=== PATIENT | female | born 1935 | race Caucasian/White ===

== ENCOUNTER 2020-09-26 15:51 | Emergency (ER) | payer MEDICARE, SELFPAY ==
--- NOTE | ~2020-09-26 | XR_ITS ---
XR hip LT min 3V w AP pelvis DATE: 09/26/2020 18:52 INDICATION: Left hip pain for 6 months, worse today. Weight-bearing pain. TECHNIQUE: AP pelvis. AP, lateral and crosstable lateral views of left hip COMPARISON: None FINDINGS: Diffuse osteopenia. Degenerative disc disease is noted at L4-5 and L5-S1. The pubic symphysis and sacroiliac joints are intact. No pelvic fracture or bone destruction is evide nt. There is joint space narrowing and prominent spurring at the left hip joint consistent with prominent osteoarthritis. No fracture or dislocation or bone destruction is evident. IMPRESSION: Severe left hip osteoarthritis Diffuse osteopenia Reviewed, dictated and finalized at location A. [employer] SAL[employer]
[2020-09-26 16:56] VITALS: BP 147/68; PULSE 84; RESP 16; TEMP 36.6; O2SAT 99
[2020-09-26 20:31] LABS: Basophils Percent Auto 0.4 % (0.2-1.2); Eosinophils Absolute Auto 0.1 K/mm3 (0-0.3); Eosinophils Percent Auto 1.2 % (0-4.4); Hemoglobin 12.5 g/dL (12.0-15.0); Immature Granulocyte Absolute 0.03 K/mm3 (0.00-0.031); Immature Granulocyte Percent A 0.4 % (0-0.5); Lymphocytes Absolute Auto 1.19 K/mm3 (0.9-3.2); Lymphocytes Percent Auto 14.2 % (18.3-44.2); Mean Corpuscular HGB Conc 32.9 g/dl (32-36); Mean Corpuscular Volume 85.2 fl (80-100); Mean Platelet Volume 10.8 fl (7.4-10.4); Monocytes Absolute Auto 1.2 K/mm3 (0.1-0.6); Monocytes Percent Auto 14.1 % (2.6-8.5); Neutrophils Absolute Auto 5.9 K/mm3 (1.3-6.7); Neutrophils Percent Auto 69.7 % (45.5-73.1); Platelet Count Result 193 k/mm3 (150-375); Red Blood Count 4.46 M/mm3 (4.2-5.4); Red Cell Distribution Width 12.8 % (11.5-14.5); White Blood Count 8.4 K/mm3 (4.5-10.0)
[2020-09-26] MEDS: ACETAMINOPHEN 500 MG TABLET 1000 MG PO (20:31)
[2020-09-26 20:40] LABS: Anion Gap 11 mmol/L (8-16); Blood Urea Nitrogen 24 mg/dL (7-17); Calcium 9.1 mg/dL (8.4-10.2); Carbon Dioxide 24 mmol/L (22-30); Chloride 99 mmol/L (98-107); Estimated CRCL calculation 26 ml/min; Estimated Glomerular Filt Rate 43; Glucose 122 mg/dL (65-105); Potassium 3.5 mmol/L (3.4-5.0); Sodium 134 mmol/L (137-145)
--- NOTE | 2020-09-26 20:53 | ED.GENADULT ---
HPI - General Adult General Chief complaint: Extremity Problem,Nontraumatic Stated complaint: left back, left leg pain Time Seen by Provider: 09/26/20 19:33 Source: patient and family Mode of arrival: ambulatory Limitations: no limitations History of Present Illness HPI narrative: Patient is an 85-year-old female who presents with low back pain that began today had trouble getting up out of her chair is localized to the lumbar region radiates into the lower extremity denies injury or trauma does have history of arthritis presents with her son patient has not been seen for this complaint patient notes she has historically taken ibuprofen with some improvement on arrival is in no distress patient notes that she has had some dark stools of late but denies any abdominal pain nausea vomiting fever chills Related Data Allergies Allergy/AdvReac Type Severity Reaction Status Date / Time adhesive tape Allergy Unknown Verified 09/17/11 15:20 benazepril Allergy Unknown Verified 08/25/12 15:14 irbesartan Allergy Unknown Verified 08/25/12 15:14 Review of Systems Review of Systems: All systems reviewed & are unremarkable except as noted in HPI and below PMFSH Family History Family History (Updated 06/13/16 @ 23:19 by DOCTOR UNKNOWN) Sibling Patient's brother is Other Family history of malignant neoplasm of breast in first degree relative Social History Social History Smoking status: Never smoker Alcohol intake: current Exam Narrative: Exam Narrative: GENERAL: Well-appearing, well-nourished, and in no acute distress. HEAD: Normocephalic, atraumatic. EYES: PERRLA and EOMI. ENT: Nares clear, no rhinorrhea or epistaxis. Mucous membranes moist. NECK: Supple. No adenopathy or masses. CHEST: Clear to auscultation. No respiratory distress. No wheezes rales or rhonchi HEART: Regular rate and rhythm. No murmur heard. Normal peripheral pulses. ABDOMEN: Soft, nontender, nondistended. Guaiac negative EXTREMITIES: Normal range of motion. No edema. Tenderness across the lower lumbar spine no rash or deformity noted SKIN: Warm, dry, no rash. NEURO: No focal deficits. Alert and oriented x3. Normal speech and gait PSYCH: Normal mood and affect. Course Course Emergency Course: Patient in the room in no distress aware of case findings treatment plan diagnosis Vital Signs Vital signs: Vital Signs Temperature 98 F 09/26/20 16:56 Pulse Rate 84 09/26/20 16:56 Respiratory Rate 16 09/26/20 16:56 Blood Pressure 147/68 H 09/26/20 16:56 Pulse Oximetry 99 09/26/20 16:56 Temperature 98 F 09/26/20 16:56 Pulse Rate 84 09/26/20 16:56 Respiratory Rate 16 09/26/20 16:56 Blood Pressure 147/68 H 09/26/20 16:56 Pulse Oximetry 99 09/26/20 16:56 Medical Decision Making MDM Narrative Medical decision making narrative: Patients pain is positional in nature and localized to back without signs of cord compression or cauda equina based on neurological exam, skeletal exam and history. No fever or other significant factors to suggest osteomyelitis or spinal epidural abscess. No symptoms or signs to suggest pain is referred from abdominal or / cardiopulmonary sources. No pulsatile masses noted on exam. Patient ambulates with steady gait and is stable for outpatient management given case findings. Vital Signs Vital Signs: Vital Signs Temperature 98 F 09/26/20 16:56 Pulse Rate 84 09/26/20 16:56 Respiratory Rate 16 09/26/20 16:56 Blood Pressure 147/68 H 09/26/20 16:56 Pulse Oximetry 99 09/26/20 16:56 Temperature 98 F 09/26/20 16:56 Pulse Rate 84 09/26/20 16:56 Respiratory Rate 16 09/26/20 16:56 Blood Pressure 147/68 H 09/26/20 16:56 Pulse Oximetry 99 09/26/20 16:56 Lab Data Result diagrams: 09/26/20 20:18 09/26/20 20:18 Labs: Lab Results 09/26/20 09/26/20 Rang
[2020-09-26] MEDS: LIDOCAINE 5% PATCH 1 PATCH TRANSDERM (21:07)
[2020-09-26 21:14] VITALS: BP 134/71; PULSE 88; RESP 16; TEMP 36.3; O2SAT 97
== END 2020-09-26 21:15 | disposition home or self-care (01) ==
PROVIDERS: Emergency Medicine Emergency Medical Services; Emergency Provider Emergency Medicine; PCP Internal Medicine
DX: M54.5 Low back pain (principal)
CPT/HCPCS: 36415; 73502; 80048; 85025; 99283; A9270

== ENCOUNTER 2021-07-10 15:05 | Inpatient (IN) | payer MEDICARE, SELFPAY ==
[2021-07-10] VITALS (35 sets, daily range): BP systolic 111–143; BP diastolic 58–84; PULSE 66–103; RESP 18–30; TEMP 36.6–36.9; O2SAT 86–100; BMI 20.4
--- NOTE | ~2021-07-10 | US_ITS ---
EXAMINATION: US thoracentesis DATE: 07/11/2021 15:03 INDICATION: pleural effusion TECHNIQUE: The procedure and its risks, benefits, and alternatives were discussed with the patient. P otential risks discussed included bleeding, infection, and pneumothorax. The patient understood the r isks and agreed to proceed. The skin was prepped and draped in sterile fashion. 1% lidocaine was used for local anesthesia. Under ultrasound guidance, a 5 Fr catheter with trochar was advanced into the left pleural effusion. Fluid was aspirated. The catheter was removed, and a dressing was applied. The re were no immediate complications. FINDINGS: Ultrasound images demonstrate a left pleural effusion and the catheter within the fluid. IMPRESSION: 1. Successful ultrasound-guided thoracentesis yielding 700 mL of clear, kalpana-colored fluid. Reviewed, dictated and finalized at location A. IMPRESSION: 1. Successful ultrasound-guided thoracentesis yielding 700 mL of clear, kalpana- colored fluid.
--- NOTE | ~2021-07-10 | CT_ITS ---
EXAMINATION: CT chest abdomen pelvis w con DATE: 07/10/2021 18:11 INDICATION: Chest pain, epigastric pain, nausea, vomiting TECHNIQUE: Computed tomography (CT) of the chest, abdomen, and pelvis was performed with 100 cc Omnip aque 350 intravenous contrast. Automated exposure control and iterative reconstruction technique were employed. Exam dose: 524.27 mGy-cm total exam DLP. COMPARISON: 07/10/2021 portable AP chest FINDINGS: CHEST CT: There are multiple hypoattenuating lesions of the left and right lobes of the thyroid gland. There is very prominent atherosclerotic irregular plaque formation and calcification of the thoracic and abdominal aorta. Coronary artery calcifications. There is cardiomegaly. No pericardial effusion. No hilar or mediastinal mass lesion or lymphadenopathy. There are are moderately large bilateral pleural effusions. There is interlobular septal soft tissue thickening throughout both lungs suggesting pulmonary inters titial edema and prominence of the fissures suggesting subpleural edema. There are patchy groundglass infiltrates in the upper lung zones and middle lobe and prominent preferentially dependent bilateral lower lobe infiltrate and/or atelectasis. Moderately large hiatal hernia. ABDOMEN/PELVIS CT: No hepatic, splenic, pancreatic, adrenal or renal space-occupying mass lesion is evident. Status post cholecystectomy. No bile duct or pancreatic duct dilatation. There is bilateral chronic pyelonephritis, more prominent on the left. No urinary tract calculus or hydroureteronephrosis is evident based upon review of the initial of the 2 current sets of images with minimal if any IV contrast material on board. There is extensive calcification of the abdominal aorta and iliac and femoral arteries. No abdominal aortic aneurysm. No intraperitoneal or retroperitoneal or pelvic mass lesion or adenopathy or ascites . Diverticulosis of left and right colon; no CT evidence of diverticulitis. Normal appendix. No bowel obstruction, bowel wall thickening, pneumatosis or intraperitoneal free air . The uterus, adnexal areas and urinary bladder are unremarkable. Severe degenerative disease of the lower cervical spine. There are degenerative changes of the thorac ic and lumbar spine including severe degenerative disc disease at L4-5 and L5-S1. Bilateral hip osteoarthritis, particularly severe on the left. IMPRESSION: Cardiomegaly, moderately large bilateral pleural effusions, pulmonary edema, bilateral p ulmonary infiltrates, suggesting congestive heart failure, pulmonary edema Patchy bilateral pulmonary infiltrates and atelectasis. Pneumonia is not excluded Small sliding hiatal hernia Status post cholecystectomy Bilateral chronic pyelonephritis, greater on the left Diverticulosis of the left and right colon; no evidence of diverticulitis Normal appendix Reviewed, dictated and finalized at Location [facility]. Reviewed, dictated and finalized at location A. IMPRESSION: Cardiomegaly, moderately large bilateral pleural effusions, pulmon petr edema, bilateral pulmonary infiltrates, suggesting congestive heart failure , pulmonary edema Patchy bilateral pulmonary infiltrates and atelectasis. Pneumonia is not exclud ed Small sliding hiatal hernia Status post cholecystectomy Bilateral chronic pyelonephritis, greater on the left Diverticulosis of the left and right colon; no evidence of diverticulitis Normal appendix
--- NOTE | ~2021-07-10 | XR_ITS ---
EXAMINATION: XR chest 1V portable DATE: 07/10/2021 15:44 INDICATION: Shortness of breath, hypoxia, difficulty breathing and chest pain. TECHNIQUE: frontal view of the chest was obtained. COMPARISON: Chest radiograph dated 02/05/2011 FINDINGS: Increased interstitial and airspace opacities in the bilateral mid and lower lung zones. More dense o pacities at the right costophrenic angle. No pneumothorax. Cardiomegaly. IMPRESSION: 1. Interstitial and airspace opacities in the bilateral mid to lower lung zones which could represent pulmonary edema or pneumonia. 2. More dense consolidation at the right costophrenic angle which could represent atelectasis, pneumo padmaja or small right pleural effusion. 3. Cardiomegaly. Reviewed, dictated and finalized at location B. IMPRESSION: 1. Interstitial and airspace opacities in the bilateral mid to lower lung zones which could represent pulmonary edema or pneumonia. 2. More dense consolidation at the right costophrenic angle which could represe nt atelectasis, pneumonia or small right pleural effusion. 3. Cardiomegaly.
--- NOTE | ~2021-07-10 | XR_ITS ---
EXAMINATION: XR chest 2V DATE: 07/13/2021 08:32 INDICATION: Congestive heart failure presenting with shortness of breath TECHNIQUE: frontal and lateral views of the chest were obtained. COMPARISON: Chest radiograph and CT dated 07/10/2021 FINDINGS: Skinfold projects over the lateral right mid and lower lung zones. Significant decrease in size of a now tiny right pleural effusion and resolution of prior left pleural effusion. Mild diffuse increased interstitial pattern in the dependent lungs consistent with mild pulmonary edema. Minimal streaky bi basilar atelectasis. No pneumothorax. Gas within a moderate-sized hiatal hernia. The cardiomediastina l silhouette is normal. Thoracic kyphosis. IMPRESSION: 1. Mild pulmonary edema in the dependent lungs along with minimal bibasilar atelectasis. 2. Moderate-sized hiatal hernia. Reviewed, dictated and finalized at location A. IMPRESSION: 1. Mild pulmonary edema in the dependent lungs along with minimal bibasilar ate lectasis. 2. Moderate-sized hiatal hernia.
--- NOTE | ~2021-07-10 | XR_ITS ---
EXAMINATION: [id number]_[id number]_CR DATE: 07/11/2021 14:54 INDICATION: Left pleural effusion status post thoracentesis. TECHNIQUE: Frontal and lateral views of the chest were obtained. COMPARISON: Chest single view 07/10/2021, chest CT 07/10/2010 on FINDINGS: There is a diffuse interstitial pattern in the lungs, consistent with mild pulmonary edema. There are airspace opacities at right lung base. There are moderate-sized right and small left pleur al effusions. No pneumothorax. Cardiomegaly is noted. IMPRESSION: 1. Moderate-sized right and small left pleural effusions with improvement on the left status post lef t thoracentesis. 2. Mild pulmonary edema. 3. Airspace opacities at right lung base, likely atelectasis. 4. Cardiomegaly. Reviewed, dictated and finalized at location A. IMPRESSION: 1. Moderate-sized right and small left pleural effusions with improvement on th e left status post left thoracentesis. 2. Mild pulmonary edema. 3. Airspace opacities at right lung base, likely atelectasis. 4. Cardiomegaly.
--- NOTE | 2021-07-10 15:32 | ECG_ITS ---
Measurements Intervals [place] Rate: 100 P: 76 PA: 196 QRS: 26 QRSD: 106 T: -35 QT: 267 QTc: 345 Interpretive Statements SINUS TACHYCARDIA ATRIAL COUPLET, ATRIAL AND VENTRICULAR PREMATURE COMPLEXES ST-T WAVE ABNORMALITY IN ANTEROLATERAL LEADS- CONSIDER ISCHEMIA BASELINE ARTIFACT- II, III, AVF, V1-V2 ABNORMAL ECG Electronically Signed On 07-10-2021 15:37:08 CDT by Alden Mason D.O.
--- NOTE | 2021-07-10 15:33 | ED.ABDPAIN ---
HPI - Abdominal Pain General Chief Complaint: Abdominal Pain Stated Complaint: CP/SOB Time Seen by Provider: 07/10/21 15:31 Source: patient Mode of arrival: ambulatory Limitations: no limitations History of Present Illness HPI narrative: Patient is an 85-year-old female with a history of hypertension, hyperlipidemia, depression, anxiety who presents for evaluation of numerous symptoms. Patient reports that her pain began in her upper abdomen shortly prior to arrival. It radiated into her chest and left shoulder. Patient denied any back pain or ripping or tearing sensation to the flank. Patient states that the pain was associated with nausea and one episode of nonbloody, nonbilious emesis. Patient with some associated epigastric pain that has lingered. She denies any current frontal chest pain. She does report shortness of breath and dry cough. She denies loss of sense of taste or smell, rhinorrhea, sore throat or congestion. She denies any fever or chills. Patient is vaccinated for Covid. No history of Covid infection. Of note, patient oxygen saturations were 70s on room air, thus the patient was placed on nonrebreather at 10 L with improvement to 94%. Related Data Home Medications Medication Instructions Recorded Confirmed atorvastatin PO 07/10/21 citalopram mg 07/10/21 diltiazem HCl PO 07/10/21 spironolactone PO 07/10/21 Allergies Allergy/AdvReac Type Severity Reaction Status Date / Time adhesive tape Allergy Unknown Unknown Verified 07/10/21 16:06 benazepril Allergy Unknown Unknown Verified 07/10/21 16:06 irbesartan Allergy Unknown Unknown Verified 07/10/21 16:06 Review of Systems Review of Systems: CONSTITUTIONAL: Denies fever, chills, or sweats. EYES: Denies visual changes, redness, or discharge. ENT: Denies rhinorrhea, congestion, sore throat, or otalgia. CARDIOVASCULAR: Denies chest pain, palpitations, or edema. RESPIRATORY: Reports cough and shortness of breath GASTROINTESTINAL: Reports abdominal pain, nausea, vomiting and diarrhea GENITOURINARY: Denies dysuria or hematuria. SKIN: Denies rash or itching. MUSCULOSKELETAL: Denies back pain, joint pain, or myalgia. NEUROLOGIC: Denies headache, numbness, or weakness. PSYCHIATRIC: Reports history of anxiety and depression [facility] Family History Family History Sibling Patient's brother is Other Family history of malignant neoplasm of breast in first degree relative Social History Social History Smoking status: Never smoker Alcohol intake: current Exam Narrative: GENERAL: Awake, alert, conversant HEAD: Normocephalic, atraumatic. EYES: PERRLA and EOMI. ENT: Nares clear, no rhinorrhea or epistaxis. Mucous membranes moist. NECK: Supple. CHEST: Tachypneic, able to speak in full sentences, coarse breath sounds bilaterally, no wheezing HEART: Tachycardic rate, sinus rhythm ABDOMEN:Non distended, mild periumbilical abdominal tenderness without rebound, rigidity or guarding EXTREMITIES: Normal range of motion. No edema. SKIN: Warm, dry, no rash. NEURO:No focal deficits. Alert and oriented x3 Course Vital Signs Vital signs: Vital Signs Temperature 36.9 C 07/10/21 15:18 Pulse Rate 103 H 07/10/21 15:18 Respiratory Rate 21 H 07/10/21 15:18 Blood Pressure 134/84 07/10/21 15:18 Pulse Oximetry 93 07/10/21 15:18 Temperature 36.9 C 07/10/21 15:18 Pulse Rate 82 07/10/21 19:31 Respiratory Rate 22 H 07/10/21 19:31 Blood Pressure 130/67 07/10/21 19:31 Pulse Oximetry 92 07/10/21 19:31 MDM - Abdominal Pain MDM Narrative Medical decision making narrative: Patient is an 85-year-old female who presented for evaluation of shortness of breath, abdominal pain, nausea and vomiting. At the time of assessment, patient is found to be profoundly hypoxic, placed on nonrebreather mask. Patient is ta
--- NOTE | 2021-07-10 15:34 | PC.NURSE ---
Pt to ED via EMS with complaints of epigastric pain, nausea, and vomiting starting today. EMS reports initial SPO2 in the 70s on their arrival. Pt was placed on 10L/NRB bringing SPO2 to 97%. Pt reports non-productive cough. Denies sob or fevers. Denies hx of O2 use.
--- NOTE | 2021-07-10 15:59 | PC.NURSE ---
O2 decreased to 6L/NC. Pt maintaining SPO2 > 90%.
[2021-07-10] MEDS: SODIUM CHLORIDE 0.9% IV 1,000 ML 999 ML IV CONT (16:05)
[2021-07-10 16:18] LABS: Alveolar/Arterial O2 Gradient 199.3 mmHg; Base Excess ABG 0.5 mEq/l (+/-2.0); Carboxyhemoglobin 0.7 % THb (0-2.0); Fractional Inspired Oxygen 40 %; HCO3 ABG 22.8 mEq/l (22.0-26.0); Methemoglobin ABG 0.4 %THb (0-1.5); Oxygen Content ABG 15.5 %vol (16.0-22.0); Oxygen Saturation ABG 89.8 % (95.0-100.0); Oxyhemoglobin 85.8 % THb (90.0-100.0); PCO2 ABG 30.1 mmHg (35.0-45.0); PO2 ABG 51.3 mmHg (80.0-100.0); PO2 FiO2 Ratio Arterial Blood 1.28 %; Reduced Hemoglobin 13.1 %THb (0-5.0); Total Hemoglobin 12.9 g/dL (12.0-18.0); pH ABG 7.498 (7.350-7.450)
[2021-07-10 16:19] LABS: Device NASAL CANNULA; Modified Allen's Test Pass; Site Drawn RIGHT RADIAL
[2021-07-10 17:27] LABS: Lactic Acid Reflex 1.7 mmol/L (0.7-2.1)
[2021-07-10 17:28] LABS: Alanine Aminotransferase 13 U/L (4-35); Alkaline Phosphatase 85 U/L (38-126); Anion Gap 8 mmol/L (8-16); Aspartate Amino Transferase 27 U/L (14-36); Bilirubin,Total 1.1 mg/dL (0.2-1.3); Blood Urea Nitrogen 13 mg/dL (7-17); Calcium 9.1 mg/dL (8.4-10.2); Carbon Dioxide 23 mmol/L (22-30); Chloride 101 mmol/L (98-107); Estimated CRCL calculation 34 ml/min; Estimated Glomerular Filt Rate 60; Glucose 111 mg/dL (65-110); Lipase 107 U/L (23-300); Potassium 3.3 mmol/L (3.4-5.0); Sodium 132 mmol/L (137-145)
[2021-07-10 17:32] LABS: INR 1.1; Prothrombin Time 13.8 Seconds (11.1-14.7)
[2021-07-10 17:39] LABS: NT Pro B Type Natriuretic Pept 4240 pg/mL (5-100)
[2021-07-10 17:44] LABS: Hematocrit 40.2 % (37.0-47.0); Hemoglobin 13.1 g/dL (12.0-15.0); Mean Corpuscular HGB Conc 32.6 g/dl (32-36); Mean Corpuscular Hemoglobin 28.7 pg (26-34); Mean Platelet Volume 10.8 fl (7.4-10.4); Platelet Count Result 162 k/mm3 (150-375); Red Blood Count 4.57 M/mm3 (4.2-5.4); Red Cell Distribution Width 12.5 % (11.5-14.5); White Blood Count 11.8 K/mm3 (4.5-10.0)
[2021-07-10 17:51] LABS: Partial Thromboplastin Time < 20.0 SECONDS (22.3-36.8); Troponin I 0.328 ng/mL (0.000-0.034)
[2021-07-10 18:38] LABS: EDCOVIDSCREEN Negative (Negative)
[2021-07-10 18:40] LABS: Band Neutrophils Percent 2 % (0-6); Monocytes Absolute Manual 1.18 K/mm3 (0.1-0.90); Monocytes Percent Manual 10 % (3-9); Neutrophils Absolute Manual 9.91 K/mm3 (1.7-7.2); Neutrophils Percent Manual 82 % (46-73); Platelet Estimate Adequate (Adequate); Total Cells Counted 100
[2021-07-10] MEDS: FUROSEMIDE INJ 40 MG/4 ML VIAL 20 MG IV PUSH (19:03)
[2021-07-10 19:25] LABS: Troponin I 0.686 ng/mL (0.000-0.034)
--- NOTE | 2021-07-10 20:00 | PM.IMHP ---
H&P: HPI History of Present Illness Date/Time: 07/10/21 20:00 Chief Complaint: Multiple complaints Narrative: 85-year-old female with past medical history of breast cancer, malignant melanoma, hypertension, hyperlipidemia and prior cholecystectomy who presented to the ER with multiple complaints. Her main complaint which was upper abdominal pain that started just prior to arrival. Pain radiated to her chest and left shoulder. Her pain was associated with 1 episode of vomiting and persistent nausea. She reports frequent GERD symptoms if she eats the wrong types of food. Her emesis was nonbloody and nonbilious. Her upper abdominal pain has been persistent. But had resolved by the time she err arrived to the IMU. She has had associated shortness of breath and dry cough for the last 2 weeks or so. She has not had any fevers, chills, rhinorrhea, nasal congestion, or loss of sense of taste or smell. She denies any recent ill contacts. She is fully vaccinated against COVID-19 with a [employer] vaccine at least several months ago. Patient was markedly hypoxic on arrival to the ER with sats in 70s. She to was placed on 10 L nasal cannula to maintain oxygen saturations of 92%. On arrival to the IMU the patient was satting 83% and her oxygen was increased to 15 L high-flow but remained with oxygen saturations of 85%. She was reporting persistent heartburn and nausea. She reported resolution of her abdominal pain. She was afebrile on presentation. She denies any orthopnea, paroxysmal nocturnal dyspnea or lower extremity swelling. She reports chronic swelling of the right lower extremity ever since she had her twin sons. CT of the chest abdomen pelvis with contrast demonstrated cardiomegaly, moderately large bilateral pleural effusions, pulmonary edema, bilateral pulmonary infiltrates and chronic bilateral pyelonephritis left greater than right. She received initial treatment with pain medications and IV fluids. After imaging result returned the patient received Lasix 20 mg in the ER and was initiated on antibiotic therapy with Rocephin and azithromycin for possible pneumonia given her mild leukocytosis. Her rapid COVID screen was negative. Review of Systems Review of Systems: 12 systems were reviewed with pertinent positives and negatives per HPI. Except as documented in the HPI, all other systems were reviewed and are negative. [facility] Past Medical History Medical History (Updated 07/10/21 @ 20:54 by Radha Basilio DO) Anxiety Breast cancer Depression Dermatomyositis Esophageal dilatation (~1999) Essential hypertension GERD (gastroesophageal reflux disease) Hyperlipidemia Malignant melanoma (~2009) Excised from right arm Migraines Surgical History Surgical History (Updated 07/10/21 @ 20:24 by Radha Basilio DO) History of classical section 6 para 7 History of colonoscopy with polypectomy History of hip surgery Right hip surgery at 9 years old at which time she required a blood transfusion History of partial mastectomy of right breast (~2010) Status post cataract extraction of both eyes with insertion of intraocular lens Status post cholecystectomy Open cholecystectomy Family History Family History Sibling Acute myocardial infarction, Onset Age: 70 Mother Old age, Onset Age: 95 Father Parkinsons disease, Onset Age: 80 Sibling Acute myocardial infarction, Onset Age: 49 Tobacco abuse disorder Daughter Breast cancer Other Family history of malignant neoplasm of breast in first degree relative Social History Social History (Updated 07/10/21 @ 22:19 by Radha Basilio DO) Social History: She is . She lives alone in a town home. 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 She has 7 children 6 sons and 1 daughter. Code status: DNR/DNI per patient request
[2021-07-10] MEDS: POTASSIUM CHLORIDE 20 MEQ TABLET 40 MEQ PO (20:14)
[2021-07-10] MEDS: FUROSEMIDE INJ 40 MG/4 ML VIAL IV PUSH (20:16)
[2021-07-10] MEDS: ONDANSETRON INJ 4 MG/2 ML VIAL IV PUSH (20:41)
[2021-07-10 21:14] LABS: Add Urine Microscopic? NO; Appearance Urine Clear (Clear); Bilirubin Urine Negative (Negative); Blood Urine Negative (Negative); Color Urine Yellow (Yellow); Glucose Urine UA Negative (Negative); Ketones Urine Negative (Negative); Leukocyte Esterase Ur Negative LEU/UL (Negative); Nitrate Urine Negative (Negative); Protein Urine Negative (Negative); Urobilinogen Urine 0.2 mg/dL (<2.0); pH Urine 6.5 (5.0-9.0)
--- NOTE | 2021-07-10 21:48 | ECG_ITS ---
Measurements Intervals [place] Rate: 77 P: [place]: 0 QRS: 43 QRSD: 98 T: -1 QT: 402 QTc: 457 Interpretive Statements SINUS RHYTHM BORDERLINE ST-T WAVE ABNORMALITY- ANTEROLAT/INF LEADS BASELINE ARTIFACT- I, II, III, AVR, AVL, AVF, V1-V6 BORDERLINE ECG Electronically Signed On 07-11-2021 8:35:46 CDT by Alden Mason D.O.
[2021-07-10] MEDS: WATER FOR IRRIGATION, STERILE 1,000 ML BOTTLE 1000 ML (21:59)
--- NOTE | 2021-07-10 22:05 | PC.NURSE ---
This patient, Sharri Ramirez, was admitted to IMU Room 232-01 on 07/10/21 at 2206. Patient/family oriented to hospital policies and general routines including ID bracelet, bed and alarms, visiting hours, pain management, procedures, bathroom and other care routines, personal items, smoking policy, room service/diet, and visiting hours. Information on how to activate the Rapid Response Team has been discussed. Patient/Family are encouraged to report perceived risks to care and to ask questions if they do not understand what they are told or what they should do.
[2021-07-10] MEDS: FAMOTIDINE 20 MG/2 ML VIAL IV PUSH (22:26)
[2021-07-10] MEDS: ASPIRIN 325 MG TABLET PO (23:25)
[2021-07-11] VITALS (21 sets, daily range): BP systolic 119–132; BP diastolic 56–92; PULSE 57–89; RESP 14–26; TEMP 36.3–36.9; O2SAT 92–100
[2021-07-11] MEDS: ENOXAPARIN 60 MG/0.6 ML SYRINGE 54 MG SUB-Q ×2 (00:43→21:37)
[2021-07-11 05:19] LABS: Hematocrit 35.7 % (37.0-47.0); Hemoglobin 11.8 g/dL (12.0-15.0); Mean Corpuscular HGB Conc 33.1 g/dl (32-36); Mean Corpuscular Hemoglobin 28.4 pg (26-34); Mean Corpuscular Volume 85.8 fl (80-100); Mean Platelet Volume 11.3 fl (7.4-10.4); Platelet Count Result 168 k/mm3 (150-375); Red Blood Count 4.16 M/mm3 (4.2-5.4); Red Cell Distribution Width 12.3 % (11.5-14.5); White Blood Count 5.8 K/mm3 (4.5-10.0)
[2021-07-11 05:33] LABS: Anion Gap 6 mmol/L (8-16); Blood Urea Nitrogen 11 mg/dL (7-17); Calcium 9.2 mg/dL (8.4-10.2); Carbon Dioxide 27 mmol/L (22-30); Chloride 102 mmol/L (98-107); Estimated CRCL calculation 35 ml/min; Estimated Glomerular Filt Rate 60; Glucose 104 mg/dL (65-110); Magnesium 1.5 mg/dL (1.6-2.3); Potassium 3.7 mmol/L (3.4-5.0); Sodium 135 mmol/L (137-145)
[2021-07-11 05:50] LABS: Amylase 61 U/L (30-110); Cholesterol 113 mg/dL (0-200); Lactate Dehydrogenase 364 U/L (313-618); Triglycerides 68 mg/dL (<150)
--- NOTE | 2021-07-11 06:08 | ECG_ITS ---
Measurements Intervals [place] Rate: 80 P: 90 MO: 185 QRS: 43 QRSD: 102 T: -15 QT: 387 QTc: 447 Interpretive Statements SINUS RHYTHM NONSPECIFIC ST & T-WAVE ABNORMALITY- ANT/INF LEADS BORDERLINE ECG Electronically Signed On 07-11-2021 9:15:13 CDT by Alden Mason D.O.
--- NOTE | 2021-07-11 08:23 | PM.CNCAR ---
Assessment and Plan Assessment and plan (1) Elevated troponin: Code(s): R77.8 - Other specified abnormalities of plasma proteins Status: Acute Assessment and Plan: Troponin trending up and not peaked. Could be due to pneumonia and CHF. ACS not ruled out. Agree with Lovenox, aspirin. Stop Diltiazem. Start Metoprolol Tartate 50 mg BID. Obtain echo. (2) Pneumonia: Qualifiers: Laterality: bilateral Lung location: lower lobe of lung Pneumonia type: due to unspecified organism Qualified Code(s): J18.9 - Pneumonia, unspecified organism Code(s): J18.9 - Pneumonia, unspecified organism Status: Acute Assessment and Plan: On antibiotics and managed per hospitalist. Covid status pending. (3) Acute respiratory failure with hypoxia: Code(s): J96.01 - Acute respiratory failure with hypoxia Status: Acute Assessment and Plan: Due to large pleural effusions, diagnostic and therapeutic thoracentesis has been ordered. (4) Hypertension: Code(s): I10 - Essential (primary) hypertension Status: Acute Assessment and Plan: Stable. (5) Dyslipidemia: Code(s): E78.5 - Hyperlipidemia, unspecified Status: Acute Assessment and Plan: On Atorvastatin. History of Present Illness History of Present Illness Consult date/time: 07/11/21 08:23 Reason for consult: Elevated troponin and CHF. 85 yr old woman presented to ER last night for abdominal pain. She has a history of dyslipidemia, hypertension. Most information obtained from chart as patient is on CPAP machine currently. States she had abdominal pain radiating to chest and left shoulder that resolved now. She had vomited once and had nausea. Her pulse ox was 70's in ER that improved with Lasix and oxygen to low 90% range. EKG shows sinus tachycardia at 100 bpm, PAC's and PVC, ST-T wave abnormality, consider anterolateral ischemia. Troponin 0.328 went to 1.7 on fourth draw. ABG 7.49/30/51 n 40% FiO2. CT chest: Moderately large bilateral pleural effusions with pulm edema. Patchy bilateral infiltrates could be pneumonia. Chronic bilateral pyeloonephritis. Mag 1.5. Potassium 3.3, Sodium 132, WBC 11.8. Reason For Visit: Respiratory failure, Pneumonia, CHF Review of Systems Review of Systems: All systems reviewed & are unremarkable except as noted in HPI and below Constitutional: Constitutional: Reports as per HPI, Denies chills and Denies fever(s) Cardiovascular: Cardiovascular: Reports as per HPI, Reports chest pain, Denies leg edema and Denies lightheadedness Respiratory: Respiratory: Reports as per HPI and Reports dyspnea Gastrointestinal: Gastrointestinal: Reports as per HPI and Reports abdominal pain Genitourinary: Genitourinary: Reports as per HPI Musculoskeletal: Musculoskeletal: Reports as per HPI Neurologic: Reports as per HPI, Denies dizziness and Denies syncope [facility] Past Medical History Medical History (Updated 07/11/21 @ 08:30 by Alden Mason DO) Anxiety Breast cancer Depression Dermatomyositis Esophageal dilatation (~1999) Essential hypertension GERD (gastroesophageal reflux disease) Hyperlipidemia Malignant melanoma (~2009) Excised from right arm Migraines Surgical History Surgical History (Updated 07/10/21 @ 20:24 by Radha Basilio DO) History of classical section 6 para 7 History of colonoscopy with polypectomy History of hip surgery Right hip surgery at 9 years old at which time she required a blood transfusion History of partial mastectomy of right breast (~2010) Status post cataract extraction of both eyes with insertion of intraocular lens Status post cholecystectomy Open cholecystectomy Family History Family History Sibling Acute myocardial infarction, Onset Age: 70 Mother Old age, Onset Age: 95 Father Parkinsons disease, Onset Age: 80
[2021-07-11] MEDS: FUROSEMIDE INJ 40 MG/4 ML VIAL IV PUSH ×2 (09:55→16:54)
[2021-07-11] MEDS: FAMOTIDINE 20 MG/2 ML VIAL IV PUSH ×2 (09:55→21:37)
[2021-07-11] MEDS: ATORVASTATIN 20 MG TABLET PO (09:56)
[2021-07-11] MEDS: METOPROLOL TARTRATE 50 MG TAB PO ×2 (09:56→21:37)
[2021-07-11] MEDS: MAGNESIUM SULF 2 GM/WATER 50ML 2 GM/50 ML BAG IVPB (09:56)
[2021-07-11] MEDS: CITALOPRAM HYDROBROMIDE 20 MG TABLET PO (09:56)
[2021-07-11] MEDS: ASPIRIN 81 MG CHEWABLE TABLET PO (09:56)
[2021-07-11] MEDS: SPIRONOLACTONE 25 MG TABLET PO (09:57)
--- NOTE | 2021-07-11 13:48 | PM.IMPN ---
Progress Note: A&P Assessment and Plan (1) Acute respiratory failure with hypoxia: Code(s): J96.01 - Acute respiratory failure with hypoxia Status: Acute (2) Elevated troponin: Code(s): R77.8 - Other specified abnormalities of plasma proteins Status: Acute (3) Pneumonia: Qualifiers: Laterality: bilateral Lung location: lower lobe of lung Pneumonia type: due to unspecified organism Qualified Code(s): J18.9 - Pneumonia, unspecified organism Code(s): J18.9 - Pneumonia, unspecified organism Status: Acute (4) Hypokalemia: Code(s): E87.6 - Hypokalemia Status: Acute (5) Acute respiratory alkalosis: Code(s): E87.3 - Alkalosis Status: Acute Additional Plan Acute hypoxic respiratory failure on high-flow oxygen via nasal cannula need to put on CPAP. Likely related to combination of CHF and pneumonia. ABG with respiratory alkalosis Congestive heart failure echo pending cardiology on board. Diuresis with 40 mg IV Lasix twice daily. BNP at [address]-elevation [place] troponin peaking at 1.7 on Lovenox. No active chest pain no acute changes in the EKG. Could be from underlying CHF/pneumonia further workup per Cardiology Bilateral pneumonia continue on ceftriaxone and azithromycin. Rapid swab for COVID negative sent for COVID PCR await that continue on airborne precautions for possible COVID. She has been vaccinated with Pelon & Pelon vaccine several months ago. Hypomagnesemia replace Bilateral pleural effusion planned for thoracentesis sent for pleural fluid analysis likely due to CHF DVT prophylaxis full-dose Lovenox Abnormal CT scan showing bilateral chronic pyelonephritis greater on the left side urinalysis here is negative Do not resuscitate Subjective Date/time seen: 07/11/21 13:48 Interval history: Remains on CPAP. She reports shortness of breath but is better since placed on CPAP. She denies any chest pain. No leg swelling reported. There is history of cough Review of Systems Review of Systems: All systems reviewed & are unremarkable except as noted in HPI and below Exam Narrative: General: Frail, elderly, no acute distress on CPAP HEENT: Head is normocephalic atraumatic Respiratory: Decreased breath sounds at the bases bilaterally no accessory muscle use Cardiovascular: Regular rate, regular rhythm, 2+ bilateral radial pedal pulses, no JVD Gastrointestinal: Soft, nontender, nondistended, positive bowel sounds, no mayco hepatosplenomegaly Skin: Generalized pallor, non jaundice Musculoskeletal: No clubbing, no cyanosis, no edema Neurological: Alert and oriented x3, speech is clear, no facial asymmetry, no localizing neurologic deficits noted on limited exam Psychiatric: Pleasant and cooperative Objective Data Vital Signs Vital Signs: Vital Signs - 24 hr 07/10/21 15:18 07/10/21 15:30 07/10/21 16:05 Temperature 98.5 F Pulse Rate 103 H 102 H 95 Respiratory Rate 21 H 26 H 18 Blood Pressure 134/84 128/69 124/61 Pulse Oximetry 93 94 91 07/10/21 16:10 07/10/21 16:15 07/10/21 16:16 Temperature Pulse Rate 95 93 91 Respiratory Rate 23 H 23 H 25 H Blood Pressure 131/67 Pulse Oximetry 88 L 07/10/21 16:30 07/10/21 16:31 07/10/21 16:45 Temperature Pulse Rate 85 84 85 Respiratory Rate 26 H 24 H Blood Pressure 129/67 Pulse Oximetry 90 89 L 07/10/21 16:46 07/10/21 17:00 07/10/21 17:01 Temperature Pulse Rate 84 92 86 Respiratory Rate 25 H 28 H Blood Pressure 141/59 H 132/73 Pulse Oximetry 92 90 07/10/21 17:02 07/10/21 17:15 07/10/21 17:16 Temperature Pulse Rate 82 83 87 Respiratory Rate 20 20 24 H Blood Pressure 130/58 L Pulse Oximetry 91 94 95 07/10/21 17:30 07/10/21 17:31 07/10/21 17:32 Temperature Pulse Rate 83 80 78 Respiratory Rate 20 26 H 20 Blood Pressure 130/66 Pulse Oximetry 90 89 L 90 07/10/21 18:04 07/10/21 18:23 07/10/21 18:30 Temperature Pulse Rate
[2021-07-11 18:58] LABS: Pleural fluid source Pleural fluid
[2021-07-11 18:59] LABS: Appearance Pleural Fluid Hazy (Clear); Color Pleural Fluid Yellow (Colorless); Nucleated Cell Pleural Fluid 548 /uL (0-1000)
[2021-07-11 19:00] LABS: Lymphocytes Pleural Fluid 51 %; Macrophages Pleural Fluid 4 %; Mesothelial Cells Pleural Flui 2 %; Monocytes Pleural Fluid 40 %; Neutrophils Pleural Fluid 3 % (0-25); RBC Pleural Fluid 3832 /uL (0-0)
[2021-07-11 20:01] LABS: SARS-CoV-2 RNA PCR Negative
[2021-07-12] VITALS (25 sets, daily range): BP systolic 103–141; BP diastolic 48–89; PULSE 59–77; RESP 12–18; TEMP 36.2–37; O2SAT 93–100
[2021-07-12 05:18] LABS: Basophils Percent Auto 0.6 % (0.2-1.2); Eosinophils Absolute Auto 0.1 K/mm3 (0-0.3); Eosinophils Percent Auto 2.3 % (0-4.4); Hematocrit 37.5 % (37.0-47.0); Hemoglobin 12.1 g/dL (12.0-15.0); Immature Granulocyte Absolute 0.02 K/mm3 (0.00-0.031); Immature Granulocyte Percent A 0.4 % (0-0.5); Lymphocytes Absolute Auto 0.88 K/mm3 (0.9-3.2); Lymphocytes Percent Auto 16.7 % (18.3-44.2); Mean Corpuscular HGB Conc 32.3 g/dl (32-36); Mean Corpuscular Hemoglobin 28.3 pg (26-34); Mean Corpuscular Volume 87.8 fl (80-100); Mean Platelet Volume 11.2 fl (7.4-10.4); Monocytes Absolute Auto 0.8 K/mm3 (0.1-0.6); Monocytes Percent Auto 15.7 % (2.6-8.5); Neutrophils Absolute Auto 3.4 K/mm3 (1.3-6.7); Neutrophils Percent Auto 64.3 % (45.5-73.1); Platelet Count Result 163 k/mm3 (150-375); Red Blood Count 4.27 M/mm3 (4.2-5.4); Red Cell Distribution Width 12.5 % (11.5-14.5); White Blood Count 5.3 K/mm3 (4.5-10.0)
[2021-07-12 05:29] LABS: Calcium 8.8 mg/dL (8.4-10.2); Chloride 99 mmol/L (98-107); Estimated CRCL calculation 31 ml/min; Estimated Glomerular Filt Rate 53; Potassium 3.4 mmol/L (3.4-5.0)
[2021-07-12 05:44] LABS: Troponin I 0.612 ng/mL (0.000-0.034)
[2021-07-12 06:06] LABS: Anion Gap 8 mmol/L (8-16); Blood Urea Nitrogen 16 mg/dL (7-17); Carbon Dioxide 26 mmol/L (22-30); Glucose 92 mg/dL (65-110); Magnesium 1.8 mg/dL (1.6-2.3); Sodium 133 mmol/L (137-145)
--- NOTE | 2021-07-12 07:41 | PM.PNCARD ---
Progress Note: A&P Assessment and Plan (1) Elevated troponin: Code(s): R77.8 - Other specified abnormalities of plasma proteins Status: Acute Assessment and Plan: Troponin trending up and peaked at 1.7. Could be due to pneumonia and CHF. Doubt ACS. On Lovenox, aspirin. Stop Diltiazem. On Metoprolol Tartate 50 mg BID. Change Lovenox to DVT prophylaxis dose. Obtain echo. (2) Pneumonia: Qualifiers: Laterality: bilateral Lung location: lower lobe of lung Pneumonia type: due to unspecified organism Qualified Code(s): J18.9 - Pneumonia, unspecified organism Code(s): J18.9 - Pneumonia, unspecified organism Status: Acute Assessment and Plan: On antibiotics and managed per hospitalist. Covid status pending. (3) Acute respiratory failure with hypoxia: Code(s): J96.01 - Acute respiratory failure with hypoxia Status: Acute Assessment and Plan: Due to large pleural effusions, diagnostic and therapeutic thoracentesis has been ordered. (4) Hypertension: Code(s): I10 - Essential (primary) hypertension Status: Acute Assessment and Plan: Stable. (5) Dyslipidemia: Code(s): E78.5 - Hyperlipidemia, unspecified Status: Acute Assessment and Plan: On Atorvastatin. Subjective Date/time seen: 07/12/21 07:41 Denies chest pain. States breathing is better. Exam Const: General: cooperative, healthy appearing and comfortable Resp: Auscultation: no crackles, no rales, no rhonchi, no wheezes and diminished lung sounds Cardio: Jugular venous distension: no JVD Rate: regular rate Rhythm: regular rhythm Heart sounds: no murmurs Peripheral pulses: dorsalis pedis present GI: GI Palp: No abdominal tenderness and Yes Soft to palpation Neuro: General: oriented to person, oriented to place and oriented to time Extrem: Right lower extremity: no edema Left lower extremity: no edema Objective Data Vital Signs Vital Signs: Vital Signs - 24 hr 07/11/21 08:00 07/11/21 08:09 07/11/21 09:56 Temperature 97.8 F Pulse Rate 88 82 83 Respiratory Rate 20 Blood Pressure 119/74 Pulse Oximetry 92 100 07/11/21 10:00 07/11/21 11:18 07/11/21 11:58 Temperature 98.4 F Pulse Rate 79 70 Respiratory Rate 14 Blood Pressure 125/64 Pulse Oximetry 93 93 100 07/11/21 12:00 07/11/21 13:29 07/11/21 15:49 Temperature Pulse Rate 73 75 Respiratory Rate Blood Pressure Pulse Oximetry 94 07/11/21 16:00 07/11/21 17:42 07/11/21 20:00 Temperature 98.1 F 97.3 F L Pulse Rate 74 71 76 Respiratory Rate 16 16 Blood Pressure 132/92 H 122/56 L Pulse Oximetry 100 98 07/11/21 21:37 07/11/21 22:00 07/11/21 23:30 Temperature Pulse Rate 89 75 Respiratory Rate Blood Pressure Pulse Oximetry 94 07/11/21 23:47 07/12/21 00:00 07/12/21 02:00 Temperature 97.2 F L Pulse Rate 69 75 71 Respiratory Rate 26 H 12 Blood Pressure 132/66 Pulse Oximetry 99 100 07/12/21 04:00 07/12/21 06:00 Temperature 97.5 F L Pulse Rate 75 67 Respiratory Rate 18 Blood Pressure 141/67 H Pulse Oximetry 96 Intake/Output Intake/Output: Intake & Output 07/09/21 07/10/21 07/11/21 07/12/21 23:59 23:59 23:59 23:59 Intake Total 1050 1140 100 Output Total 2900 Balance 1050 -1760 100 Meds/Results Medications: Active Medications Generic Name Dose Route Start Last Admin Trade Name Freq PRN Reason Stop Dose Admin Acetaminophen 650 mg 07/10/21 18:55 Acetaminophen 325 Mg Tablet PO Q4H PRN Mild Pain (1-3) or Fever Aspirin 81 mg 07/11/21 08:00 07/11/21 09:56 Aspirin 81 Mg Chewable Tablet PO 81 mg DAILY@0800 FELIX Administration Atorvastatin Calcium 20 mg 07/11/21 09:00 07/11/21 09:56 Atorvastatin 20 Mg Tablet PO 20 mg DAILY FELIX Administration Calcium Carbonate 200 mg 07/10/21 23:28 Calcium Carbonate (Tums) 500 Mg (200 Mg Elemental) PO PRN PRN H
[2021-07-12] MEDS: FUROSEMIDE INJ 40 MG/4 ML VIAL IV PUSH ×2 (08:42→17:17)
[2021-07-12] MEDS: ASPIRIN 81 MG CHEWABLE TABLET PO (08:42)
[2021-07-12] MEDS: FAMOTIDINE 20 MG/2 ML VIAL IV PUSH ×2 (08:42→20:05)
[2021-07-12] MEDS: ATORVASTATIN 20 MG TABLET PO (08:42)
[2021-07-12] MEDS: METOPROLOL TARTRATE 50 MG TAB PO ×2 (08:42→20:05)
[2021-07-12] MEDS: CITALOPRAM HYDROBROMIDE 20 MG TABLET PO (08:42)
[2021-07-12] MEDS: SPIRONOLACTONE 25 MG TABLET PO (08:42)
[2021-07-12] MEDS: ENOXAPARIN 40 MG/0.4 ML SYRINGE SUB-Q (09:09)
--- NOTE | 2021-07-12 13:48 | PM.IMPN ---
Progress Note: A&P Assessment and Plan (1) Acute respiratory failure with hypoxia: Code(s): J96.01 - Acute respiratory failure with hypoxia Status: Acute (2) Elevated troponin: Code(s): R77.8 - Other specified abnormalities of plasma proteins Status: Acute (3) Pneumonia: Qualifiers: Laterality: bilateral Lung location: lower lobe of lung Pneumonia type: due to unspecified organism Qualified Code(s): J18.9 - Pneumonia, unspecified organism Code(s): J18.9 - Pneumonia, unspecified organism Status: Acute (4) Hypokalemia: Code(s): E87.6 - Hypokalemia Status: Acute (5) Acute respiratory alkalosis: Code(s): E87.3 - Alkalosis Status: Acute Additional Plan # Acute hypoxic respiratory failure on high-flow oxygen via nasal cannula need to put on CPAP. Likely related to combination of CHF and pneumonia. ABG with respiratory alkalosis # Congestive heart failure echo with moderate aortic valve sclerosis with mild stenosis, [id number] MR /TR mild pulmonary hypertension, EF 60-65%. cardiology on board. Diuresis with 40 mg IV Lasix twice daily. BNP at 4240 # Non ST-elevation [place] troponin peaking at 1.7 on Lovenox. No active chest pain no acute changes in the EKG. Could be from underlying CHF/pneumonia further workup per Cardiology # Bilateral pneumonia continue on ceftriaxone and azithromycin. Rapid swab for COVID negative sent for COVID PCR await that continue on airborne precautions for possible COVID. She has been vaccinated with Pelon & Pelon vaccine several months ago. # Hypomagnesemia replace # Bilateral pleural effusion Status post left thoracentesis with removal of 700 mL of clear [place] colored fluid. Pleural fluid analysis pending ?hemorrhagic / traumatic tap. Pleural fluid Gram stain with moderate WBC continue antibiotic. Will continue to wait for further pleural fluid analysis # DVT prophylaxis full-dose Lovenox # Abnormal CT scan showing bilateral chronic pyelonephritis greater on the left side urinalysis here is negative # Do not resuscitate Subjective Date/time seen: 07/12/21 13:48 Interval history: Feeling much better today. She has been off CPAP. She has been on 4 L nasal cannula and has been remained stable. Some cough denies shortness of breath no chest pain Review of Systems Review of Systems: All systems reviewed & are unremarkable except as noted in HPI and below Exam Narrative: General: Frail, elderly, no acute distress on 4 L nasal cannula HEENT: Head is normocephalic atraumatic Respiratory: clear to auscultation bilaterallyno accessory muscle use Cardiovascular: Regular rate, regular rhythm, 2+ bilateral radial pedal pulses, no JVD Gastrointestinal: Soft, nontender, nondistended, positive bowel sounds, no mayco hepatosplenomegaly Skin: Generalized pallor, non jaundice Musculoskeletal: No clubbing, no cyanosis, no edema Neurological: Alert and oriented x3, speech is clear, no facial asymmetry, no localizing neurologic deficits noted on limited exam Psychiatric: Pleasant and cooperative Objective Data Vital Signs Vital Signs: Vital Signs - 24 hr 07/11/21 15:49 07/11/21 16:00 07/11/21 17:42 Temperature 98.1 F Pulse Rate 74 71 Respiratory Rate 16 Blood Pressure 132/92 H Pulse Oximetry 94 100 07/11/21 20:00 07/11/21 21:37 07/11/21 22:00 Temperature 97.3 F L Pulse Rate 76 89 75 Respiratory Rate 16 Blood Pressure 122/56 L Pulse Oximetry 98 07/11/21 23:30 07/11/21 23:47 07/12/21 00:00 Temperature 97.2 F L Pulse Rate 69 75 Respiratory Rate 26 H 12 Blood Pressure 132/66 Pulse Oximetry 94 99 100 07/12/21 02:00 07/12/21 04:00 07/12/21 06:00 Temperature 97.5 F L Pulse Rate 71 75 67 Respiratory Rate 18 Blood Pressure 141/67 H Pulse Oximetry 96 07/12/21 07:50 07/12/21 08:00 07/12/21 08:40 Temperature 98.4 F Pulse Rate 66 71 Respiratory Rate 14 Bl
--- NOTE | 2021-07-12 19:50 | ECHO_ITS ---
Patient Info Name: Sharri Ramirez Age: 85 years : 1935 Gender: Female Ht: 64 in Wt: 117 lbs BSA: 1.55 m2 HR: 104 bpm BP: 131 / 87 mmHg Exam Date: 07/12/2021 9:39 AM Exam Location: [facility] Patient Status: Inpatient Admit Date: 07/10/2021 Staff Ordering Physician: Radha Basilio DO [facility] Lab Technician: Jason Portillo RDCS, RT Attending Provider: Benson Izquierdo MD Referring Physician: Praful FENG; Exam Type: CA echo doppler color flow Study Info Indications I50.9 - Heart failure, unspecified Complete two-dimensional, color flow and Doppler transthoracic echocardiogram is performed. Strain analysis performed. Summary 1. Complete two-dimensional, color flow and Doppler transthoracic echocardiogram is performed. 2. Left ventricular chamber dimension is normal. 3. Ventricular septum is moderately sigmoid shaped. No LVOT obstruction. 4. Left ventricular systolic function is normal, estimated at 60-65%. 5. There is mildly increased left ventricular wall thickness. 6. The left ventricular diastolic function is abnormal. 7. E/e '17 is elevated. 8. Global longitudinal strain is abnormal at -12.5%. 9. Left atrial chamber dimension is severely enlarged. 10. There is moderate aortic valve sclerosis. 11. There is mild aortic valve stenosis with a peak velocity of 198 cm/s, mean gradient of 8 mmHg, and aortic valve area of 1.7 cm2. 12. There is trace aortic valve regurgitation. 13. The mitral valve has moderately calcified annulus. 14. There is mild to moderate mitral valve regurgitation. 15. There is mild to moderate tricuspid valve regurgitation. 16. Mild pulmonary hypertension, estimated pulmonary arterial systolic pressure is 43 mmHg. Left Ventricle E/e '17 is elevated. Global longitudinal strain is abnormal at -12.5%. Ventricular septum is moderately sigmoid shaped. No LVOT obstruction. Left ventricular chamber dimension is normal. Left ventricular systolic function is normal, estimated at 60-65%. There is mildly increased left ventricular wall thickness. The left ventricular diastolic function is abnormal. Right Ventricle Right ventricular systolic function is normal and with normal TAPSE 1.8 cm.. Right ventricular chamber dimension is normal. Left Atria Left atrial chamber dimension is severely enlarged. Right Atria Right atrial chamber dimension is normal. Aortic Valve The aortic valve is trileaflet. There is moderate aortic valve sclerosis. There is mild aortic valve stenosis with a peak velocity of 198 cm/s, mean gradient of 8 mmHg, and aortic valve area of 1.7 cm2. There is trace aortic valve regurgitation. Pulmonic Valve There is no pulmonic regurgitation. Mitral Valve The mitral valve has moderately calcified annulus. There is no mitral valve stenosis. There is mild to moderate mitral valve regurgitation. Tricuspid Valve There is mild to moderate tricuspid valve regurgitation. Mild pulmonary hypertension, estimated pulmonary arterial systolic pressure is 43 mmHg. Pericardium/Pleural There is no pericardial effusion. Inferior Vena Cava Normal inferior vena cava with >50% collapse upon inspiration consistent with normal right atrial pressure, 5 mmHg. Aorta The aortic root size at the sinus of Valsalva is normal. Left Ventricular Outflow Tract Name Value Normal
[2021-07-13] VITALS (18 sets, daily range): BP systolic 109–144; BP diastolic 52–65; PULSE 55–70; RESP 16–20; TEMP 35.7–37; O2SAT 94–99
[2021-07-13 05:02] LABS: Basophils Percent Auto 0.6 % (0.2-1.2); Eosinophils Absolute Auto 0.2 K/mm3 (0-0.3); Eosinophils Percent Auto 3.8 % (0-4.4); Hematocrit 38.2 % (37.0-47.0); Hemoglobin 12.6 g/dL (12.0-15.0); Immature Granulocyte Absolute 0.01 K/mm3 (0.00-0.031); Immature Granulocyte Percent A 0.2 % (0-0.5); Lymphocytes Absolute Auto 0.73 K/mm3 (0.9-3.2); Lymphocytes Percent Auto 14.5 % (18.3-44.2); Mean Corpuscular Hemoglobin 28.6 pg (26-34); Mean Corpuscular Volume 86.8 fl (80-100); Mean Platelet Volume 11.3 fl (7.4-10.4); Monocytes Absolute Auto 0.9 K/mm3 (0.1-0.6); Monocytes Percent Auto 17.9 % (2.6-8.5); Neutrophils Absolute Auto 3.2 K/mm3 (1.3-6.7); Platelet Count Result 194 k/mm3 (150-375); Red Cell Distribution Width 12.5 % (11.5-14.5)
[2021-07-13 05:23] LABS: Anion Gap 6 mmol/L (8-16); Blood Urea Nitrogen 25 mg/dL (7-17); Calcium 9.1 mg/dL (8.4-10.2); Carbon Dioxide 30 mmol/L (22-30); Chloride 98 mmol/L (98-107); Estimated CRCL calculation 32 ml/min; Estimated Glomerular Filt Rate 53; Glucose 91 mg/dL (65-110); Magnesium 1.8 mg/dL (1.6-2.3); Potassium 3.4 mmol/L (3.4-5.0); Sodium 134 mmol/L (137-145)
--- NOTE | 2021-07-13 07:30 | PM.PNCARD ---
Progress Note: A&P Assessment and Plan (1) Elevated troponin: Code(s): R77.8 - Other specified abnormalities of plasma proteins Status: Acute Assessment and Plan: Troponin trending up and peaked at 1.7. Could be due to pneumonia and CHF. Doubt ACS. On Lovenox, aspirin. Stop Diltiazem. On Metoprolol Tartate 50 mg BID. Change Lovenox to DVT prophylaxis dose. Echo shows EF 65-70%, diastolic dysfunction (E/e' 17), mild , mild-mod MR/TR, mild pulm hypertension. (2) Pneumonia: Qualifiers: Laterality: bilateral Lung location: lower lobe of lung Pneumonia type: due to unspecified organism Qualified Code(s): J18.9 - Pneumonia, unspecified organism Code(s): J18.9 - Pneumonia, unspecified organism Status: Acute Assessment and Plan: On antibiotics and managed per hospitalist. Covid status pending. (3) Acute respiratory failure with hypoxia: Code(s): J96.01 - Acute respiratory failure with hypoxia Status: Acute Assessment and Plan: Due to large pleural effusions, diagnostic and therapeutic thoracentesis was done on left lung. (4) Hypertension: Code(s): I10 - Essential (primary) hypertension Status: Acute Assessment and Plan: Stable. (5) Dyslipidemia: Code(s): E78.5 - Hyperlipidemia, unspecified Status: Acute Assessment and Plan: On Atorvastatin. (6) Acute on chronic diastolic heart failure: Code(s): I50.33 - Acute on chronic diastolic (congestive) heart failure Status: Acute Assessment and Plan: Diuresed with Lasix 40 mg IV BID and Spironolactone. Appears euvolemic clinically. Repeat CXR today to assess pleural effusion. If minimal, then would change Lasix IV to PO. Subjective Date/time seen: 07/13/21 07:30 Denies chest pain or sob. Exam Const: General: cooperative, healthy appearing and comfortable Resp: Auscultation: no crackles, no rales, no rhonchi, no wheezes and diminished lung sounds Cardio: Jugular venous distension: no JVD Rate: regular rate Rhythm: regular rhythm Heart sounds: no murmurs Peripheral pulses: dorsalis pedis present GI: GI Palp: No abdominal tenderness and Yes Soft to palpation Neuro: General: oriented to person, oriented to place and oriented to time Extrem: Right lower extremity: no edema Left lower extremity: no edema Objective Data Vital Signs Vital Signs: Vital Signs - 24 hr 07/12/21 07:50 07/12/21 08:00 07/12/21 08:40 Temperature 98.4 F Pulse Rate 66 71 Respiratory Rate 14 Blood Pressure 134/58 L Pulse Oximetry 93 93 07/12/21 08:42 07/12/21 10:00 07/12/21 11:30 Temperature 98.6 F Pulse Rate 77 64 65 Respiratory Rate 16 Blood Pressure 103/89 Pulse Oximetry 94 07/12/21 12:00 07/12/21 12:54 07/12/21 12:55 Temperature Pulse Rate 66 Respiratory Rate Blood Pressure Pulse Oximetry 93 96 07/12/21 14:00 07/12/21 15:59 07/12/21 16:00 Temperature 98 F Pulse Rate 66 59 L 63 Respiratory Rate 14 Blood Pressure 133/58 L Pulse Oximetry 95 07/12/21 16:25 07/12/21 16:37 07/12/21 18:00 Temperature Pulse Rate 64 Respiratory Rate Blood Pressure Pulse Oximetry 97 95 07/12/21 20:00 07/12/21 20:05 07/12/21 22:00 Temperature 97.6 F Pulse Rate 69 67 66 Respiratory Rate 18 Blood Pressure 116/54 L Pulse Oximetry 97 07/12/21 22:45 07/12/21 22:46 07/12/21 23:53 Temperature 97.8 F Pulse Rate 64 60 Respiratory Rate 16 Blood Pressure 108/48 L Pulse Oximetry 98 97 97 07/13/21 00:00 07/13/21 02:00 07/13/21 04:00 Temperature 98.2 F Pulse Rate 59 L 56 L 63 Respiratory Rate 16 Blood Pressure 137/63 Pulse Oximetry 99 97 07/13/21 06:00 Temperature Pulse Rate 59 L Respiratory Rate Blood Pressure Pulse Oximetry Intake/Output Intake/Output: Intake & Output 07/10/21 07/11/21 07/12/21 07/13/21 23:59 23:59 23:59 23:59 Intake Total 1050 1140
[2021-07-13] MEDS: METOPROLOL TARTRATE 50 MG TAB PO ×2 (10:26→20:15)
[2021-07-13] MEDS: SPIRONOLACTONE 25 MG TABLET PO (10:26)
[2021-07-13] MEDS: ASPIRIN 81 MG CHEWABLE TABLET PO (10:27)
[2021-07-13] MEDS: CITALOPRAM HYDROBROMIDE 20 MG TABLET PO (10:27)
[2021-07-13] MEDS: ENOXAPARIN 40 MG/0.4 ML SYRINGE SUB-Q (10:27)
[2021-07-13] MEDS: FAMOTIDINE 20 MG/2 ML VIAL IV PUSH ×2 (10:27→20:15)
[2021-07-13] MEDS: ATORVASTATIN 20 MG TABLET PO (10:27)
[2021-07-13] MEDS: POTASSIUM CHLORIDE 20 MEQ TABLET 40 MEQ PO (10:32)
--- NOTE | 2021-07-13 12:09 | PM.IMPN ---
Progress Note: A&P Assessment and Plan (1) Acute respiratory failure with hypoxia: Code(s): J96.01 - Acute respiratory failure with hypoxia Status: Acute (2) Elevated troponin: Code(s): R77.8 - Other specified abnormalities of plasma proteins Status: Acute (3) Pneumonia: Qualifiers: Laterality: bilateral Lung location: lower lobe of lung Pneumonia type: due to unspecified organism Qualified Code(s): J18.9 - Pneumonia, unspecified organism Code(s): J18.9 - Pneumonia, unspecified organism Status: Acute (4) Acute respiratory alkalosis: Code(s): E87.3 - Alkalosis Status: Acute Additional Plan # Acute hypoxic respiratory failure on high-flow oxygen via nasal cannula need to put on CPAP. Likely related to combination of CHF and pneumonia. ABG with respiratory alkalosis # Congestive heart failure echo with moderate aortic valve sclerosis with mild stenosis, [id number] MR /TR mild pulmonary hypertension, EF 60-65%. cardiology on board. Diuresis with 40 mg IV Lasix twice daily. # Non ST-elevation MO troponin peaking at 1.7 on Lovenox. No active chest pain no acute changes in the EKG. Could be from underlying CHF/pneumonia further workup per Cardiology # Bilateral pneumonia continue on ceftriaxone and azithromycin. negative COVID. She has been vaccinated with Pelon & Pelon vaccine several months ago. # Hypomagnesemia and hypokalemia replaced # Bilateral pleural effusion Status post left thoracentesis with removal of 700 mL of clear kalpana colored fluid. Pleural fluid analysis pending ?hemorrhagic / traumatic tap. Pleural fluid Gram stain negative with moderate WBC continue antibiotic. Culture negative. # DVT prophylaxis full-dose Lovenox # Abnormal CT scan showing bilateral chronic pyelonephritis greater on the left side urinalysis here is negative # Do not resuscitate status Subjective Date/time seen: 07/13/21 12:09 Feels her breathing is improved. She is currently on 1 L by nasal cannula. Hemodynamically stable. Afebrile. No nausea or vomiting. No chest pain. Reports her cough is improved as well. Review of Systems Review of Systems: All systems reviewed & are unremarkable except as noted in HPI and below Exam Narrative: Gen: Alert, NAD Abd: Soft, NT, ND Heart: RRR Lungs: CTAB Ext: Trace lower extremity edema Objective Data Vital Signs Vital Signs: Vital Signs - 24 hr 07/12/21 12:54 07/12/21 12:55 07/12/21 14:00 Temperature Pulse Rate 66 Respiratory Rate Blood Pressure Pulse Oximetry 93 96 07/12/21 15:59 07/12/21 16:00 07/12/21 16:25 Temperature 98 F Pulse Rate 59 L 63 Respiratory Rate 14 Blood Pressure 133/58 L Pulse Oximetry 95 97 07/12/21 16:37 07/12/21 18:00 07/12/21 20:00 Temperature 97.6 F Pulse Rate 64 69 Respiratory Rate 18 Blood Pressure 116/54 L Pulse Oximetry 95 97 07/12/21 20:05 07/12/21 22:00 07/12/21 22:45 Temperature Pulse Rate 67 66 64 Respiratory Rate Blood Pressure Pulse Oximetry 98 07/12/21 22:46 07/12/21 23:53 07/13/21 00:00 Temperature 97.8 F Pulse Rate 60 59 L Respiratory Rate 16 Blood Pressure 108/48 L Pulse Oximetry 97 97 99 07/13/21 02:00 07/13/21 04:00 07/13/21 06:00 Temperature 98.2 F Pulse Rate 56 L 63 59 L Respiratory Rate 16 Blood Pressure 137/63 Pulse Oximetry 97 07/13/21 08:00 07/13/21 09:00 07/13/21 10:26 Temperature 98.6 F Pulse Rate 59 L 59 L 65 Respiratory Rate 20 Blood Pressure 144/58 H Pulse Oximetry 99 Intake/Output Intake/Output: Intake & Output 07/10/21 07/11/21 07/12/21 07/13/21 23:59 23:59 23:59 23:59 Intake Total 1050 1140 1540 490 Output Total 2900 900 Balance 1050 -1760 1540 -410 Meds/Results Medications: Active Medications Generic Name Dose Route Start Last Admin Trade Name Freq PRN Reason Stop Dose Admin Acetaminophen 650 mg 07/10/21 18:55
[2021-07-13] MEDS: ACETAMINOPHEN 325 MG TABLET 650 MG PO (21:04)
--- NOTE | 2021-07-13 21:07 | PC.NURSE ---
This patient, Sharri Ramirez, was transferred to room 342 on 07/13/21 at 2050. Personal belongings sent with patient. Report given to ZAKIYA Adam. Appropriate documentation sent with patient.
[2021-07-14 06:02] VITALS: BP 142/67; PULSE 65; RESP 16; TEMP 36; O2SAT 97
[2021-07-14 08:04] VITALS: PULSE 63
[2021-07-14] MEDS: CITALOPRAM HYDROBROMIDE 20 MG TABLET PO (08:04)
[2021-07-14] MEDS: METOPROLOL TARTRATE 50 MG TAB PO (08:04)
[2021-07-14] MEDS: ENOXAPARIN 40 MG/0.4 ML SYRINGE SUB-Q (08:04)
[2021-07-14] MEDS: ASPIRIN 81 MG CHEWABLE TABLET PO (08:04)
[2021-07-14] MEDS: SPIRONOLACTONE 25 MG TABLET PO (08:04)
[2021-07-14] MEDS: FAMOTIDINE 20 MG/2 ML VIAL IV PUSH (08:04)
[2021-07-14] MEDS: FUROSEMIDE 40 MG TABLET PO (08:04)
[2021-07-14] MEDS: ATORVASTATIN 20 MG TABLET PO (08:04)
--- NOTE | 2021-07-14 13:40 | PM.DS ---
DS: Admitting Diagnosis Admitting Diagnosis Abdominal pain Shortness of breath DS: Discharge Diagnosis Discharge Diagnosis (1) Acute respiratory failure with hypoxia: Code(s): J96.01 - Acute respiratory failure with hypoxia Status: Acute (2) Elevated troponin: Code(s): R77.8 - Other specified abnormalities of plasma proteins Status: Acute (3) Pneumonia: Qualifiers: Laterality: bilateral Lung location: lower lobe of lung Pneumonia type: due to unspecified organism Qualified Code(s): J18.9 - Pneumonia, unspecified organism Code(s): J18.9 - Pneumonia, unspecified organism Status: Acute (4) Acute respiratory alkalosis: Code(s): E87.3 - Alkalosis Status: Acute DS: Summary Hospital Course Hospital Course: This is a 85-year-old woman with a past medical history of hypertension, hyperlipidemia, breast cancer, malignant melanoma, and GERD who presented to the emergency department on 07/10 with epigastric pain and shortness of breath. Her shortness of breath was ongoing for the prior 2 weeks but her epigastric pain has just started. She was noted in the emergency department to have oxygen saturation in the 70s. She was placed on 10 L of oxygen by nasal cannula which maintained her saturation in the 90s. She was admitted to the intermediate medical care unit. CT scan of her chest, abdomen, and pelvis showed cardiomegaly, moderately large bilateral pleural effusions, pulmonary edema, bilateral pulmonary infiltrates, and questionable chronic bilateral pyelonephritis left greater than right. She received pain medications and IV hydration. She received diuretics. She also received azithromycin and ceftriaxone for pneumonia. On 07/11 a thoracentesis was done, 700 mL of clear kalpana colored fluid was removed. There was a question of traumatic tap as pleural RBCs were elevated insole or wbc's. G stain did not show any organisms. Culture was negative. Echocardiogram was done and showed EF 60-65%, with mildly increased left ventricular wall thickness, noted diastolic dysfunction, left atrium was severely enlarged. Mild aortic valve stenosis. [id number] mitral regurgitation. Mild pulmonary hypertension RVSP 43. She did have elevated troponin that peaked at 1.7 then trended down. Cardiology evaluated her. This was thought to be due to pneumonia and CHF. She was initiated on anticoagulation with Lovenox. Aspirin was maintained. Metoprolol tartrate was initiated instead of diltiazem which is a home medication. She was given furosemide IV under the direction Cardiology. She responded well. Repeat chest x-ray showed resolution of her pleural effusion and minimal pulmonary edema. She was continued on oral furosemide. She tolerated this regimen well. Her shortness of breath rapidly improved. She was able to wean off oxygen and monitored closely, while working with physical therapy deemed appropriate for discharge to home with self-care. Time Spent with Patient Time attestation: Total time spent providing and/or coordinating discharge services:35 Exam Narrative: Gen: Alert, NAD Abd: Soft, NT, ND Heart: RRR Lungs: CTAB Ext: Nol lower extremity edema DS: Data Data Completed and Pending Labs on day of discharge: Labs from last 24 hours 07/13/21 07/13/21 04:50 04:50 WBC 5.0 RBC 4.40 Hgb 12.6 Hct 38.2 MCV 86.8 MCH 28.6 MCHC 33.0 RDW 12.5 Plt Count 194 MPV 11.3 H Immature Gran % (Auto) 0.2 Neut % (Auto) 63.0 Lymph % (Auto) 14.5 L [place] % (Auto) 17.9 H Eos % (Auto) 3.8 Baso % (Auto) 0.6 Lymph # (Auto) 0.73 L [place] # (Auto) 0.9 H Eos # (Auto) 0.2 Baso # (Auto) 0.0 Abs Immat Gran (auto) 0.01 Absolute Neuts (auto) 3.2 Absolute Nucleated RBC 0.0 Nucleated RBC % 0.0 Sodium 134 L Potassium 3.4 Chloride 98 Carbon Dioxide 30 Anion Gap 6 L BUN 25 H Creatinine 1.00 Estim Creat Clear Calc 32 Estimat
[2021-07-15 14:06] LABS: Glucose Pleural Fluid 103 mg/dL; LDH Pleural Fluid 96 U/L; Total Protein Pleural Fluid <3.0 g/dL
[2021-07-16 00:29] LABS: Amylase, Pleural Fluid 17 U/L
[2021-07-17 00:44] LABS: Albumin Pleural Fluid 1.4 g/dL
== END 2021-07-14 10:52 | disposition home or self-care (01) | DRG 193 ==
LOC: ANHED 19:54 → ANHIMU 19:57 → ANH3MED 07-13 21:00
PROVIDERS: Emergency Medicine; Internal Medicine; Admitting Provider Internal Medicine; Emergency Provider Emergency Medicine; PCP Internal Medicine; Visit Provider Internal Medicine Nephrology
DX: J18.9 Pneumonia, unspecified organism (principal); J96.01 Acute respiratory failure with hypoxia; I50.33 Acute on chronic diastolic (congestive) heart failure; E87.3 Alkalosis; J91.8 Pleural effusion in other conditions classified elsewhere; I11.0 Hypertensive heart disease with heart failure; I27.20 Pulmonary hypertension, unspecified; I08.0 Rheumatic disorders of both mitral and aortic valves; Z20.822 Contact with and (suspected) exposure to COVID-19; Z66 Do not resuscitate; E78.5 Hyperlipidemia, unspecified; R77.8 Other specified abnormalities of plasma proteins; E87.6 Hypokalemia; E83.42 Hypomagnesemia; K21.9 Gastro-esophageal reflux disease without esophagitis; Z79.899 Other long term (current) drug therapy; Z85.3 Personal history of malignant neoplasm of breast; Z85.820 Personal history of malignant melanoma of skin; Z98.42 Cataract extraction status, left eye; Z98.41 Cataract extraction status, right eye; Z96.1 Presence of intraocular lens
CPT/HCPCS: 32555; 36415; 36600; 71045; 71046; 71260; 74177; 80048; 80053; 81003; 82042; 82150; 82375; 82465; 82805; 82945; 83050; 83605; 83615; 83690; 83735; 83880; 83986; 84145; 84157; 84311; 84443; 84478; 84484; 85025; 85027; 85060; 85610; 85730; 87040; 87070; 87075; 87205; 87426; 89051; 93005; 93306; 94002; 94003; 94660; 96360; 97161; 97165; 99291; A9270; C9803; J0456; J0696; J1650; J1940; J2405; J3475; J7030; Q9967; U0003; U0005

== ENCOUNTER 2021-10-25 08:28 | Outpatient (CLI) | payer MEDICARE, SELFPAY ==
--- NOTE | ~2021-10-25 | US_ITS ---
EXAMINATION: US carotid duplex BI DATE: 10/25/2021 09:22 INDICATION: Transient ischemic attack. TECHNIQUE: Grayscale, color Doppler, and pulsed Doppler images of the cervical carotid arteries were obtained. The degree of vessel stenosis is placed in one of the following categories: normal, <50%, 5 0-69%, >=70% but less than near-occlusion, near-occlusion, or total occlusion. Note that percent sten osis relative to normal distal artery lumen diameter is indirectly measured from velocity measurement s as described by Baron, et al. Radiology 2003; 229:340-346. COMPARISON: Ultrasound 05/31/2009 FINDINGS: RIGHT: The right common carotid artery (CCA) peak systolic velocity (PSV) is 59 cm/s. The right internal car otid artery (ICA) PSV is 100 cm/s. The right ICA end-diastolic velocity (EDV) is 25 cm/s. The right I CA/CCA PSV ratio is 1.1. Grayscale and color Doppler images yield an estimate of <50% diameter reduct ion from plaque in the ICA. There is antegrade flow in the right vertebral artery. LEFT: The left CCA PSV is 66 cm/s. The left ICA PSV is 138 cm/s. The left ICA EDV is 26 cm/s. The left ICA/ CCA PSV ratio is 2.0. Grayscale and color Doppler images yield an estimate of >=50% diameter reductio n from plaque in the ICA. There is antegrade flow in the left vertebral artery. IMPRESSION: 1. <50% stenosis in the right internal carotid artery. 2. 50-69% stenosis in the left internal carotid artery. Reviewed, dictated and finalized at location A. Y MACHINE OPERATOR
--- NOTE | ~2021-10-25 | CT_ITS ---
EXAMINATION: CT brain wo con EXAM DATE: 10/25/2021 08:46 INDICATION: TIA transient ischemic attack. Episode last week. TECHNIQUE: Spiral CT of the head was performed without contrast. Axial, coronal and sagittal images were reviewed. The dose-length product (DLP) for this examination was 605.33 mGy-cm. The exposure w as tailored according to patient size, and iterative reconstruction (ASIR) was used as additional dos e reduction technique. Comparison is made to prior examination from 03/14/2015. FINDINGS: There is no acute intraparenchymal hemorrhage. No evidence of intraparenchymal brain mass lesion. No evidence of acute infarction. Please note that initial head CT has limited sensitivity f or small or acute infarctions. There is moderate periventricular and subcortical hypodensity, nonspec ific but probably related to small vessel ischemic disease. There is moderate prominence of the sul ci and ventricles related to cerebral atrophy. There is intracranial carotid arteriosclerosis. The re are no extra-axial collections. There is no mass effect or midline shift. The orbits are unremar kable. Soft tissue is unremarkable. The visualized sinuses and mastoid air cells are well aerated. IMPRESSION: 1. No acute intracranial findings. 2. Chronic age related findings. Reviewed, dictated and finalized at location A. ING FLOOR WORKER
== END 2021-10-25 08:29 | disposition home or self-care (01) ==
LOC: ANHIMG 08:29
PROVIDERS: PCP Internal Medicine; Visit Provider Internal Medicine
DX: I65.23 Occlusion and stenosis of bilateral carotid arteries (principal)
CPT/HCPCS: 70450; 93880

== ENCOUNTER 2024-05-16 18:03 | Observation (INO) | payer MEDICARE, SELFPAY ==
--- NOTE | ~2024-05-16 | CT_ITS ---
EXAMINATION: CTA brain carotid DATE: 05/16/2024 22:08 INDICATION: tia TECHNIQUE: Computed tomographic angiography (CTA) of the head was performed without and with 95 mL Om nipaque-350 intravenous contrast. CTA of the neck was performed with intravenous contrast. Automated exposure control and iterative reconstruction technique were employed. The dose-length product was 15 84.37 mGy-cm. Maximum intensity projection and volume rendered 3D-reconstructions were created by the technologist on a separate workstation. COMPARISON: CT brain 10/25/2021. FINDINGS: CT BRAIN: No acute large vessel infarct, intracranial hemorrhage, mass, or hydrocephalus. Moderate atrophy and chronic white matter change. Atherosclerotic intracranial calcification. Bilateral lens replacements. Left basal ganglia calcification. CTA HEAD: No large vessel occlusion, aneurysm, high flow vascular malformation, nidus or extravasation. Symmetr ic parenchymal enhancement. Patent cerebral veins. Persistent origin of the right SHOE SEWING MACHINE OPERATOR AND TENDER, a normal variant. CTA NECK: Aortic arch and proximal great vessels: Normal arch anatomy. Moderate calcified and heavy noncalcifie d atherosclerotic aortic plaque. Irregular ulcerative appearing pathology of the noncalcified plaque in aortic arch, that do not extend significantly into or beyond the aortic wall. Mild calcified steno sis at the origin of the right common carotid artery. Moderate noncalcified stenosis at the origin of the left common carotid artery. Right common carotid, carotid bifurcation, and internal carotid artery: Calcified plaque at the bifur cation.There is 11% stenosis of the proximal right internal carotid artery relative to normal distal artery lumen diameter (NASCET criteria). Left common carotid, carotid bifurcation, and internal carotid artery: Calcified plaque at the bifurc ation.There is 61% stenosis of the proximal left internal carotid artery relative to normal distal ar maye lumen diameter (NASCET criteria). Vertebral arteries: No significant plaque or stenosis. Calcified plaques at the origins of the bilate ral vertebral arteries without severe stenosis. The right vertebral artery is dominant. Other findings: Dilated central pulmonary arteries as can be seen with pulmonary arterial hypertensio n. Mild ascending aortic ectasia measuring up to 4.0 cm. Heterogeneous thyroid with multiple calcific ations and nodules measuring up to 1.6 cm in the right thyroid lobe. IMPRESSION: No acute intracranial process. No large vessel intracranial occlusion, high-grade intracranial stenosis, or aneurysm. No carotid or vertebral artery occlusion, dissection, or significant stenosis. 61% stenosis of the proximal left internal carotid artery. Mild ascending aortic ectasia. Heavy calcified and ulcerative appearing noncalcified atherosclerotic plaque in the thoracic aorta. 1.6 cm right thyroid nodule, consider nonemergent outpatient thyroid ultrasound for further character ization, depending on relevant comorbidities and patient wishes. Reviewed, dictated and finalized at location K. IMPRESSION: No acute intracranial process. No large vessel intracranial occlusion, high-grade intracranial stenosis, or an eurysm. No carotid or vertebral artery occlusion, dissection, or significant stenosis. 61% stenosis of the proximal left internal carotid artery. Mild ascending aortic ectasia. Heavy calcified and ulcerative appearing noncalc ified atherosclerotic plaque in the thoracic aorta. 1.6 cm right thyroid nodule, consider nonemergent outpatient thyroid ultrasound for further characterization, depending on relevant comorbidities and patient wishes.
--- NOTE | ~2024-05-16 | MR_ITS ---
MR brain/brain stem wo/w con Ordering provider: Lisa Christianson MD History: 88 years Female with . TIA . Comparison: CT head performed yesterday. Technique: MRI brain was performed with and without contrast. 80 mL of MultiHance is given IV. FINDINGS: BONES: Normal. CRANIOCERVICAL JUNCTION: normal. PITUITARY: Partial empty sella MAJOR INTRACRANIAL VESSELS: Normal flow void. OPTIC NERVES AND CRANIAL NERVES VII AND VIII COMPLEXES: Grossly normal. BRAIN PARENCHYMA AND CSF SPACES: Moderate nonspecific T2 white matter hyperintensities are seen in a bilateral periventricular and deep white matter distribution which are likely related to chronic isc hemic small vessel disease. Moderate diffuse cortical atrophy. The brainstem and cerebellum are [place]. No acute or chronic intracranial hemorrhage. No extra axial fluid collections. Diffusion weighted and ADC mapping images reveal no recent ischemia. No midline shift or mass effect. No abnormal contra st enhancement. PARANASAL SINUSES: Normal. MASTOIDS: Normal SUPERFICIAL/SURROUNDING SOFT TISSUES: Normal. IMPRESSION: 1. Mild to moderate brain atrophy with deep white matter ischemic changes. 2. No abnormal enhancement. Reviewed, dictated and finalized at location A.
[2024-05-16 18:27] VITALS: BP 160/80; PULSE 69; RESP 18; TEMP 36.4; O2SAT 100
--- NOTE | 2024-05-16 18:36 | ECG_ITS ---
Test Date: 2024-05-16 18:49:59 Measurements Intervals Exchange Rate: 77 P: 0 IN: 0 QRS: 19 QRSD: 98 T: -15 QT: 371 QTc: 421 Interpretive Statements ATRIAL FIBRILLATION VENTRICULAR PREMATURE COMPLEX NONSPECIFIC T-WAVE ABNORMALITY- INFERIOR LEADS BASELINE ARTIFACT- I, II, III, AVR, AVL, AVF, V1-V6 ABNORMAL ECG No previous ECG available for comparison Electronically Signed On 05-16-2024 20:30:30 CDT by Alden Mason D.O.
[2024-05-16 18:58] LABS: Basophils Percent Auto 0.5 % (0.2-1.2); Eosinophils Absolute Auto 0.1 K/mm3 (0-0.3); Eosinophils Percent Auto 3.1 % (0-4.4); Hematocrit 43.5 % (37.0-47.0); Hemoglobin 14.5 g/dL (12.0-15.0); Immature Granulocyte Absolute 0.01 K/mm3 (0.00-0.031); Immature Granulocyte Percent A 0.2 % (0-0.5); Immature Platelet Fraction Pct 5.8 % (0.9-11.2); Lymphocytes Absolute Auto 0.78 K/mm3 (0.9-3.2); Lymphocytes Percent Auto 18.7 % (18.3-44.2); Mean Corpuscular HGB Conc 33.3 g/dl (32-36); Mean Corpuscular Volume 93.1 fl (80-100); Monocytes Absolute Auto 0.6 K/mm3 (0.1-0.6); Monocytes Percent Auto 13.4 % (2.6-8.5); Neutrophils Absolute Auto 2.7 K/mm3 (1.3-6.7); Neutrophils Percent Auto 64.1 % (45.5-73.1); Platelet Count Result 130 k/mm3 (150-375); Red Blood Count 4.67 M/mm3 (4.2-5.4); Red Cell Distribution Width 13.4 % (11.5-14.5); White Blood Count 4.2 K/mm3 (4.5-10.0)
[2024-05-16 19:06] LABS: Alanine Aminotransferase 21 U/L (6-35); Albumin Level 4.4 g/dL (3.5-5.1); Alkaline Phosphatase 59 U/L (38-126); Anion Gap 9 mmol/L (4-12); Appearance Urine Clear (Clear); Aspartate Amino Transferase 33 U/L (14-36); Bacteria Urine None Seen /hpf; Bilirubin Urine Negative (Negative); Bilirubin,Total 0.9 mg/dL (0.2-1.3); Blood Urea Nitrogen 18 mg/dL (7-17); Blood Urine Negative (Negative); Calcium 9.6 mg/dL (8.4-10.2); Carbon Dioxide 29 mmol/L (22-30); Chloride 101 mmol/L (98-107); Color Urine Yellow (Yellow); Estimated CRCL calculation 24 ml/min; Estimated Glomerular Filt Rate 52; Glucose 114 mg/dL (65-110); Glucose Urine UA Negative (Negative); Ketones Urine Negative (Negative); Leukocyte Esterase Ur Trace LEU/UL (Negative); Nitrate Urine Negative (Negative); Non Pathogenic Casts 0-2; Potassium 3.8 mmol/L (3.4-5.0); Protein Urine Negative (Negative); RBC Urine 0-2 /hpf (0-2); Sodium 139 mmol/L (137-145); Specific Grav Ur 1.009 (1.001-1.035); Squamous Epithelial Cell Urine None Seen /hpf (Few); Urobilinogen Urine 0.2 mg/dL (<2.0); WBC Urine 0-5 /hpf (0-3)
[2024-05-16 19:07] LABS: INR 1.3; Partial Thromboplastin Time 29.2 Seconds (22.3-36.8); Prothrombin Time 16.4 Seconds (11.1-14.7)
[2024-05-16 19:19] LABS: Add Urine Microscopic? YES
--- NOTE | 2024-05-16 20:56 | ED.AMS ---
HPI - Altered Mental Status General Chief Complaint: Altered Mental Status Stated Complaint: weakness, AMS Time Seen by Provider: 05/16/24 20:22 History of Present Illness HPI narrative: Patient is an 88-year-old female with history of prior TIA, AFib, anticoagulated on Eliquis here after an episode of confusion. Patient states that around 4:00 this afternoon she was lying on the couch and had a strange feeling. She notes that she tried to move and was not able to and she felt somewhat spaced out. She denies any chest pain or shortness of breath during this episode. She denies any difficulty talking during this episode. Family came home and saw her and noted that it seemed like she was delirious at that time and was speaking nonsensically. She has since returned to her baseline. They think that symptoms lasted for about 30 minutes and resolved on their own. She notes that her last TIA was approximately 12 years ago. She is currently complaining of a mild frontal sinus headache which began today. She has a chronic runny nose which is unchanged from baseline. Denies any fever chills. She does have a sick contact a friend she has been spending time with his recently been sick. She has been adherent to her medications including her Eliquis and statin. Related Data Home Medications Medication Instructions Recorded Confirmed atorvastatin 20 mg tablet 20 mg PO DAILY 07/10/21 07/10/21 calcium carbonate 500 mg PO PRN PRN Heartburn 07/10/21 07/10/21 citalopram 20 mg tablet 20 mg PO DAILY 07/10/21 07/10/21 spironolactone 25 mg tablet 25 mg PO DAILY 07/10/21 07/10/21 Allergies Allergy/AdvReac Type Severity Reaction Status Date / Time adhesive tape Allergy Unknown Unknown Verified 05/16/24 20:47 benazepril Allergy Unknown Unknown Verified 05/16/24 20:47 irbesartan Allergy Unknown Unknown Verified 05/16/24 20:47 Review of Systems Review of Systems: All systems reviewed & are unremarkable except as noted in HPI and below PMFSH Past Medical History Medical History (Updated 05/17/24 @ 03:59 by Lisa Christianson MD) Anxiety Breast cancer Depression Dermatomyositis Esophageal dilatation (~1999) Essential hypertension GERD (gastroesophageal reflux disease) Hyperlipidemia Malignant melanoma (~2009) Excised from right arm Migraines Surgical History Surgical History (Updated 07/10/21 @ 20:24 by Radha Basilio DO) History of classical section 6 para 7 History of colonoscopy with polypectomy History of hip surgery Right hip surgery at 9 years old at which time she required a blood transfusion History of partial mastectomy of right breast (~2010) Status post cataract extraction of both eyes with insertion of intraocular lens Status post cholecystectomy Open cholecystectomy Family History Family History Sibling Acute myocardial infarction, Onset Age: 70 Mother Old age, Onset Age: 95 Father Parkinsons disease, Onset Age: 80 Sibling Acute myocardial infarction, Onset Age: 49 Tobacco abuse disorder Daughter Breast cancer Other Family history of malignant neoplasm of breast in first degree relative Social History Social History (Updated 07/10/21 @ 22:19 by Radha Basilio DO) Social History: She is . She lives alone in a town home. She used to work as a medical doctor md/medical director and housekeeping. She has 7 children 6 sons and 1 daughter. Code status: DNR/DNI per patient request Smoking status: Never smoker Alcohol intake: never Substance use: never Substance use type: does not use Do You Feel Safe in your Home?: Yes Lack of Transportation: No Lack of Food: Never True Current Housing: I Have Housing Concerned About Future Housing: No Difficulty Paying Gas/Electric Bills: YES Difficulty Paying for Meds: No Currently Unemployed: No Education: Hig
[2024-05-16 21:55] LABS: Troponin I < 0.012 ng/mL (0.000-0.034)
[2024-05-16 22:23] LABS: Influenza A QL RT-PCR Negative (Negative); Influenza B QL RT-PCR Negative (Negative); RSV RNA, RT-PCR Negative (Negative); SARS-CoV-2 RNA PCR Negative (Negative)
[2024-05-17] VITALS (18 sets, daily range): BP systolic 131–177; BP diastolic 65–96; PULSE 63–98; RESP 16–100; TEMP 36.2–37; O2SAT 96–100; BMI 16.1
--- NOTE | 2024-05-17 | ECHO_ITS ---
Patient Info Name: Sharri Ramirez Age: 88 years : 1935 Gender: Female Ht: 63 in Wt: 91 lbs BSA: 1.34 m2 HR: 63 bpm BP: 145 / 96 mmHg Heart Rhythm: Atrial Fibrillation Technical Quality: Fair Exam Date: 05/17/2024 1:12 PM Exam Location: Echo Lab Patient Status: Outpatient Admit Date: 05/17/2024 Staff Ordering Physician: Agnes Handley PA-C Psychologist Military Personnel: Vince Franco RDCS Attending Provider: Agnes Handley PA-C Referring Physician: Ender REGAN; Exam Type: CA echo doppler w bubble study Study Info Indications - TIA Complete two-dimensional, color flow and Doppler transthoracic echocardiogram is performed with agitated saline. Contrast/Agitated Saline Contrast/Ag. Saline: Agitated Saline Amount: 14.00 ml IV Access Condition: patent with no signs of infiltration Summary 1. Left ventricular chamber dimension is normal. 2. Left ventricular systolic function is normal, estimated at 60-65%. 3. The left ventricular diastolic function is abnormal. 4. E/e' 11 is mildly elevated. 5. Atrial fibrillation. 6. Left atrial chamber dimension is moderately enlarged. 7. Right atrial chamber dimension is mildly enlarged. 8. There is moderate aortic valve sclerosis. 9. There is mild aortic valve stenosis with a peak velocity of 175 cm/s, mean gradient of 6 mmHg, and aortic valve area of 1.9 cm2. 10. There is mild to moderate aortic valve regurgitation. 11. The mitral valve has mildly thickened leaflets and severely calcified annulus. 12. There is mild to moderate mitral valve regurgitation. 13. There is moderate tricuspid valve regurgitation. 14. Mild pulmonary hypertension, estimated pulmonary arterial systolic pressure is 45 mmHg. Left Ventricle E/e' 11 is mildly elevated. Atrial fibrillation. Left ventricular chamber dimension is normal. Left ventricular systolic function is normal, estimated at 60-65%. The left ventricular diastolic function is abnormal. Right Ventricle Right ventricular systolic function is normal and with normal TAPSE 2.1 cm. Right ventricular chamber dimension is normal. Left Atria Left atrial chamber dimension is moderately enlarged. Right Atria Right atrial chamber dimension is mildly enlarged. Atrial Septum Agitated saline injection with and without valsalva maneuver opacified right side cardiac chambers without shunt to left side cardiac chambers. Intact interatrial septum visualized by 2D and agitated saline imaging. Aortic Valve The aortic valve is trileaflet. There is moderate aortic valve sclerosis. There is mild aortic valve stenosis with a peak velocity of 175 cm/s, mean gradient of 6 mmHg, and aortic valve area of 1.9 cm2. There is mild to moderate aortic valve regurgitation. Pulmonic Valve There is no pulmonic regurgitation. Mitral Valve The mitral valve has mildly thickened leaflets and severely calcified annulus. There is no mitral valve stenosis. There is mild to moderate mitral valve regurgitation. Tricuspid Valve There is moderate tricuspid valve regurgitation. Mild pulmonary hypertension, estimated pulmonary arterial systolic pressure is 45 mmHg. Pericardium/Pleural There is no pericardial effusion. Inferior Vena Cava Normal inferior vena cava with >50% collapse upon inspiration consistent with normal right atrial pressure, 5 mmHg. Aorta The aortic root size at the sinus of Valsalva is normal. Left Ventricular Outflow Tract Name
--- NOTE | 2024-05-17 00:01 | PC.NURSE ---
pt placed in gown, fresh warm blanket provided. pt reoriented to call light. no distress noted. Family educated on 8-8 visiting hours.
--- NOTE | 2024-05-17 00:51 | PC.NURSE ---
Pt moved from 21 to ed 10 at this time via wheelchair. No distress noted. pt placed in bed, on nurse monitoring and report given to ZAKIYA Salcido.
--- NOTE | 2024-05-17 03:54 | ADMGEN ---
This patient, Sharri Ramirez, was admitted to Medical Room 344-01. Patient/family oriented to hospital policies and general routines including ID bracelet, bed and alarms, visiting hours, pain management, procedures, bathroom and other care routines, personal items, smoking policy, room service/diet, and visiting hours. Information on how to activate the Rapid Response Team has been discussed. Patient/Family are encouraged to report perceived risks to care and to ask questions if they do not understand what they are told or what they should do.
--- NOTE | 2024-05-17 07:27 | PM.IMHP ---
H&P: HPI History of Present Illness Date/Time: 05/17/24 07:27 Chief Complaint: Altered mental status Narrative: 85-year-old female with past medical history of previous TIA, afib on anticoagulation, breast cancer, malignant melanoma, hypertension, hyperlipidemia presents to the hospital for altered mental status. Patient states that yesterday she felt weird throughout the day with intermittent dizziness. Then around 4:00 pm yesterday she went to get off the couch and noticed that she was unable to move. She then felt this severe frontal headache with vision changes that she describes as a shade going across her vision. She states this has been happening for 3-4 months and typically resolves with her aspirin, however due to her being unable to move she was not able to take this. She denies difficulties talking, one sided weakness, and facial droop. She notes that her family told her she was found rambling deliriously on her couch when they arrived. She states this happened for about 10 minutes before resolving. She denies chest pain, shortness of breath, palpitations, nausea/vomiting and changes in bowel/bladder. ED work up: CBC and chemistry unremarkable. LFT WNL. Troponin WNL. PT 16.4, INR 1.3, PTT 29.2. Urinalysis nonconcerning for UTI. Covid/flu/rsv negative. Head/neck CTA: No acute intracranial process. No large vessel intracranial occlusion, high-grade intracranial stenosis, or aneurysm. No carotid or vertebral artery occlusion, dissection, or significant stenosis. 61% stenosis of the proximal left internal carotid artery. Mild ascending aortic ectasia. Heavy calcified and ulcerative appearing noncalcified atherosclerotic plaque in the thoracic aorta. 1.6 cm right thyroid nodule, consider nonemergent outpatient thyroid ultrasound for further characterization, depending on relevant comorbidities and patient wishes. Review of Systems Review of Systems: All systems reviewed & are unremarkable except as noted in HPI and below PMFSH Past Medical History Medical History (Updated 05/17/24 @ 15:10 by Agnes Handley PA-C) Anxiety Breast cancer Depression Dermatomyositis Esophageal dilatation (~1999) Essential hypertension GERD (gastroesophageal reflux disease) Hyperlipidemia Malignant melanoma (~2009) Excised from right arm Migraines Surgical History Surgical History (Updated 07/10/21 @ 20:24 by Radha Basilio DO) History of classical section 6 para 7 History of colonoscopy with polypectomy History of hip surgery Right hip surgery at 9 years old at which time she required a blood transfusion History of partial mastectomy of right breast (~2010) Status post cataract extraction of both eyes with insertion of intraocular lens Status post cholecystectomy Open cholecystectomy Family History Family History Sibling Acute myocardial infarction, Onset Age: 70 Mother Old age, Onset Age: 95 Father Parkinsons disease, Onset Age: 80 Sibling Acute myocardial infarction, Onset Age: 49 Tobacco abuse disorder Daughter Breast cancer Other Family history of malignant neoplasm of breast in first degree relative Social History Social History (Updated 07/10/21 @ 22:19 by Radha Basilio DO) Social History: She is . She lives alone in a town home. She used to work as a medical staff credentialing coordinator and housekeeping. She has 7 children 6 sons and 1 daughter. Code status: DNR/DNI per patient request Smoking status: Never smoker Second hand tobacco smoke exposure: Yes Alcohol intake: never Substance use: never Substance use type: does not use Do You Feel Safe in your Home?: Yes Lack of Transportation: No Lack of Food: Never True Current Housing: I Have Housing Concerned About Future Housing: No Difficulty Paying Gas/Electric Bills: YES Difficulty Paying for Meds: No
[2024-05-17 08:17] LABS: Basophils Percent Auto 0.5 % (0.2-1.2); Eosinophils Absolute Auto 0.1 K/mm3 (0-0.3); Hematocrit 40.4 % (37.0-47.0); Hemoglobin 13.8 g/dL (12.0-15.0); Immature Granulocyte Absolute 0.01 K/mm3 (0.00-0.031); Immature Granulocyte Percent A 0.3 % (0-0.5); Immature Platelet Fraction Pct 5.9 % (0.9-11.2); Lymphocytes Absolute Auto 0.86 K/mm3 (0.9-3.2); Mean Corpuscular HGB Conc 34.2 g/dl (32-36); Mean Corpuscular Hemoglobin 31.5 pg (26-34); Mean Corpuscular Volume 92.2 fl (80-100); Mean Platelet Volume 11.4 fl (7.4-10.4); Monocytes Absolute Auto 0.7 K/mm3 (0.1-0.6); Monocytes Percent Auto 16.9 % (2.6-8.5); Neutrophils Absolute Auto 2.3 K/mm3 (1.3-6.7); Neutrophils Percent Auto 58.3 % (45.5-73.1); Platelet Count Result 120 k/mm3 (150-375); Red Blood Count 4.38 M/mm3 (4.2-5.4); Red Cell Distribution Width 13.3 % (11.5-14.5); White Blood Count 3.9 K/mm3 (4.5-10.0)
[2024-05-17 08:25] LABS: Alanine Aminotransferase 18 U/L (6-35); Albumin Level 3.9 g/dL (3.5-5.1); Alkaline Phosphatase 53 U/L (38-126); Anion Gap 7 mmol/L (4-12); Aspartate Amino Transferase 29 U/L (14-36); Bilirubin,Total 1.1 mg/dL (0.2-1.3); Blood Urea Nitrogen 15 mg/dL (7-17); Calcium 9.5 mg/dL (8.4-10.2); Carbon Dioxide 26 mmol/L (22-30); Chloride 104 mmol/L (98-107); Estimated CRCL calculation 25 ml/min; Estimated Glomerular Filt Rate 59; Glucose 87 mg/dL (65-110); Potassium 3.6 mmol/L (3.4-5.0); Sodium 137 mmol/L (137-145)
--- NOTE | 2024-05-17 08:30 | WPDNEURCNPN ---
Assessment and Plan Assessment and plan (1) Atrial fibrillation: Code(s): I48.91 - Unspecified atrial fibrillation Status: Acute (2) Transient ischemic attack: Code(s): G45.9 - Transient cerebral ischemic attack, unspecified Status: Acute (3) Stenosis of left internal carotid artery: Code(s): I65.22 - Occlusion and stenosis of left carotid artery Status: Acute (4) Thoracic aorta atherosclerosis: Code(s): I70.0 - Atherosclerosis of aorta Status: Acute Plan 1. Change in the mental status of episodic nature but she does have ongoing history of atrial fibrillation and needs to be continued on apixaban in addition to aspirin. Doppler study of the carotid with 50 to 69% stenosis in left internal carotid artery at this stage is not a surgical case and she is taking the anti-platelet medication. He does have underlying heavy calcified ulcerative appearing plaque in the thoracic aorta for that reason also he needs to be on both the medications. As for as the thyroid nodules concern for further evaluation is suggested but no other neurological intervention at this stage. Consult date: 05/17/24 HPI: Sharri Ramirez is a 88 year old female Admitted to the hospital through the emergency room for the complaints of generalized weakness along with a change in mental status in addition to history of underlying atrial fibrillation for which she is already anticoagulated and is taking Eliquis. Reportedly around 4 p.m. she was lying on the couch and had a strange sensation, she tried to move and was unable to do so she felt somewhat spaced out. She gave no history of associated chest pain, difficulties in breathing or difficulties in talking. When the family came home they found her to be delirious and talking nonsensically. Subsequently she returned to the baseline, the whole episode lasted for about 30minutes. it was also mentioned that she has had TIA about 12 years ago. Her medications included atorvastatin 20mg daily, citalopram 20mg daily, and spironolactone 25mg daily. She does have ongoing history of 1. Anxiety with depression 2. History of carcinoma of the breast 3. Malignant melanoma excised from the right upper extremity and 4. Migraines. She is never a smoker And does not drink alcohol. Her radiological investigation in the emergency Room included head neck CTA which revealed 61% stenosis of the proximal left internal carotid artery with mild ascending aorta ectasia and heavy calcified and ulcerative appearing noncalcified atherosclerotic plaque in the thoracic aorta. Also 1.6cm right thyroid nodule. Review of Systems Review of Systems: All systems reviewed & are unremarkable except as noted in HPI and below Constitutional: Constitutional: Reports snoring PMFSH Past Medical History Medical History (Updated 05/17/24 @ 12:56 by Kishan Lozano MD) Anxiety Breast cancer Depression Dermatomyositis Esophageal dilatation (~1999) Essential hypertension GERD (gastroesophageal reflux disease) Hyperlipidemia Malignant melanoma (~2009) Excised from right arm Migraines Surgical History Surgical History (Updated 07/10/21 @ 20:24 by Radha Basilio DO) History of classical section 6 para 7 History of colonoscopy with polypectomy History of hip surgery Right hip surgery at 9 years old at which time she required a blood transfusion History of partial mastectomy of right breast (~2010) Status post cataract extraction of both eyes with insertion of intraocular lens Status post cholecystectomy Open cholecystectomy Family History Family History Sibling Acute myocardial infarction, Onset Age: 70 Mother Old age, Onset Age: 95 Father Parkinsons disease, Onset Age: 80 Sibling Acute myocardial infarction, Onset Age: 49 Tobacco abuse disorder Daughter Breast
[2024-05-17] MEDS: CITALOPRAM HYDROBROMIDE 20 MG TABLET PO (10:13)
[2024-05-17] MEDS: APIXABAN 2.5 MG TABLET PO ×2 (10:13→20:22)
[2024-05-17] MEDS: FUROSEMIDE 20 MG TABLET PO (10:13)
[2024-05-17] MEDS: ATORVASTATIN 40 MG TABLET PO (10:13)
[2024-05-17] MEDS: SPIRONOLACTONE 25 MG TABLET PO (10:13)
[2024-05-17] MEDS: ASPIRIN 81 MG CHEWABLE TABLET PO (10:13)
[2024-05-17] MEDS: METOPROLOL TARTRATE 50 MG TAB PO ×2 (10:14→20:22)
--- NOTE | 2024-05-17 14:30 | PC.NURSE ---
Patient off of unit to MRI
--- NOTE | 2024-05-17 15:10 | PC.NURSE ---
Patient returned to unit from MRI
[2024-05-18] VITALS: PULSE 72
[2024-05-18 04:00] VITALS: PULSE 63
[2024-05-18 04:52] VITALS: BP 137/62; PULSE 65; RESP 16; TEMP 36.6; O2SAT 98
[2024-05-18 06:02] LABS: Basophils Percent Auto 0.5 % (0.2-1.2); Eosinophils Absolute Auto 0.1 K/mm3 (0-0.3); Eosinophils Percent Auto 3.1 % (0-4.4); Hematocrit 37.8 % (37.0-47.0); Hemoglobin 13.1 g/dL (12.0-15.0); Immature Granulocyte Absolute 0.02 K/mm3 (0.00-0.031); Immature Granulocyte Percent A 0.5 % (0-0.5); Immature Platelet Fraction Pct 6.3 % (0.9-11.2); Lymphocytes Absolute Auto 0.98 K/mm3 (0.9-3.2); Lymphocytes Percent Auto 23.3 % (18.3-44.2); Mean Corpuscular HGB Conc 34.7 g/dl (32-36); Mean Corpuscular Hemoglobin 31.3 pg (26-34); Mean Corpuscular Volume 90.4 fl (80-100); Mean Platelet Volume 11.1 fl (7.4-10.4); Monocytes Absolute Auto 0.6 K/mm3 (0.1-0.6); Neutrophils Absolute Auto 2.4 K/mm3 (1.3-6.7); Neutrophils Percent Auto 57.6 % (45.5-73.1); Platelet Count Result 118 k/mm3 (150-375); Red Blood Count 4.18 M/mm3 (4.2-5.4); Red Cell Distribution Width 13.2 % (11.5-14.5); White Blood Count 4.2 K/mm3 (4.5-10.0)
[2024-05-18 06:18] LABS: Alanine Aminotransferase 16 U/L (6-35); Albumin Level 3.6 g/dL (3.5-5.1); Alkaline Phosphatase 47 U/L (38-126); Anion Gap 6 mmol/L (4-12); Aspartate Amino Transferase 25 U/L (14-36); Bilirubin,Total 1.1 mg/dL (0.2-1.3); Blood Urea Nitrogen 17 mg/dL (7-17); Calcium 9.2 mg/dL (8.4-10.2); Carbon Dioxide 23 mmol/L (22-30); Chloride 105 mmol/L (98-107); Estimated CRCL calculation 25 ml/min; Estimated Glomerular Filt Rate 59; Glucose 92 mg/dL (65-110); Potassium 3.3 mmol/L (3.4-5.0); Sodium 134 mmol/L (137-145)
[2024-05-18 08:04] VITALS: PULSE 67
[2024-05-18 08:22] VITALS: PULSE 75
[2024-05-18] MEDS: FUROSEMIDE 20 MG TABLET PO (08:22)
[2024-05-18] MEDS: METOPROLOL TARTRATE 50 MG TAB PO (08:22)
[2024-05-18] MEDS: ATORVASTATIN 40 MG TABLET PO (08:22)
[2024-05-18] MEDS: ASPIRIN 81 MG CHEWABLE TABLET PO (08:22)
[2024-05-18] MEDS: SPIRONOLACTONE 25 MG TABLET PO (08:22)
[2024-05-18] MEDS: CITALOPRAM HYDROBROMIDE 20 MG TABLET PO (08:23)
[2024-05-18] MEDS: APIXABAN 2.5 MG TABLET PO (08:23)
--- NOTE | 2024-05-18 11:37 | PM.DS ---
DS: Admitting Diagnosis Discharge Date 05/18/2024 Admitting Diagnosis TIA DS: Discharge Diagnosis Discharge Diagnosis (1) Transient ischemic attack: Code(s): G45.9 - Transient cerebral ischemic attack, unspecified Status: Acute Assessment and Plan: - Home medications: Aspirin, Eliquis, Atorvastatin - LFT WNL - Troponin unremarkable - Head/neck CTA: 1. No acute intracranial process. 2. No large vessel intracranial occlusion, high-grade intracranial stenosis, or aneurysm. 3. No carotid or vertebral artery occlusion, dissection, or significant stenosis. 4. 61% stenosis of the proximal left internal carotid artery. 5. Mild ascending aortic ectasia. Heavy calcified and ulcerative appearing noncalcified atherosclerotic plaque in the thoracic aorta. - MRI brain obtained, pending read - Echo with bubble study obtained, pending read - Neurology consulted No neurological intervention required at this time - Monitor vital signs, daily labs and patient is a fall risk - Q4 neuro checks - PT/OT (2) Atrial fibrillation: Code(s): I48.91 - Unspecified atrial fibrillation Status: Acute Assessment and Plan: Rate controlled on home medications. - EKG: Afib - Current home medication: metoprolol and eliquis (3) Hypertension: Code(s): I10 - Essential (primary) hypertension Status: Acute Assessment and Plan: Chronic, stable on home medications. - Metoprolol 50 mg BID - Lasix 20 mg daily - Spironolactone 25 mg daily - Montior (4) Severe protein-calorie malnutrition: Code(s): E43 - Unspecified severe protein-calorie malnutrition Status: Acute Assessment and Plan: Related to inadequate protein intake with increased protein need due to chronic diseases - Supplement per nutrition Plan Disposition: Patient was discharged back to home at her baseline with no deficits. Patient refused any services at discharge. DS: Summary Hospital Course Reason for hospitalization: TIA Hospital Course: Medical Record Chief Complaint: Altered mental status Narrative: 85-year-old female with past medical history of previous TIA, afib on anticoagulation, breast cancer, malignant melanoma, hypertension, hyperlipidemia presents to the hospital for altered mental status. Patient states that yesterday she felt weird throughout the day with intermittent dizziness. Then around 4:00 pm yesterday she went to get off the couch and noticed that she was unable to move. She then felt this severe frontal headache with vision changes that she describes as a shade going across her vision. She states this has been happening for 3-4 months and typically resolves with her aspirin, however due to her being unable to move she was not able to take this. She denies difficulties talking, one sided weakness, and facial droop. She notes that her family told her she was found rambling deliriously on her couch when they arrived. She states this happened for about 10 minutes before resolving. She denies chest pain, shortness of breath, palpitations, nausea/vomiting and changes in bowel/bladder. ED work up: CBC and chemistry unremarkable. LFT WNL. Troponin WNL. PT 16.4, INR 1.3, PTT 29.2. Urinalysis nonconcerning for UTI. Covid/flu/rsv negative. Head/neck CTA: No acute intracranial process. No large vessel intracranial occlusion, high-grade intracranial stenosis, or aneurysm. No carotid or vertebral artery occlusion, dissection, or significant stenosis. 61% stenosis of the proximal left internal carotid artery. Mild ascending aortic ectasia. Heavy calcified and ulcerative appearing noncalcified atherosclerotic plaque in the thoracic aorta. 1.6 cm right thyroid nodule, consider nonemergent outpatient thyroid ultrasound for further characterization, depending on relevant comorbidities and patient wishes. 05/18/2024: Assumed Care/Discharged Patient was seen day of discharge alert and oriented x4 w
== END 2024-05-18 12:15 | disposition home or self-care (01) ==
LOC: ANHED 21:04 → ANH3MED 05-17 03:59
PROVIDERS: Emergency Medicine; Student in an Organized Health Care Education/Training Program; Admitting Provider General Practice; Emergency Provider Student in an Organized Health Care Education/Training Program; PCP Internal Medicine; Visit Provider Nurse Practitioner Family
DX: G45.9 Transient cerebral ischemic attack, unspecified (principal); I70.0 Atherosclerosis of aorta; E43 Unspecified severe protein-calorie malnutrition; Z68.1 Body mass index [BMI] 19.9 or less, adult; I48.91 Unspecified atrial fibrillation; I10 Essential (primary) hypertension; E78.5 Hyperlipidemia, unspecified; K21.9 Gastro-esophageal reflux disease without esophagitis; F41.9 Anxiety disorder, unspecified; F32.A Depression, unspecified; Z85.3 Personal history of malignant neoplasm of breast; Z79.01 Long term (current) use of anticoagulants; Z86.73 Personal history of transient ischemic attack (TIA), and cerebral infarction without residual deficits; Z79.82 Long term (current) use of aspirin; Z20.822 Contact with and (suspected) exposure to COVID-19
CPT/HCPCS: 36415; 70496; 70498; 70553; 80053; 81001; 84484; 85025; 85055; 85610; 85730; 87637; 93005; 93306; 96375; 97161; 97165; 99285; A9270; A9577; G0378; Q9967

== ENCOUNTER 2024-11-14 15:08 | Observation (INO) | payer MEDICARE, SELFPAY ==
[2024-11-14] VITALS (8 sets, daily range): BP systolic 111–180; BP diastolic 66–96; PULSE 68–96; RESP 14–18; TEMP 36–36.8; O2SAT 94–100
--- NOTE | ~2024-11-14 | XR_ITS ---
CHEST RADIOGRAPH CLINICAL HISTORY: tia w/u . COMPARISON: 07/13/2021 TECHNIQUE: Single portable view of the chest. FINDINGS The cardiomediastinal silhouette is unremarkable. The lungs are clear. Visualized osseous structures and soft tissues are unremarkable. IMPRESSION: No focal infiltrate or effusion. Reviewed, dictated and finalized at location A. OWS APPLICATION DEVELOPER
--- NOTE | ~2024-11-14 | CT_ITS ---
CT brain wo con Ordering provider: Kimberly Escalona PA-C History: 89 years Female with . LUE/LLE weakness . Comparison: May 16 2024 Technique: CT of the head without contrast. Radiation reduction technique utilized.The dose-length product was 605.33 mGy-cm. FINDINGS: BRAIN PARENCHYMA AND CSF SPACES: Mild leukoaraiosis and diffuse cortical atrophy. Mild atheromatous d isease. No midline shift, mass effect or hemorrhage. The brain parenchyma and CSF spaces are otherwi se normal. VISUALIZED PARANASAL SINUSES: Well aerated. MASTOIDS: Well aerated. BONES: The bones appear intact. No acute areas seen in the left side of C1. Clinical correlation and follow-up advised. SOFT TISSUES: Visualized nasopharynx is normal. Superficial soft tissues are normal. IMPRESSION: No acute intracranial findings. Reviewed, dictated and finalized at location A. AIN ENGINEER
--- NOTE | ~2024-11-14 | CT_ITS ---
CTA brain carotid Ordering provider: Sagar Pavon MD History: . L sided arm and leg weakness. resolved. . Comparison: None. Technique: CT angiogram head and neck was performed following timed intravenous injection of contrast . Thin slice axial images and reformatted coronal images were obtained. Three dimensional reformatted images of the brain were also obtained using a [employer] workstation. Radiation reduction technique ut ilized.The dose-length product was 927.85 mGy-cm. 100 mL Omnipaque 350 was given IV. FINDINGS: HEAD: --ANTERIOR AND MIDDLE CEREBRAL ARTERIES AND BRANCHES: Normal caliber and contour. --INTERNAL CAROTID ARTERIES: Mild atheromatous disease but no significant stenosis. No occlusion. --BASILAR ARTERY AND BRANCHES: Normal caliber and contour. No atheromatous disease. --POSTERIOR CEREBRAL ARTERIES: Normal caliber and contour --POSTERIOR COMMUNICATING ARTERIES: The right continues as the posterior cerebral artery. The left is not visualized which is probably related to congenital absence or small size. --ANEURYSM: None visualized. --BRAIN: Please refer to report of CT head performed the same day. --BONES AND SUPERFICIAL SOFT TISSUES: Please refer to report of CT head performed the same day. --PARANASAL SINUSES AND MASTOIDS: Please refer to report of CT head done the same day. NECK: --RIGHT CERVICAL CAROTID SYSTEM: Mild atheromatous disease of the carotid bulb and proximal internal carotid artery without significant stenosis. Percent stenosis per NASCET criteria is 10%. No carotid dissection. Otherwise, no significant atheromatous disease or stenosis of the cervical carotid syste m. --LEFT CERVICAL CAROTID SYSTEM: Mild atheromatous disease of the carotid bulb and proximal internal c arotid artery without significant stenosis. Percent stenosis per NASCET criteria is 70%. No carotid dissection. Otherwise, no significant atheromatous disease or stenosis of the cervical carotid system. --VERTEBRAL ARTERIES: Normal caliber and contour. --VISUALIZED AORTIC ARCH AND BRANCHING VESSELS: Severe atheromatous disease but no significant stenos is. --SOFT TISSUES: Bilateral groundglass appearance in the lungs. This may indicate atelectasis. Underly ing emphysematous changes. Bilateral thyroid nodules. Ultrasound evaluation advised. --CERVICAL SPINE: Age appropriate degenerative changes. Sclerotic area seen in C1 and C3. IMPRESSION: 1. CTA neck. Percent stenosis per NASCET criteria is 70% on the left side. 10% on the right. 2. No intracerebral occlusion or significant stenosis seen. 3. Right posterior communicating artery continues as the posterior cerebral artery. Reviewed, dictated and finalized at location A. ROUTER OPERATOR IMPRESSION: 1. CTA neck. Percent stenosis per NASCET criteria is 70% on the left side. 1 0% on the right. 2. No intracerebral occlusion or significant stenosis seen. 3. Right posterior communicating artery continues as the posterior cerebral ar maye.
--- NOTE | ~2024-11-14 | MR_ITS ---
MRI of the brain Clinical History: Transient cerebral ischemia Technique: Axial and sagittal T1-weighted images were acquired. These were followed by axial T2-weigh renee, diffusion weighted, gradient, and FLAIR images. COMPARISON: 05/17/2024 Findings: There is no acute infarct, intracranial hemorrhage, or mass lesion. There is advanced chron ic microvascular ischemic change throughout the periventricular white matter bilaterally. Ventricles and subarachnoid spaces are unremarkable. Orbits are unremarkable. Paranasal sinuses and m astoid air cells are clear. Major intracranial flow voids are grossly intact. Sagittal midline structures are intact. IMPRESSION: No acute abnormality seen. Advanced chronic microvascular ischemic change. Reviewed, dictated and finalized at location M. HER ANALYST
--- NOTE | 2024-11-14 15:54 | ED.WEAKNESS ---
HPI - Weakness General Chief complaint: Weakness Stated complaint: weakness Time Seen by Provider: 11/14/24 15:54 Focused HPI: Patient is an 89-year-old who presents to the ED with c/o L sided weakness. Patient reports she woke up around 5am this morning with weakness and numbness in her L leg. She then went to breakfast and reported having numbness and weakness in her L arm and L leg at 1030am. States her leg felt at that time and she was unable to even stand up due to the weakness. States the symptoms lasted for approximately 30 minutes before resolving on their own. Patient denies any numbness or weakness currently. Denies any issues with her speech. Denies headache, vision changes, dizziness. GENERAL: Elderly, frail/thin, and in no acute distress. HEAD: Normocephalic, atraumatic. CHEST: Clear to auscultation. ?No respiratory distress. HEART: Regular rate and rhythm.? NEURO: ?Alert and oriented x3. No appreciable focal deficits. Strength 5 of 5 in upper and lower extremities bilaterally. No pronator drift. Equal pack out operator strength bilaterally. Patient screened in triage and initial orders placed.? ?Additional care and disposition to be based upon?diagnostic testing and treatment. Source: patient Mode of arrival: EMS Limitations: no limitations Related Data Home Medications ?Medication ?Instructions ?Recorded ?Confirmed ?Last Taken ?Type calcium carbonate 500 mg PO PRN PRN Heartburn 07/10/21 11/15/24 11/14/24 08:00 History citalopram 20 mg tablet 20 mg PO DAILY 07/10/21 11/15/24 11/14/24 08:00 History spironolactone 25 mg tablet 25 mg PO DAILY 07/10/21 11/15/24 11/14/24 08:00 History apixaban 2.5 mg tablet (Eliquis) 2.5 mg PO BID 05/17/24 11/15/24 11/14/24 08:00 History furosemide 40 mg tablet 20 mg PO DAILY 05/17/24 11/15/24 11/14/24 08:00 History famotidine 20 mg tablet (Acid 20 mg PO DAILY 11/15/24 11/15/24 11/14/24 08:00 History Controller) metoprolol tartrate 50 mg tablet 50 mg PO DAILY 11/15/24 11/15/24 11/14/24 08:00 History rosuvastatin 40 mg tablet 40 mg PO HS 11/15/24 11/15/24 11/13/24 20:00 History Allergies Allergy/AdvReac Type Severity Reaction Status Date / Time adhesive tape Allergy Unknown Unknown Verified 05/16/24 20:47 benazepril Allergy Unknown Unknown Verified 05/16/24 20:47 irbesartan Allergy Unknown Unknown Verified 05/16/24 20:47 [facility] Past Medical History Medical History Stenosis of left internal carotid artery Paroxysmal atrial fibrillation Gastroesophageal reflux disease Esophageal dilatation (1999) Dermatomyositis Malignant melanoma (2009) Excised from right arm Migraines Breast cancer Essential hypertension Depression Anxiety Hyperlipidemia Surgical History Surgical History History of cataract extraction with lens replacement History of cholecystectomy History of hip surgery Right hip surgery at 9 years old at which time she required a blood transfusion History of colonoscopy with polypectomy History of classical section 6 para 7 History of partial mastectomy of right breast (2010) Family History Family History Sibling Acute myocardial infarction, Onset Age: 70 Mother Old age, Onset Age: 95 Father Parkinsons disease, Onset Age: 80 Sibling Acute myocardial infarction, Onset Age: 49 Tobacco abuse disorder Daughter Breast cancer Other Family history of malignant neoplasm of breast in first degree relative Social History Social History Social History: Surrogate medical decision maker: Marcello Ramirez, son. Code status: Do not resuscitate. Smoking status: Never smoker Second hand tobacco smoke exposure: No Alcohol intake: never Substance use: never Substance use type: does not use Do You Feel Safe in your Home?: Yes Lack of Transportation: No Lack of Food: Never True Current Housing: I Have Housing Concerned About Future Housing: No Difficulty Paying Gas/Electric Bills: No Difficulty Paying for Meds: No Currently Unemployed: No Education: Associate Degree Difficulty w/ Childcare or Family Care: No Additional living arrangements comments: Patient is . She lives in her own home and ambulates with a walker. She has 7 children Spiritual care concerns: Yes (Syn[employer]) Course Vital Signs Vital signs: Vital Signs Temperature 96.8 F L 11/14/24 12:50 Pulse Rate 80 11/14/24 12:50 Respiratory Rate 18 11/14/24 12:50 Blood Pressure 111/83 11/14/24 12:50 Pulse Oximetry 99 11/14/24 12:50 Oxygen Delivery Room Air 11/14/24 12:50 Temperature 97.6 F 11/15/24 16:00 Pulse Rate 81 11/15/24 16:00 Respiratory Rate 17 11/15/24 16:00 Blood Pressure 128/76 11/15/24 16:00 Pulse Oximetry 99 11/15/24 16:00 Oxygen Delivery Room Air 11/15/24 09:40 MDM - Weakness MDM Narrative Medical decision making narrative: MSE by SOLE in triage. Lab Data 11/14/24 17:24 11/14/24 19:15 Labs: Lab Results 11/14/24 11/14/24 11/14/24 Range/Units 17:16 17:24 19:14 WBC 4.7 (4.5-10.0) K/mm3 RBC 5.09 (4.2-5.4) M/mm3 Hgb 15.6 H (12.0-15.0) g/dL Hct 45.8 (37.0-47.0) % MCV 90.0 (80-100) fl MCH 30.6 (26-34) pg MCHC 34.1 (32-36) g/dl RDW 12.9 (11.5-14.5) % Plt Count 120 L (150-375) k/mm3 MPV 11.5 H (7.4-10.4) fl Immature Gran % (Auto) 0.4 (0-0.5) % Neut % (Auto) 56.8 (45.5-73.1) % Lymph % (Auto) 27.8 (18.3-44.2) % [place] % (Auto) 12.7 H (2.6-8.5) % Eos % (Auto) 1.9 (0-4.4) % Baso % (Auto) 0.4 (0.2-1.2) % Lymph # (Auto) 1.32 (0.9-3.2) K/mm3 [place] # (Auto) 0.6 (0.1-0.6) K/mm3 Eos # (Auto) 0.1 (0-0.3) K/mm3 Baso # (Auto) 0.0 (0.0-0.1) K/mm3 Abs Immat Gran (auto) 0.02 (0.00-0.031) K/mm3 Absolute Neuts (auto) 2.7 (1.3-6.7) K/mm3 Absolute Nucleated RBC 0.000 (0.0-0.012) K/mm3 Nucleated RBC % 0.0 (0.0-0.2) % % Immature Plt Fraction 7.1 (0.9-11.2) % PT 15.8 H (11.1-14.7) Seconds INR 1.2 APTT 27.6 (22.3-36.8) Seconds Sodium (137-145) mmol/L Potassium (3.4-5.0) mmol/L Chloride (98-107) mmol/L Carbon Dioxide (22-30) mmol/L Anion Gap (4-12) mmol/L BUN (7-17) mg/dL Creatinine (0.7-1.0) mg/dL Estim Creat Clear Calc ml/min Estimated GFR (59 - ) Glucose (65-110) mg/dL POC Capillary Glucose 102 (65-105) mg/dl Calcium (8.4-10.2) mg/dL Magnesium (1.6-2.3) mg/dL Total Bilirubin (0.2-1.3) mg/dL AST (14-36) U/L ALT (6-35) U/L Alkaline Phosphatase (38-126) U/L Troponin I (0.000-0.034) ng/mL Total Protein (6.3-8.2) g/dL Albumin (3.5-5.1) g/dL Urine Color Yellow (Yellow) Urine Appearance Clear (Clear) Urine pH 5.5 (5.0-9.0) Ur Specific [place] 1.007 (1.001-1.035) Urine Protein Negative (Negative) mg/dL Urine Glucose (UA) Negative (Negative) mg/dL Urine Ketones Negative (Negative) mg/dL Ur Blood (Man) Trace (Negative) Urine Nitrate Negative (Negative) Urine Bilirubin Negative (Negative) Urine Urobilinogen 0.2 (<2.0) mg/dL Leukocyte Esterase Rfl 2+ H (Negative) ANGELICA/UL Urine RBC 0-2 (0-2) /hpf Urine WBC 21-50 H (0-3) /hpf Ur Squamous Epith Cells None seen (Few) /hpf Urine Bacteria None seen /hpf Urine Casts 0-2 Influenza A (RT-PCR) (Negative) Influenza B (RT-PCR) (Negative) RSV (RT-PCR) (Negative) SARS-CoV-2 RNA (RT-PCR) (Negative) 11/14/24 Range/Units 19:15 WBC (4.5-10.0) K/mm3 RBC (4.2-5.4) M/mm3 Hgb (12.0-15.0) g/dL Hct (37.0-47.0) % MCV (80-100) fl MCH (26-34) pg MCHC (32-36) g/dl RDW (11.5-14.5) % Plt Count (150-375) k/mm3 MPV (7.4-10.4) fl Immature Gran % (Auto) (0-0.5) % Neut % (Auto) (45.5-73.1) % Lymph % (Auto) (18.3-44.2) % [place] % (Auto) (2.6-8.5) % Eos % (Auto) (0-4.4) % Baso % (Auto) (0.2-1.2) % Lymph # (Auto) (0.9-3.2) K/mm3 [place] # (Auto) (0.1-0.6) K/mm3 Eos # (Auto) (0-0.3) K/mm3 Baso # (Auto) (0.0-0.1) K/mm3 Abs Immat Gran (auto) (0.00-0.031) K/mm3 Absolute Neuts (auto) (1.3-6.7) K/mm3 Absolute Nucleated RBC (0.0-0.012) K/mm3 Nucleated RBC % (0.0-0.2) % % Immature Plt Fraction (0.9-11.2) % PT (11.1-14.7) Seconds INR APTT (22.3-36.8) Seconds Sodium 135 L (137-145) mmol/L Potassium 3.9 (3.4-5.0) mmol/L Chloride 103 (98-107) mmol/L Carbon Dioxide 27 (22-30) mmol/L Anion Gap 5 (4-12) mmol/L BUN 18 H (7-17) mg/dL Creatinine 1.00 (0.7-1.0) mg/dL Estim Creat Clear Calc 27 ml/min Estimated GFR 52 L (59 - ) Glucose 96 (65-110) mg/dL POC Capillary Glucose (65-105) mg/dl Calcium 9.8 (8.4-10.2) mg/dL Magnesium 1.8 (1.6-2.3) mg/dL Total Bilirubin 0.9 (0.2-1.3) mg/dL AST 32 (14-36) U/L ALT 20 (6-35) U/L Alkaline Phosphatase 67 (38-126) U/L Troponin I < 0.012 (0.000-0.034) ng/mL Total Protein 7.0 (6.3-8.2) g/dL Albumin 4.1 (3.5-5.1) g/dL Urine Color (Yellow) Urine Appearance (Clear) Urine pH (5.0-9.0) Ur Specific [place] (1.001-1.035) Urine Protein (Negative) mg/dL Urine Glucose (UA) (Negative) mg/dL Urine Ketones (Negative) mg/dL Ur Blood (Man) (Negative) Urine Nitrate (Negative) Urine Bilirubin (Negative) Urine Urobilinogen (<2.0) mg/dL Leukocyte Esterase Rfl (Negative) ANGELICA/UL Urine RBC (0-2) /hpf Urine WBC (0-3) /hpf Ur Squamous Epith Cells (Few) /hpf Urine Bacteria /hpf Urine Casts Influenza A (RT-PCR) Negative (Negative) Influenza B (RT-PCR) Negative (Negative) RSV (RT-PCR) Negative (Negative) SARS-CoV-2 RNA (RT-PCR) Negative (Negative) Discharge Plan Discharge Clinical Impression: Brain TIA Patient Disposition: Still a Patient Condition: Stable
--- NOTE | 2024-11-14 16:03 | ECG_ITS ---
Test Date: 2024-11-14 17:18:15 Measurements Intervals [place] Rate: 82 P: 0 [place]: 0 QRS: 28 QRSD: 93 T: 19 QT: 381 QTc: 447 Interpretive Statements ATRIAL FIBRILLATION WITH ABERRANT CONDUCTION OR VENTRICULAR PREMATURE COMPLEXES NONSPECIFIC T-WAVE ABNORMALITY ABNORMAL RHYTHM ECG Compared to ECG 05/16/2024 18:49:59 Aberrant conduction of supraventricular beat(s) now present Electronically Signed On 11-14-2024 17:55:10 INSURANCE SALES EXECUTIVE by Esdras Bennett M.D.
[2024-11-14 17:27] LABS: Glucose Point of Care 102 mg/dl (65-105)
[2024-11-14 17:37] LABS: Basophils Percent Auto 0.4 % (0.2-1.2); Eosinophils Absolute Auto 0.1 K/mm3 (0-0.3); Eosinophils Percent Auto 1.9 % (0-4.4); Hematocrit 45.8 % (37.0-47.0); Hemoglobin 15.6 g/dL (12.0-15.0); Immature Granulocyte Absolute 0.02 K/mm3 (0.00-0.031); Immature Granulocyte Percent A 0.4 % (0-0.5); Immature Platelet Fraction Pct 7.1 % (0.9-11.2); Lymphocytes Absolute Auto 1.32 K/mm3 (0.9-3.2); Lymphocytes Percent Auto 27.8 % (18.3-44.2); Mean Corpuscular HGB Conc 34.1 g/dl (32-36); Mean Corpuscular Hemoglobin 30.6 pg (26-34); Mean Platelet Volume 11.5 fl (7.4-10.4); Monocytes Absolute Auto 0.6 K/mm3 (0.1-0.6); Monocytes Percent Auto 12.7 % (2.6-8.5); Neutrophils Absolute Auto 2.7 K/mm3 (1.3-6.7); Neutrophils Percent Auto 56.8 % (45.5-73.1); Platelet Count Result 120 k/mm3 (150-375); Red Blood Count 5.09 M/mm3 (4.2-5.4); Red Cell Distribution Width 12.9 % (11.5-14.5); White Blood Count 4.7 K/mm3 (4.5-10.0)
[2024-11-14 17:41] LABS: INR 1.2; Prothrombin Time 15.8 Seconds (11.1-14.7)
[2024-11-14 17:42] LABS: Partial Thromboplastin Time 27.6 Seconds (22.3-36.8)
[2024-11-14 19:39] LABS: Alanine Aminotransferase 20 U/L (6-35); Albumin Level 4.1 g/dL (3.5-5.1); Alkaline Phosphatase 67 U/L (38-126); Anion Gap 5 mmol/L (4-12); Aspartate Amino Transferase 32 U/L (14-36); Bilirubin,Total 0.9 mg/dL (0.2-1.3); Blood Urea Nitrogen 18 mg/dL (7-17); Calcium 9.8 mg/dL (8.4-10.2); Carbon Dioxide 27 mmol/L (22-30); Chloride 103 mmol/L (98-107); Estimated CRCL calculation 27 ml/min; Estimated Glomerular Filt Rate 52; Glucose 96 mg/dL (65-110); Magnesium 1.8 mg/dL (1.6-2.3); Potassium 3.9 mmol/L (3.4-5.0); Sodium 135 mmol/L (137-145)
[2024-11-14 19:51] LABS: Troponin I < 0.012 ng/mL (0.000-0.034)
[2024-11-14 20:06] LABS: Add Urine Microscopic? YES; Appearance Urine Clear (Clear); Bacteria Urine None Seen /hpf; Bilirubin Urine Negative (Negative); Blood Urine Trace (Negative); Color Urine Yellow (Yellow); Glucose Urine UA Negative (Negative); Ketones Urine Negative (Negative); Leukocyte Esterase Ur 2+ LEU/UL (Negative); Nitrate Urine Negative (Negative); Non Pathogenic Casts 0-2; Protein Urine Negative (Negative); RBC Urine 0-2 /hpf (0-2); Specific Grav Ur 1.007 (1.001-1.035); Squamous Epithelial Cell Urine None Seen /hpf (Few); Urobilinogen Urine 0.2 mg/dL (<2.0); WBC Urine 21-50 /hpf (0-3); pH Urine 5.5 (5.0-9.0)
[2024-11-14 20:08] LABS: Influenza A QL RT-PCR Negative (Negative); Influenza B QL RT-PCR Negative (Negative); RSV RNA, RT-PCR Negative (Negative); SARS-CoV-2 RNA PCR Negative (Negative)
--- NOTE | 2024-11-14 21:51 | ED_ITS ---
HPI - General Adult General Chief complaint: Weakness Stated complaint: weakness Time Seen by Provider: 11/14/24 15:54 Source: patient Mode of arrival: EMS Limitations: no limitations Related Data Home Medications ?Medication ?Instructions ?Recorded ?Confirmed ?Last Taken ?Type atorvastatin 20 mg tablet 40 mg PO DAILY 07/10/21 05/17/24 Unknown History calcium carbonate 500 mg PO PRN PRN Heartburn 07/10/21 05/17/24 Unknown History citalopram 20 mg tablet 20 mg PO DAILY 07/10/21 05/17/24 Unknown History spironolactone 25 mg tablet 25 mg PO DAILY 07/10/21 05/17/24 Unknown History apixaban 2.5 mg tablet (Eliquis) 2.5 mg PO BID 05/17/24 05/17/24 Unknown History furosemide 40 mg tablet 20 mg PO DAILY 05/17/24 05/17/24 Unknown History Allergies Allergy/AdvReac Type Severity Reaction Status Date / Time adhesive tape Allergy Unknown Unknown Verified 05/16/24 20:47 benazepril Allergy Unknown Unknown Verified 05/16/24 20:47 irbesartan Allergy Unknown Unknown Verified 05/16/24 20:47 [facility] Past Medical History Medical History (Updated 11/14/24 @ 21:59 by Sagar Pavon MD) Esophageal dilatation (~1999) GERD (gastroesophageal reflux disease) Dermatomyositis Malignant melanoma (~2009) Excised from right arm Migraines Breast cancer Essential hypertension Depression Anxiety Hyperlipidemia Surgical History Surgical History (Updated 07/10/21 @ 20:24 by Radha Basilio DO) History of hip surgery Right hip surgery at 9 years old at which time she required a blood transfusion History of colonoscopy with polypectomy History of classical section 6 para 7 History of partial mastectomy of right breast (~2010) Status post cholecystectomy Open cholecystectomy Status post cataract extraction of both eyes with insertion of intraocular lens Family History Family History Sibling Acute myocardial infarction, Onset Age: 70 Mother Old age, Onset Age: 95 Father Parkinsons disease, Onset Age: 80 Sibling Acute myocardial infarction, Onset Age: 49 Tobacco abuse disorder Daughter Breast cancer Other Family history of malignant neoplasm of breast in first degree relative Social History Social History (Updated 07/10/21 @ 22:19 by Radha Basilio DO) Social History: She is . She lives alone in a town home. She used to work as a medical practice assistant and housekeeping. She has 7 children 6 sons and 1 daughter. Code status: DNR/DNI per patient request Smoking status: Never smoker Second hand tobacco smoke exposure: Yes Alcohol intake: never Substance use: never Substance use type: does not use Do You Feel Safe in your Home?: Yes Lack of Transportation: No Lack of Food: Never True Current Housing: I Have Housing Concerned About Future Housing: No Difficulty Paying Gas/Electric Bills: YES Difficulty Paying for Meds: No Currently Unemployed: No Education: High School Diploma/GED Difficulty w/ Childcare or Family Care: No Spiritual care concerns: No Exam 2 Narrative: APPEARANCE: No apparent distress. Head: atraumatic. EYES: EOMI, NOSE: Atraumatic NECK: Trachea midline RESPIRATORY: No increased rate of breathing, CTAB CARDIOVASCULAR: RRR, pulses in 4/4 extremities ABDOMINAL: Non-distended MUSCULOSKELETAl: No obvious deformities NEURO: Alert. Cranial nerves 2-12 grossly intact. Sensation light touch, motor function cerebellar function intact for 4 extremities. Gait exam was normal. NIH 0 SKIN:: Warm, dry. Normal color PSYCHIATRIC: Normal affect Course Vital Signs Vital signs: Vital Signs Temperature 96.8 F L 11/14/24 12:50 Pulse Rate 80 11/14/24 12:50 Respiratory Rate 18 11/14/24 12:50 Blood Pressure 111/83 11/14/24 12:50 Pulse Oximetry 99 11/14/24 12:50 Oxygen Delivery Room Air 11/14/24 12:50 Temperature 98.2 F 11/14/24 18:54 Pulse Rate 92 11/14/24 21:31 Respiratory Rate 15 11/14/24 21:31 Blood Pressure 162/90 H 11/14/24 21:31 Pulse Oximetry 94 11/14/24 21:31 Oxygen Delivery Room Air 11/14/24 18:54 Medical Decision Making MDM Narrative Medical decision making narrative: -Course: 81-year-old female presenting with brief episode of left arm and left leg weakness. She is currently asymptomatic. NIH is 0. CTA a showed a 70% stenosis of the left carotid artery which does not correspond with her symptoms. Patient will be admitted the hospital for TIA. Patient has 21-50 white blood cells and +2 leuk esterase but has no urinary symptoms. Will hold off on abx. -DDX includes but is not limited to: TIA, CVA -Independent interpretation of studies: Labs imaging reviewed Independent EKG interpretation: Rhythm A fib, Rate [82], Sentinel -[normal], MA -[none], QRS [narrow], QTC [normal], T waves -[negative for concerning inversions], ST Segments - [Negative for concerning elevations] Final interpretations: AFib with frequent PACs. -Discussion of Management/Consultants: Tammy -Shared decision making / Disposition:Admitted. Vital Signs Vital Signs: Vital Signs Temperature 96.8 F L 11/14/24 12:50 Pulse Rate 80 11/14/24 12:50 Respiratory Rate 18 11/14/24 12:50 Blood Pressure 111/83 11/14/24 12:50 Pulse Oximetry 99 11/14/24 12:50 Oxygen Delivery Room Air 11/14/24 12:50 Temperature 98.2 F 11/14/24 18:54 Pulse Rate 92 11/14/24 21:31 Respiratory Rate 15 11/14/24 21:31 Blood Pressure 162/90 H 11/14/24 21:31 Pulse Oximetry 94 11/14/24 21:31 Oxygen Delivery Room Air 11/14/24 18:54 Lab Data 11/14/24 17:24 11/14/24 19:15 Labs: Lab Results 11/14/24 11/14/24 11/14/24 Range/Units 17:16 17:24 19:14 WBC 4.7 (4.5-10.0) K/mm3 RBC 5.09 (4.2-5.4) M/mm3 Hgb 15.6 H (12.0-15.0) g/dL Hct 45.8 (37.0-47.0) % MCV 90.0 (80-100) fl MCH 30.6 (26-34) pg MCHC 34.1 (32-36) g/dl RDW 12.9 (11.5-14.5) % Plt Count 120 L (150-375) k/mm3 MPV 11.5 H (7.4-10.4) fl Immature Gran % (Auto) 0.4 (0-0.5) % Neut % (Auto) 56.8 (45.5-73.1) % Lymph % (Auto) 27.8 (18.3-44.2) % [place] % (Auto) 12.7 H (2.6-8.5) % Eos % (Auto) 1.9 (0-4.4) % Baso % (Auto) 0.4 (0.2-1.2) % Lymph # (Auto) 1.32 (0.9-3.2) K/mm3 [place] # (Auto) 0.6 (0.1-0.6) K/mm3 Eos # (Auto) 0.1 (0-0.3) K/mm3 Baso # (Auto) 0.0 (0.0-0.1) K/mm3 Abs Immat Gran (auto) 0.02 (0.00-0.031) K/mm3 Absolute Neuts (auto) 2.7 (1.3-6.7) K/mm3 Absolute Nucleated RBC 0.000 (0.0-0.012) K/mm3 Nucleated RBC % 0.0 (0.0-0.2) % % Immature Plt Fraction 7.1 (0.9-11.2) % PT 15.8 H (11.1-14.7) Seconds INR 1.2 APTT 27.6 (22.3-36.8) Seconds Sodium (137-145) mmol/L Potassium (3.4-5.0) mmol/L Chloride (98-107) mmol/L Carbon Dioxide (22-30) mmol/L Anion Gap (4-12) mmol/L BUN (7-17) mg/dL Creatinine (0.7-1.0) mg/dL Estim Creat Clear Calc ml/min Estimated GFR (59 - ) Glucose (65-110) mg/dL POC Capillary Glucose 102 (65-105) mg/dl Calcium (8.4-10.2) mg/dL Magnesium (1.6-2.3) mg/dL Total Bilirubin (0.2-1.3) mg/dL AST (14-36) U/L ALT (6-35) U/L Alkaline Phosphatase (38-126) U/L Troponin I (0.000-0.034) ng/mL Total Protein (6.3-8.2) g/dL Albumin (3.5-5.1) g/dL Urine Color Yellow (Yellow) Urine Appearance Clear (Clear) Urine pH 5.5 (5.0-9.0) Ur Specific [place] 1.007 (1.001-1.035) Urine Protein Negative (Negative) mg/dL Urine Glucose (UA) Negative (Negative) mg/dL Urine Ketones Negative (Negative) mg/dL Ur Blood (Man) Trace (Negative) Urine Nitrate Negative (Negative) Urine Bilirubin Negative (Negative) Urine Urobilinogen 0.2 (<2.0) mg/dL Leukocyte Esterase Rfl 2+ H (Negative) ANGELICA/UL Urine RBC 0-2 (0-2) /hpf Urine WBC 21-50 H (0-3) /hpf Ur Squamous Epith Cells None seen (Few) /hpf Urine Bacteria None seen /hpf Urine Casts 0-2 Influenza A (RT-PCR) (Negative) Influenza B (RT-PCR) (Negative) RSV (RT-PCR) (Negative) SARS-CoV-2 RNA (RT-PCR) (Negative) 11/14/24 Range/Units 19:15 WBC (4.5-10.0) K/mm3 RBC (4.2-5.4) M/mm3 Hgb (12.0-15.0) g/dL Hct (37.0-47.0) % MCV (80-100) fl MCH (26-34) pg MCHC (32-36) g/dl RDW (11.5-14.5) % Plt Count (150-375) k/mm3 MPV (7.4-10.4) fl Immature Gran % (Auto) (0-0.5) % Neut % (Auto) (45.5-73.1) % Lymph % (Auto) (18.3-44.2) % [place] % (Auto) (2.6-8.5) % Eos % (Auto) (0-4.4) % Baso % (Auto) (0.2-1.2) % Lymph # (Auto) (0.9-3.2) K/mm3 [place] # (Auto) (0.1-0.6) K/mm3 Eos # (Auto) (0-0.3) K/mm3 Baso # (Auto) (0.0-0.1) K/mm3 Abs Immat Gran (auto) (0.00-0.031) K/mm3 Absolute Neuts (auto) (1.3-6.7) K/mm3 Absolute Nucleated RBC (0.0-0.012) K/mm3 Nucleated RBC % (0.0-0.2) % % Immature Plt Fraction (0.9-11.2) % PT (11.1-14.7) Seconds INR APTT (22.3-36.8) Seconds Sodium 135 L (137-145) mmol/L Potassium 3.9 (3.4-5.0) mmol/L Chloride 103 (98-107) mmol/L Carbon Dioxide 27 (22-30) mmol/L Anion Gap 5 (4-12) mmol/L BUN 18 H (7-17) mg/dL Creatinine 1.00 (0.7-1.0) mg/dL Estim Creat Clear Calc 27 ml/min Estimated GFR 52 L (59 - ) Glucose 96 (65-110) mg/dL POC Capillary Glucose (65-105) mg/dl Calcium 9.8 (8.4-10.2) mg/dL Magnesium 1.8 (1.6-2.3) mg/dL Total Bilirubin 0.9 (0.2-1.3) mg/dL AST 32 (14-36) U/L ALT 20 (6-35) U/L Alkaline Phosphatase 67 (38-126) U/L Troponin I < 0.012 (0.000-0.034) ng/mL Total Protein 7.0 (6.3-8.2) g/dL Albumin 4.1 (3.5-5.1) g/dL Urine Color (Yellow) Urine Appearance (Clear) Urine pH (5.0-9.0) Ur Specific [place] (1.001-1.035) Urine Protein (Negative) mg/dL Urine Glucose (UA) (Negative) mg/dL Urine Ketones (Negative) mg/dL Ur Blood (Man) (Negative) Urine Nitrate (Negative) Urine Bilirubin (Negative) Urine Urobilinogen (<2.0) mg/dL Leukocyte Esterase Rfl (Negative) ANGELICA/UL Urine RBC (0-2) /hpf Urine WBC (0-3) /hpf Ur Squamous Epith Cells (Few) /hpf Urine Bacteria /hpf Urine Casts Influenza A (RT-PCR) Negative (Negative) Influenza B (RT-PCR) Negative (Negative) RSV (RT-PCR) Negative (Negative) SARS-CoV-2 RNA (RT-PCR) Negative (Negative) Discharge Plan Discharge Clinical Impression: Brain TIA Patient Disposition: Still a Patient Condition: Stable Patient Language: Portuguese Prescriptions: No Action acetaminophen [Tylenol Arthritis Pain] 650 mg tablet extended release 650 mg PO Q8H PRN (Reason: pain) Qty: 7 0RF Eliquis 2.5 mg tablet 2.5 mg PO BID furosemide 40 mg tablet 20 mg PO DAILY atorvastatin 20 mg tablet 40 mg PO DAILY spironolactone 25 mg tablet 25 mg PO DAILY citalopram 20 mg tablet 20 mg PO DAILY calcium carbonate 195 mg calcium (500 mg) Tablet,Chewable 500 mg PO PRN PRN (Reason: Heartburn) metoprolol tartrate 50 mg Tablet 50 mg PO Q12HR Qty: 60 0RF aspirin [Children's Aspirin] 81 mg Tablet,Chewable 81 mg PO DAILY@0800 Qty: 30 0RF Follow-up/Referrals: Izaiah,Sven Lawler MD [Primary Care Provider] - Quality NIHSS Nursing Documentation ED NIHSS nursing documentation: reviewed/agree Stroke Scale Stroke Scale 1: Stroke scale date:: 11/14/24 1a Level of consciousness: alert-0 1b Level of consciousness questions: answers both correctly-0 1c Level of consciousness commands: obeys both correctly-0 2 Best gaze: normal-0 3 Visual: no visual loss-0 4 Facial palsy: normal-0 5a Motor: left arm: no drift-0 5b Motor: right arm: no drift-0 6a Motor: left leg: no drift-0 6b Motor: right leg: no drift-0 7 Limb ataxia: absent-0 8 Sensory: normal-0 9 Best language: no aphasia-0 10 Dysarthria: normal-0 11 Extinction and inattention: no abnormality-0 Level:: 0
--- NOTE | 2024-11-14 22:55 | P.HP_ITS ---
H&P: HPI History of Present Illness Date/Time: 11/14/24 23:25 Chief Complaint: Left-sided weakness. 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 The patient provides the following history. She reports feeling in her usual state of health when she got up this morning. After getting up in walking to the kitchen have breakfast she noticed that her left leg felt numb and weak and 4 mow med ?it felt ? and she had to sit down. Shortly thereafter she notice mild weakness and numbness in the left upper extremity. His symptoms completely resolved within 30 minutes and have not returned. She denies vertigo, visual changes, facial droop, difficulty speaking and swallowing, and current focal weakness and paresthesias. In the ED: Blood pressure has been as high as 180/91. She has been in rate controlled atrial fibrillation. Labs were significant for a WBC count 4.7, hemoglobin 15.6, platelet 120, sodium 135, BUN 18, creatinine 1.00, troponin less than 0.012. She tested negative for influenza, RSV, and COVID. Head CT showed no acute findings. CTA of the head and neck showed no intracerebral oc clusion or significant stenosis, 70% left internal carotid artery stenosis, and 10% right internal carotid artery stenosis. Chest x-ray did not show any acute findings. She is being admitted in this setting for close monitoring and further workup. Review of Systems Review of Systems: 12 systems were reviewed and are negativ e except for as per HPI. FORMERLY [facility] Past Medical History Medical History (Updated 11/14/24 @ 23:13 by Jluia Zaldivar PA-C) Stenosis of left internal carotid artery Paroxysmal atrial fibrillation Gastroesophageal reflux disease Esophageal dilatation (1999) Dermatomyositis Malignant melanoma (2009) Excised from right arm Migraines Breast cancer Essential hypertension Depression Anxiety Hyperlipidemia Surgical History Surgical History (Updated 11/14/24 @ 22:57 by Julia Zaldivar PA-C) History of cataract extraction with lens replacement History of cholecystectomy History of hip surgery Right hip surgery at 9 years old at which time she required a blood transfusion History of colonoscopy with polypectomy History of classical section 6 para 7 History of partial mastectomy of right breast (2010) Family History Family History Sibling Acute myocardial infarction, Onset Age: 70 Mother Old age, Onset Age: 95 Father Parkinsons disease, Onset Age: 80 Sibling Acute myocardial infarction, Onset Age: 49 Tobacco abuse disorder Daughter Breast cancer Other Family history of malignant neoplasm of breast in first degree relative Social History Social History (Updated 11/15/24 @ 05:35 by Julia Zaldivar PA-C) Social History: Surrogate medical decision maker: Marcello Ramirez, bala. Code status: Do not resuscitate. Smoking status: Never smoker Second hand tobacco smoke exposure: No Alcohol intake: never Substance use: never Substance use type: does not use Do You Feel Safe in your Home?: Yes Lack of Transportation: No Lack of Food: Never True Current Housing: I Have Housing Concerned About Future Housing: No Difficulty Paying Gas/Electric Bills: No Difficulty Paying for Meds: No Currently Unemployed: No Education: Associate Degree Difficulty w/ Childcare or Family Care: No Additional living arrangements comments: Patient is . She lives in her own home and ambulates with a walker. She has 7 children Spiritual care concerns: Yes (Synagogue) Meds Home Medications and Allergies Home Medications ?Medication ?Instructions ?Recorded ?Confirmed ?Type acetaminophen 650 mg 650 mg PO Q8H PRN pain #7 tabs 09/26/20 05/17/24 Rx tablet,extended release (Tylenol Arthritis Pain) atorvastatin 20 mg tablet 40 mg PO DAILY 07/10/21 05/17/24 History calcium carbonate 500 mg PO PRN PRN Heartburn 07/10/21 05/17/24 History citalopram 20 mg tablet 20 mg PO DAILY 07/10/21 05/17/24 History spironolactone 25 mg tablet 25 mg PO DAILY 07/10/21 05/17/24 History aspirin 81 mg chewable tablet 81 mg PO DAILY@0800 #30 tabs 07/13/21 05/17/24 Rx (Children's Aspirin) metoprolol tartrate 50 mg tablet 50 mg PO Q12HR #60 tabs 07/13/21 05/17/24 Rx apixaban 2.5 mg tablet (Eliquis) 2.5 mg PO BID 05/17/24 05/17/24 History furosemide 40 mg tablet 20 mg PO DAILY 05/17/24 05/17/24 History Allergies Allergy/AdvReac Type Severity Reaction Status Date / Time adhesive tape Allergy Unknown Unknown Verified 05/16/24 20:47 benazepril Allergy Unknown Unknown Verified 05/16/24 20:47 irbesartan Allergy Unknown Unknown Verified 05/16/24 20:47 Vital Signs Vital Signs - 24 hr 11/14/24 12:50 11/14/24 17:18 11/14/24 18:54 Temperature 96.8 F L 97 F L Pulse Rate 80 68 80 Respiratory Rate 18 18 Blood Pressure 111/83 167/89 H Pulse Oximetry 99 99 Oxygen Delivery Room Air 11/14/24 18:54 11/14/24 18:54 11/14/24 19:20 Temperature 98.2 F Pulse Rate 88 80 80 Respiratory Rate 18 18 16 Blood Pressure 178/78 H 178/78 H 180/91 H Pulse Oximetry 98 100 97 Oxygen Delivery Room Air 11/14/24 21:25 11/14/24 21:31 11/14/24 22:08 Temperature Pulse Rate 78 92 81 Respiratory Rate 15 16 Blood Pressure 162/90 H 156/96 H Pulse Oximetry 94 96 Oxygen Delivery Exam Narrative: General: Well-developed, thin elderly female supine in bed. Weight: 50.2 kg. BMI: 19.6. HEENT: PERRL, EOMI. Sclera anicteric. Oral mucosa moist. Neck: Supple. Faint left-sided carotid bruit. Respiratory: Lungs are clear to auscultation bilaterally. Cardiovascular: Regular rate and rhythm with S1-S2. Systolic murmurs heard at the right upper sternal border and apex. Gastrointestinal: Abdomen is soft, nontender, and nondistended with positive bowel sounds. Skin: Warm and dry. No rash or lesions on limited exam. Extremities: No cyanosis, clubbing, or edema. Radial and pedal pulses intact. Neurological: Alert and oriented. Cranial nerves 2-12 are grossly intact. Speech is clear. No facial asymmetry. Hand hairspring ii inspector and foot pushes equal bilaterally. Sensation intact throughout. Strength is equal in upper and lower extremities. No pronator drift. Psychiatric: Pleasant and cooperative with appropriate mood and affect. Seems to be a bit forgetful. H&P: Results Labs Labs: Short CBC 11/14/24 Range/Units 17:24 WBC 4.7 (4.5-10.0) K/mm3 Hgb 15.6 H (12.0-15.0) g/dL Hct 45.8 (37.0-47.0) % Plt Count 120 L (150-375) k/mm3 BMP 11/14/24 19:15 Sodium 135 L Potassium 3.9 Chloride 103 Carbon Dioxide 27 BUN 18 H Creatinine 1.00 Glucose 96 Calcium 9.8 Cardiac Enzymes 11/14/24 Range/Units 19:15 Troponin I < 0.012 (0.000-0.034) ng/mL Liver Function 11/14/24 Range/Units 19:15 Total Bilirubin 0.9 (0.2-1.3) mg/dL AST 32 (14-36) U/L ALT 20 (6-35) U/L Alkaline Phosphatase 67 (38-126) U/L Albumin 4.1 (3.5-5.1) g/dL Urine 11/14/24 Range/Units 19:14 Urine Color Yellow (Yellow) Urine Appearance Clear (Clear) Urine pH 5.5 (5.0-9.0) Ur Specific [place] 1.007 (1.001-1.035) Urine Protein Negative (Negative) mg/dL Urine Glucose (UA) Negative (Negative) mg/dL Impressions Head CT 11/14/24 16:16 IMPRESSION: 1. No acute intracranial findings. Chest X-Ray 11/14/24 16:24 IMPRESSION: 1. No focal infiltrate or effusion. Head/Neck CTA 11/14/24 20:55 IMPRESSION: 1. CTA neck. Percent stenosis per NASCET criteria is 70% on the left side. 10% on the right. 2. No intracerebral occlusion or significant stenosis seen. 3. Right posterior communicating artery continues as the posterior cerebral artery. Assessment and Plan Assessment and plan (1) Transient cerebral ischemia: Code(s): G45.9 - Transient cerebral ischemic attack, unspecified Status: Acute (2) Stenosis of left internal carotid artery: Code(s): I65.22 - Occlusion and stenosis of left carotid artery Status: Acute (3) Paroxysmal atrial fibrillation: Code(s): I48.0 - Paroxysmal atrial fibrillation Status: Acute (4) Thrombocytopenia: Code(s): D69.6 - Thrombocytopenia, unspecified Status: Acute (5) Hypertension: Code(s): I10 - Essential (primary) hypertension Status: Acute Plan The patient presented to the emergency department for evaluation of transient left-sided weakness as detailed in HPI. Labs, imaging, EKG, and all reports were personally reviewed. History is consistent was transient cerebral ischemia. She was hospitalized in April 2024 with similar symptoms and had an extensive workup done at that time. She has known left internal carotid artery stenosis which is now 70% by CTA today. Given her symptoms she could possibly considered for revascularization however at her age I am not certain she would be a candidate nor is it certain that she would want surgery. She is not on a statin which is the only other thing that would be recommended however at her age it is unclear whether the benefit would outweigh the risks. Check fasting lipids in a.m. She is already on apixaban for stroke prophylaxis and on a baby aspirin. Adding Plavix which showed her at increased risk for bleeding though will consult Neurology for their opinion. Brain MRI ordered. Echocardiogram with bubble study (negative) was done less than 6 months ago and will not be repeated. Blood pressures have room for improvement as well. Mild thrombocytopenia is stable on review previous labs. Her home medications will be reviewed and resumed as appropriate. Findings and treatment plan were discussed with the patient. Questions were solicited and answered to satisfaction. The patient's medical management will be taken over by the hospitalist team in a.m. Quality VTE Prophylaxis VTE prophylaxis: pharmacologic ordered (on apixaban) Hospitalist [facility] Advance Care Plan I have confirmed that the patient's Advanced Care Plan is present, code status is documented, or surrogate decision maker is listed in patient medical record.: Yes Medication Reconciliation I have utilized all available resources to obtain, update and review the patients current medications (includes all prescriptions, OTC, herbals, cannabis, and nutritional supplements).: Yes
[2024-11-15 00:19] VITALS: BMI 19.5
[2024-11-15 01:05] VITALS: BP 138/72; PULSE 76; RESP 20; TEMP 36.9; O2SAT 98
[2024-11-15 04:50] VITALS: BP 134/63; PULSE 86; RESP 18; TEMP 36.1; O2SAT 98
--- NOTE | 2024-11-15 05:20 | ADMGEN ---
This patient, Sharri Ramirez, was admitted to 3 [facility] Surg Room 304-01. Patient/family oriented to hospital policies and general routines including ID bracelet, bed and alarms, visiting hours, pain management, procedures, bathroom and other care routines, personal items, smoking policy, room service/diet, and visiting hours. Information on how to activate the Rapid Response Team has been discussed. Patient/Family are encouraged to report perceived risks to care and to ask questions if they do not understand what they are told or what they should do.
[2024-11-15 07:57] LABS: Cholesterol 139 mg/dL (0-200); HDL Direct 36 mg/dL; Triglycerides 117 mg/dL (<150)
[2024-11-15 08:00] VITALS: BP 131/75; PULSE 78; RESP 17; TEMP 36.2; O2SAT 98
[2024-11-15 08:08] LABS: LDL Cholesterol Direct 69 mg/dL
[2024-11-15 09:40] VITALS: O2SAT 97
--- NOTE | 2024-11-15 09:57 | P.PNIM_ITS ---
Progress Note: A&P Assessment and Plan (1) Transient cerebral ischemia: Code(s): G45.9 - Transient cerebral ischemic attack, unspecified Status: Acute (2) Stenosis of left internal carotid artery: Code(s): I65.22 - Occlusion and stenosis of left carotid artery Status: Acute (3) Paroxysmal atrial fibrillation: Code(s): I48.0 - Paroxysmal atrial fibrillation Status: Acute (4) Thrombocytopenia: Code(s): D69.6 - Thrombocytopenia, unspecified Status: Acute (5) Hypertension: Code(s): I10 - Essential (primary) hypertension Status: Acute Plan The patient presented to the emergency department for evaluation of transient left-sided weakness Labs, imaging, EKG, and all reports were personally reviewed. History is consistent was transient cerebral ischemia. She was hospitalized in April 2024 with similar symptoms and had an extensive workup done at that time. S he has known left internal carotid artery stenosis which is now 70% by CTA today. Given her symptoms she could possibly considered for revascularization however at her age I am not certain she would be a candidate nor is it certain that she would want surgery. She is not on a statin which is the only other thing that would be recommended however at her age it is unclear whether the benefit would outweigh the risks. Fasting lipids ordered in a.m. -PENDING still She is already on apixaban for stroke prophylaxis and on a baby aspirin. Adding Plavix which showed her at increased risk for bleeding though will consult Neurology for their opinion. Brain MRI ordered. Echocardiogram with bubble study (negative) was done less than 6 months ago and will not be repeated. Blood pressures have room for improvement as well. Mild thrombocytopenia is stable on review previous labs. Time Spent With Patient Time with patient: Greater than 35 minutes Subjective Date/time seen: 11/15/24 09:57 Interval history: Left-sided weakness. Narrative retrieved from H/P: This is an 89-year-old female with history of transient ischemic attack, paroxysmal atrial fibrillation on chronic anticoagulation, stenosis of the left internal carotid artery, hypertension, hyperlipidemia, dermatomyositis, and breast cancer presented to the emergency department for evaluation of left-sided weakness. The patient provides the following history. She reports feeling in her usual state of health when she got up this morning. After getting up in walking to the kitchen have breakfast she noticed that her left leg felt numb and weak and 4 mow med ?it felt ? and she had to sit down. Shortly thereafter she notice mild weakness and numbness in the left upper extremity. His symptoms completely resolved within 30 minutes and have not returned. She denies vertigo, visual changes, facial droop, difficulty speaking and swallowing, and current focal weakness and paresthesias. In the ED: Blood pressure has been as high as 180/91. She has been in rate controlled atrial fibrillation. Labs were significant for a WBC count 4.7, hemoglobin 15.6, platelet 120, sodium 135, BUN 18, creatinine 1.00, troponin less than 0.012. She tested negative for influenza, RSV, and COVID. Head CT showed no acute findings. CTA of the head and neck showed no intracerebral occlusion or significant stenosis, 70% left internal carotid artery stenosis, and 10% right internal carotid artery stenosis. Chest x-ray did not show any acute findings. She is being admitted in this setting for close monitoring and further workup. Pt is seen and examined Review of Systems Review of Systems: 12 systems were reviewed and are negativ e except for as per HPI. Exam Narrative: General: Well-developed, thin elderly female supine in bed. Weight: 50.2 kg. BMI: 19.6. HEENT: PERRL, EOMI. Sclera anicteric. Oral mucosa moist. Neck: Supple. Faint left-sided carotid bruit. Respiratory: Lungs are clear to auscultation bilaterally. Cardiovascular: Regular rate and rhythm with S1-S2. Systolic murmurs heard at the right upper sternal border and apex. Gastrointestinal: Abdomen is soft, nontender, and nondistended with positive bowel sounds. Skin: Warm and dry. No rash or lesions on limited exam. Extremities: No cyanosis, clubbing, or edema. Radial and pedal pulses intact. Neurological: Alert and oriented. Cranial nerves 2-12 are grossly intact. Speech is clear. No facial asymmetry. Hand legal word processor and foot pushes equal bilaterally. Sensation intact throughout. Strength is equal in upper and lower extremities. No pronator drift. Psychiatric: Pleasant and cooperative with appropriate mood and affect. Seems to be a bit forgetful. Objective Data Vital Signs Vital Signs: Vital Signs - 24 hr 11/14/24 12:50 11/14/24 17:18 11/14/24 18:54 Temperature 96.8 F L 97 F L Pulse Rate 80 68 80 Respiratory Rate 18 18 Blood Pressure 111/83 167/89 H Pulse Oximetry 99 99 Oxygen Delivery Room Air 11/14/24 18:54 11/14/24 18:54 11/14/24 19:20 Temperature 98.2 F Pulse Rate 88 80 80 Respiratory Rate 18 18 16 Blood Pressure 178/78 H 178/78 H 180/91 H Pulse Oximetry 98 100 97 Oxygen Delivery Room Air 11/14/24 21:25 11/14/24 21:31 11/14/24 22:08 Temperature Pulse Rate 78 92 81 Respiratory Rate 15 16 Blood Pressure 162/90 H 156/96 H Pulse Oximetry 94 96 Oxygen Delivery 11/14/24 22:58 11/15/24 01:05 11/15/24 04:50 Temperature 98.4 F 96.9 F L Pulse Rate 96 76 86 Respiratory Rate 14 20 18 Blood Pressure 133/66 138/72 134/63 Pulse Oximetry 98 98 98 Oxygen Delivery 11/15/24 08:00 11/15/24 09:40 Temperature 97.1 F L Pulse Rate 78 Respiratory Rate 17 Blood Pressure 131/75 Pulse Oximetry 98 97 Oxygen Delivery Room Air Intake/Output Intake/Output: Intake & Output 11/12/24 11/13/24 11/14/24 11/15/24 23:59 23:59 23:59 23:59 Intake Total 220 Balance 220 Meds/Results Radiology Results: ITS Impressions Head CT 11/14/24 16:16 IMPRESSION: No acute intracranial findings. Chest X-Ray 11/14/24 16:24 IMPRESSION: No focal infiltrate or effusion. Head/Neck CTA 11/14/24 20:55 IMPRESSION: 1. CTA neck. Percent stenosis per NASCET criteria is 70% on the left side. 10% on the right. 2. No intracerebral occlusion or significant stenosis seen. 3. Right posterior communicating artery continues as the posterior cerebral artery. Brain MRI 11/15/24 08:01 IMPRESSION: No acute abnormality seen. Advanced chronic microvascular ischemic change. Labs Labs: Laboratory Results - last 24 hr 11/14/24 11/14/24 11/14/24 17:16 17:24 19:14 WBC 4.7 RBC 5.09 Hgb 15.6 H Hct 45.8 MCV 90.0 MCH 30.6 MCHC 34.1 RDW 12.9 Plt Count 120 L MPV 11.5 H Immature Gran % (Auto) 0.4 Neut % (Auto) 56.8 Lymph % (Auto) 27.8 [place] % (Auto) 12.7 H Eos % (Auto) 1.9 Baso % (Auto) 0.4 Lymph # (Auto) 1.32 [place] # (Auto) 0.6 Eos # (Auto) 0.1 Baso # (Auto) 0.0 Abs Immat Gran (auto) 0.02 Absolute Neuts (auto) 2.7 Absolute Nucleated RBC 0.000 Nucleated RBC % 0.0 % Immature Plt Fraction 7.1 PT 15.8 H INR 1.2 APTT 27.6 Sodium Potassium Chloride Carbon Dioxide Anion Gap BUN Creatinine Estim Creat Clear Calc Estimated GFR Glucose POC Capillary Glucose 102 Calcium Magnesium Total Bilirubin AST ALT Alkaline Phosphatase Troponin I Total Protein Albumin Triglycerides Cholesterol LDL Cholesterol Direct HDL Direct Urine Color Yellow Urine Appearance Clear Urine pH 5.5 Ur Specific [place] 1.007 Urine Protein Negative Urine Glucose (UA) Negative Urine Ketones Negative Ur Blood (Man) Trace Urine Nitrate Negative Urine Bilirubin Negative Urine Urobilinogen 0.2 Leukocyte Esterase Rfl 2+ H Urine RBC 0-2 Urine WBC 21-50 H Ur Squamous Epith Cells None seen Urine Bacteria None seen Urine Casts 0-2 Influenza A (RT-PCR) Influenza B (RT-PCR) RSV (RT-PCR) SARS-CoV-2 RNA (RT-PCR) 11/14/24 11/15/24 19:15 07:22 WBC RBC Hgb Hct MCV MCH MCHC RDW Plt Count MPV Immature Gran % (Auto) Neut % (Auto) Lymph % (Auto) [place] % (Auto) Eos % (Auto) Baso % (Auto) Lymph # (Auto) [place] # (Auto) Eos # (Auto) Baso # (Auto) Abs Immat Gran (auto) Absolute Neuts (auto) Absolute Nucleated RBC Nucleated RBC % % Immature Plt Fraction PT INR APTT Sodium 135 L Potassium 3.9 Chloride 103 Carbon Dioxide 27 Anion Gap 5 BUN 18 H Creatinine 1.00 Estim Creat Clear Calc 27 Estimated GFR 52 L Glucose 96 POC Capillary Glucose Calcium 9.8 Magnesium 1.8 Total Bilirubin 0.9 AST 32 ALT 20 Alkaline Phosphatase 67 Troponin I < 0.012 Total Protein 7.0 Albumin 4.1 Triglycerides 117 Cholesterol 139 LDL Cholesterol Direct 69 HDL Direct 36 Urine Color Urine Appearance Urine pH Ur Specific [place] Urine Protein Urine Glucose (UA) Urine Ketones Ur Blood (Man) Urine Nitrate Urine Bilirubin Urine Urobilinogen Leukocyte Esterase Rfl Urine RBC Urine WBC Ur Squamous Epith Cells Urine Bacteria Urine Casts Influenza A (RT-PCR) Negative Influenza B (RT-PCR) Negative RSV (RT-PCR) Negative SARS-CoV-2 RNA (RT-PCR) Negative Quality VTE Prophylaxis VTE prophylaxis: pharmacologic ordered (on apixaban)
--- NOTE | 2024-11-15 11:37 | P.CONNEU_ITS ---
Assessment and Plan Assessment and plan (1) Transient cerebral ischemia: Code(s): G45.9 - Transient cerebral ischemic attack, unspecified Status: Acute (2) Paroxysmal atrial fibrillation: Code(s): I48.0 - Paroxysmal atrial fibrillation Status: Acute (3) Stenosis of left internal carotid artery: Code(s): I65.22 - Occlusion and stenosis of left carotid artery Status: Acute Plan 1. TIA 2. Underlying atrial fibrillation 3. Left internal carotid 70% stenosis 4. 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 Thrombocytopenia. Will continue or on apixaban. Considering the present treatment I agree echocardiogram would not be necessary, as well as she will not be a good candidate for endarterectomy at this stage. Once her status is stable over the next 24 to 48 hours she can be discharged with instructions and explanation of the present issues. Consult date: 11/15/24 HPI: Sharri Ramirez is a 89 year old femaleAdmitted to the hospital through the emergency room with the complaints of left-sided weakness noted around 5:00 a.m. involving the left lower extremity. Subsequently she went to breakfast and noted the numbness and weakness in her left upper extremity as well. She complained that her left lower extremity became and she was unable to even stand. The whole symptomatology lasted for [id number] she had no additional neurological symptoms such as visual difficulties difficulties in speech, she has been taking atorvastatin 40mg daily citalopram 20mg daily apixaban 2.5mg b.i.d. furosemide 20mg daily with spironolactone 25mg daily. She has notedly allergic to bend benazepril and the irbesartan. As per the review of the medical record patient carries the diagnosis of paroxysmal atrial fibrillation with history of TIA in the past and at present on chronic anticoagulation therapy, she has been documented to have the stenosis of left internal carotid artery, he does have ongoing history of hypertension, hyperlipidemia, and dermatomyositis as well in addition to the history of cancer of the breast. she does have ongoing history of anxiety with depression as well. She has never alcohol intake or substance user or a smoker and her medications list as mentioned before does include atorvastatin 20mg and apixaban 2.5mg twice a day. Since admission her CBC is normal, CMP with sodium of 135 and estimated GFR of 52 in addition to BUN 18, UA with 2+ leukocyte Estrace, and she is negative for all the common viral screening in the ER, initial CT scan of the head was negative for the bleed or tumor, but CTA documented 70% stenosis on the left side and 10% on the right side in addition to right posterior communicating artery continue as the posterior cerebral artery. Review of Systems 2 Review of Systems: All systems reviewed & are unremarkable except as noted in HPI and below PMFSH Past Medical History Medical History Stenosis of left internal carotid artery Paroxysmal atrial fibrillation Gastroesophageal reflux disease Esophageal dilatation (1999) Dermatomyositis Malignant melanoma (2009) Excised from right arm Migraines Breast cancer Essential hypertension Depression Anxiety Hyperlipidemia Surgical History Surgical History History of cataract extraction with lens replacement History of cholecystectomy History of hip surgery Right hip surgery at 9 years old at which time she required a blood transfusion History of colonoscopy with polypectomy History of classical section 6 para 7 History of partial mastectomy of right breast (2010) Family History Family History Sibling Acute myocardial infarction, Onset Age: 70 Mother Old age, Onset Age: 95 Father Parkinsons disease, Onset Age: 80 Sibling Acute myocardial infarction, Onset Age: 49 Tobacco abuse disorder Daughter Breast cancer Other Family history of malignant neoplasm of breast in first degree relative Social History Social History Social History: Surrogate medical decision maker: Marcello Ramirez, son. Code status: Do not resuscitate. Smoking status: Never smoker Second hand tobacco smoke exposure: No Alcohol intake: never Substance use: never Substance use type: does not use Do You Feel Safe in your Home?: Yes Lack of Transportation: No Lack of Food: Never True Current Housing: I Have Housing Concerned About Future Housing: No Difficulty Paying Gas/Electric Bills: No Difficulty Paying for Meds: No Currently Unemployed: No Education: Associate Degree Difficulty w/ Childcare or Family Care: No Additional living arrangements comments: Patient is . She lives in her own home and ambulates with a walker. She has 7 children Spiritual care concerns: Yes (Confucianism) Meds Home Medications and Allergies Home Medications ?Medication ?Instructions ?Recorded ?Confirmed ?Type acetaminophen 650 mg 650 mg PO Q8H PRN pain #7 tabs 09/26/20 11/15/24 Rx tablet,extended release (Tylenol Arthritis Pain) calcium carbonate 500 mg PO PRN PRN Heartburn 07/10/21 11/15/24 History citalopram 20 mg tablet 20 mg PO DAILY 07/10/21 11/15/24 History spironolactone 25 mg tablet 25 mg PO DAILY 07/10/21 11/15/24 History aspirin 81 mg chewable tablet 81 mg PO DAILY@0800 #30 tabs 07/13/21 11/15/24 Rx (Children's Aspirin) apixaban 2.5 mg tablet (Eliquis) 2.5 mg PO BID 05/17/24 11/15/24 History furosemide 40 mg tablet 20 mg PO DAILY 05/17/24 11/15/24 History famotidine 20 mg tablet (Acid 20 mg PO DAILY 11/15/24 11/15/24 History Controller) metoprolol tartrate 50 mg tablet 50 mg PO DAILY 11/15/24 11/15/24 History rosuvastatin 40 mg tablet 40 mg PO HS 11/15/24 11/15/24 History Allergies Allergy/AdvReac Type Severity Reaction Status Date / Time adhesive tape Allergy Unknown Unknown Verified 05/16/24 20:47 benazepril Allergy Unknown Unknown Verified 05/16/24 20:47 irbesartan Allergy Unknown Unknown Verified 05/16/24 20:47 Vital Signs Vital Signs - 24 hr 11/14/24 12:50 11/14/24 17:18 11/14/24 18:54 Temperature 36.0 C L 36.1 C L Pulse Rate 80 68 80 Respiratory Rate 18 18 Blood Pressure 111/83 167/89 H Pulse Oximetry 99 99 Oxygen Delivery Room Air 11/14/24 18:54 11/14/24 18:54 11/14/24 19:20 Temperature 36.8 C Pulse Rate 88 80 80 Respiratory Rate 18 18 16 Blood Pressure 178/78 H 178/78 H 180/91 H Pulse Oximetry 98 100 97 Oxygen Delivery Room Air 11/14/24 21:25 11/14/24 21:31 11/14/24 22:08 Temperature Pulse Rate 78 92 81 Respiratory Rate 15 16 Blood Pressure 162/90 H 156/96 H Pulse Oximetry 94 96 Oxygen Delivery 11/14/24 22:58 11/15/24 01:05 11/15/24 04:50 Temperature 36.9 C 36.1 C L Pulse Rate 96 76 86 Respiratory Rate 14 20 18 Blood Pressure 133/66 138/72 134/63 Pulse Oximetry 98 98 98 Oxygen Delivery 11/15/24 08:00 11/15/24 09:40 Temperature 36.2 C L Pulse Rate 78 Respiratory Rate 17 Blood Pressure 131/75 Pulse Oximetry 98 97 Oxygen Delivery Room Air Exam 2 Narrative: Examination today revealed her to be awake alert very pleasant and cooperative, head normocephalic with no bruit, ear nose throat examination normal, neck supple with left-sided carotid bruit, heart regular with with murmur, abdomen soft nontender with normal bowel sounds, his skin clear, extremities normal with pulsations intact, neurologically she is awake alert oriented x3, his speech not dysphasic not dysarthric not dysphonic, pupils round regular feels the vision full extraocular movements full face symmetrical tongue midline motor examination revealed her to have fairly normal strength in upper and lower extremities without evidence of focal drift against gravity and without evidence of any abnormal cogwheeling or lead pipe rigidity deep tendon reflexes symmetrical plantars are downgoing. Results Labs 11/14/24 17:24 11/14/24 19:15 Labs: Short CBC 11/14/24 Range/Units 17:24 WBC 4.7 (4.5-10.0) K/mm3 Hgb 15.6 H (12.0-15.0) g/dL Hct 45.8 (37.0-47.0) % Plt Count 120 L (150-375) k/mm3 BMP 11/14/24 19:15 Sodium 135 L Potassium 3.9 Chloride 103 Carbon Dioxide 27 BUN 18 H Creatinine 1.00 Glucose 96 Calcium 9.8 Cardiac Enzymes 11/14/24 Range/Units 19:15 Troponin I < 0.012 (0.000-0.034) ng/mL Liver Function 11/14/24 Range/Units 19:15 Total Bilirubin 0.9 (0.2-1.3) mg/dL AST 32 (14-36) U/L ALT 20 (6-35) U/L Alkaline Phosphatase 67 (38-126) U/L Albumin 4.1 (3.5-5.1) g/dL Urine 11/14/24 Range/Units 19:14 Urine Color Yellow (Yellow) Urine Appearance Clear (Clear) Urine pH 5.5 (5.0-9.0) Ur Specific [place] 1.007 (1.001-1.035) Urine Protein Negative (Negative) mg/dL Urine Glucose (UA) Negative (Negative) mg/dL
[2024-11-15 12:00] VITALS: BP 113/73; PULSE 95; RESP 16; TEMP 36; O2SAT 97
--- NOTE | 2024-11-15 14:14 | PM.DS ---
DS: Admitting Diagnosis Discharge Date 11/15 Admitting Diagnosis transient one sided weakness DS: Discharge Diagnosis Discharge Diagnosis (1) Transient cerebral ischemia: Code(s): G45.9 - Transient cerebral ischemic attack, unspecified Status: Acute (2) Stenosis of left internal carotid artery: Code(s): I65.22 - Occlusion and stenosis of left carotid artery Status: Acute (3) Paroxysmal atrial fibrillation: Code(s): I48.0 - Paroxysmal atrial fibrillation Status: Acute (4) Thrombocytopenia: Code(s): D69.6 - Thrombocytopenia, unspecified Status: Acute (5) Hypertension: Code(s): I10 - Essential (primary) hypertension Status: Acute Plan DS: Summary Hospital Course Hospital Course: The patient presented to the emergency department for evaluation of transient left-sided weakness Labs, imaging, EKG, and all reports were personally reviewed. History is consistent was transient cerebral ischemia. She was hospitalized in April 2024 with similar symptoms and had an extensive workup done at that time. She has known left internal carotid artery stenosis which is now 70% by CTA today. Given her symptoms she could possibly considered for revascularization however at her age I am not certain she would be a candidate nor is it certain that she would want surgery. She is not on a statin which is the only other thing that would be recommended however at her age it is unclear whether the benefit would outweigh the risks. Fasting lipids ordered in a.m. -PENDING still She is already on apixaban for stroke prophylaxis and on a baby aspirin. Adding Plavix which showed her at increased risk for bleeding though will consult Neurology for their opinion. Brain MRI ordered. Echocardiogram with bubble study (negative) was done less than 6 months ago and will not be repeated. Blood pressures have room for improvement as well. Mild thrombocytopenia is stable on review previous labs. Neurology saw her: TIA 2. Underlying atrial fibrillation 3. Left internal carotid 70% stenosis 4. 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 Thrombocytopenia. Will continue or on apixaban. Considering the present treatment I agree echocardiogram would not be necessary, as well as she will not be a good candidate for endarterectomy at this stage. Once her status is stable over the next 24 to 48 hours she can be discharged with instructions and explanation of the present issues. She is insisting on being discharged home and doesn't want to stay any longer for observations. Pt is stable - no neuro deficit noted on exam- and will be discharged later tonight with a close f/u with PCP. Time Spent with Patient Time attestation: Total time spent providing and/or coordinating discharge services: Exam Narrative: General: Well-developed, thin elderly female supine in bed. Weight: 50.2 kg. BMI: 19.6. HEENT: PERRL, EOMI. Sclera anicteric. Oral mucosa moist. Neck: Supple. Faint left-sided carotid bruit. Respiratory: Lungs are clear to auscultation bilaterally. Cardiovascular: Regular rate and rhythm with S1-S2. Systolic murmurs heard at the right upper sternal border and apex. Gastrointestinal: Abdomen is soft, nontender, and nondistended with positive bowel sounds. Skin: Warm and dry. No rash or lesions on limited exam. Extremities: No cyanosis, clubbing, or edema. Radial and pedal pulses intact. Neurological: Alert and oriented. Cranial nerves 2-12 are grossly intact. Speech is clear. No facial asymmetry. 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 Sensation intact throughout. Strength is equal in upper and lower extremities. No pronator drift. Psychiatric: Pleasant and cooperative with appropriate mood and affect. Seems to be a bit forgetful. DS: Data Data Completed and Pending Completed studies during hospitalization: brain mri, head ct, chest xray Labs on day of discharge: Labs from last 24 hours 11/15/24 11/14/24 11/14/24 07:22 19:15 19:14 WBC RBC Hgb Hct MCV MCH MCHC RDW Plt Count MPV Immature Gran % (Auto) Neut % (Auto) Lymph % (Auto) [place] % (Auto) Eos % (Auto) Baso % (Auto) Lymph # (Auto) [place] # (Auto) Eos # (Auto) Baso # (Auto) Abs Immat Gran (auto) Absolute Neuts (auto) Absolute Nucleated RBC Nucleated RBC % % Immature Plt Fraction PT INR APTT Sodium 135 L Potassium 3.9 Chloride 103 Carbon Dioxide 27 Anion Gap 5 BUN 18 H Creatinine 1.00 Estim Creat Clear Calc 27 Estimated GFR 52 L Glucose 96 POC Capillary Glucose Calcium 9.8 Magnesium 1.8 Total Bilirubin 0.9 AST 32 ALT 20 Alkaline Phosphatase 67 Troponin I < 0.012 Total Protein 7.0 Albumin 4.1 Triglycerides 117 Cholesterol 139 LDL Cholesterol Direct 69 HDL Direct 36 Urine Color Yellow Urine Appearance Clear Urine pH 5.5 Ur Specific [place] 1.007 Urine Protein Negative Urine Glucose (UA) Negative Urine Ketones Negative Ur Blood (Man) Trace Urine Nitrate Negative Urine Bilirubin Negative Urine Urobilinogen 0.2 Leukocyte Esterase Rfl 2+ H Urine RBC 0-2 Urine WBC 21-50 H Ur Squamous Epith Cells None seen Urine Bacteria None seen Urine Casts 0-2 Influenza A (RT-PCR) Negative Influenza B (RT-PCR) Negative RSV (RT-PCR) Negative SARS-CoV-2 RNA (RT-PCR) Negative 11/14/24 11/14/24 17:24 17:16 WBC 4.7 RBC 5.09 Hgb 15.6 H Hct 45.8 MCV 90.0 MCH 30.6 MCHC 34.1 RDW 12.9 Plt Count 120 L MPV 11.5 H Immature Gran % (Auto) 0.4 Neut % (Auto) 56.8 Lymph % (Auto) 27.8 [place] % (Auto) 12.7 H Eos % (Auto) 1.9 Baso % (Auto) 0.4 Lymph # (Auto) 1.32 [place] # (Auto) 0.6 Eos # (Auto) 0.1 Baso # (Auto) 0.0 Abs Immat Gran (auto) 0.02 Absolute Neuts (auto) 2.7 Absolute Nucleated RBC 0.000 Nucleated RBC % 0.0 % Immature Plt Fraction 7.1 PT 15.8 H INR 1.2 APTT 27.6 Sodium Potassium Chloride Carbon Dioxide Anion Gap BUN Creatinine Estim Creat Clear Calc Estimated GFR Glucose POC Capillary Glucose 102 Calcium Magnesium Total Bilirubin AST ALT Alkaline Phosphatase Troponin I Total Protein Albumin Triglycerides Cholesterol LDL Cholesterol Direct HDL Direct Urine Color Urine Appearance Urine pH Ur Specific [place] Urine Protein Urine Glucose (UA) Urine Ketones Ur Blood (Man) Urine Nitrate Urine Bilirubin Urine Urobilinogen Leukocyte Esterase Rfl Urine RBC Urine WBC Ur Squamous Epith Cells Urine Bacteria Urine Casts Influenza A (RT-PCR) Influenza B (RT-PCR) RSV (RT-PCR) SARS-CoV-2 RNA (RT-PCR) Discharge Plan Discharge Attending physician on discharge: Derek Garza Consulting providers: Kishan Lozano Discharging Clinician: Latonia Carrillo Patient Disposition: Home, Self-Care Activity: march shower Diet: heart healthy Discharge Instructions: You were admitted for evaluation of transient left-sided weakness roy were hospitalized in April 2024 with similar symptoms and had an extensive workup done at that time. There is left internal carotid artery stenosis which is now 70% per imaging. Given your symptoms, you could possibly be considered for revascularization however at your age it is not certain you would be a candidate nor is it certain that you would want surgery. That is something you can discuss with pcp and/or Neuro as an outpt. It might be beneficial to take cholesterol medication but it comes with side effects- so please discuss this primary prevention therapy with your PCP (primary care provider) once you schedule a follow up within 1-2 weeks. NO other changes were made to your home meds You are already on apixaban for stroke prophylaxis and on a baby aspirin- please continue that. It was advisable to watch you overnight- but since you wanted to go home- you were discharged with a close follow up with PCP. Please return to ed if your symptoms return and/or worsen. Patient Instructions: Antibiotic Form Patient Language: Uzbek Stand Alone Forms: General Discharge Information Follow-up/Referrals: Giovany,Sven Lawler MD [Primary Care Provider] - 1 Week Discharge Medications: Continued acetaminophen [Tylenol Arthritis Pain] 650 mg tablet extended release 650 mg PO Q8H PRN (Reason: pain) Qty: 7 0RF Eliquis 2.5 mg tablet 2.5 mg PO BID furosemide 40 mg tablet 20 mg PO DAILY famotidine [Acid Controller] 20 mg tablet 20 mg PO DAILY rosuvastatin 40 mg tablet 40 mg PO HS metoprolol tartrate 50 mg Tablet 50 mg PO DAILY spironolactone 25 mg tablet 25 mg PO DAILY citalopram 20 mg tablet 20 mg PO DAILY calcium carbonate 195 mg calcium (500 mg) Tablet,Chewable 500 mg PO PRN PRN (Reason: Heartburn) aspirin [Children's Aspirin] 81 mg Tablet,Chewable 81 mg PO DAILY@0800 Qty: 30 0RF Date of admission: 11/14/24 21:50 Primary Care Provider: Giovany*Sven López Admitting Provider: Maddie Powell Attending physician on admission: Maddie Powell Condition: Stable Quality VTE Prophylaxis VTE prophylaxis: pharmacologic ordered (on apixaban) Hospitalist MIPS Heart Failure (Exclusion) Patient has history of Heart Transplant or Left Ventricular Assistive Device?: No IF YES, STOP HERE Heart Failure (Qualifier) Patient has current or prior documentation of LVEF less than or equal to 40%, or mod/servere depressed LVSF?: No IF NO, STOP HERE
[2024-11-15 16:00] VITALS: BP 128/76; PULSE 81; RESP 17; TEMP 36.4; O2SAT 99
== END 2024-11-15 17:25 | disposition home or self-care (01) ==
LOC: ANHED 21:59 → ANH3MEDSUR 11-15 01:19
PROVIDERS: Physician Assistant; Admitting Provider Internal Medicine; Emergency Provider Emergency Medicine; PCP Internal Medicine; Visit Provider Internal Medicine
DX: G45.9 Transient cerebral ischemic attack, unspecified (principal); R29.700 NIHSS score 0; I65.22 Occlusion and stenosis of left carotid artery; I48.0 Paroxysmal atrial fibrillation; D69.6 Thrombocytopenia, unspecified; I10 Essential (primary) hypertension; E78.5 Hyperlipidemia, unspecified; K21.9 Gastro-esophageal reflux disease without esophagitis; G43.909 Migraine, unspecified, not intractable, without status migrainosus; F32.A Depression, unspecified; F41.9 Anxiety disorder, unspecified; M33.13 Other dermatomyositis without myopathy; Z66 Do not resuscitate; Z20.822 Contact with and (suspected) exposure to COVID-19; Z79.01 Long term (current) use of anticoagulants; Z79.899 Other long term (current) drug therapy; Z85.3 Personal history of malignant neoplasm of breast; Z85.820 Personal history of malignant melanoma of skin; Z90.49 Acquired absence of other specified parts of digestive tract; Z96.1 Presence of intraocular lens; Z98.49 Cataract extraction status, unspecified eye
CPT/HCPCS: 36415; 70450; 70496; 70498; 70551; 71045; 80053; 80061; 81001; 82948; 83735; 84484; 85025; 85055; 85610; 85730; 87086; 87637; 93005; 99285; G0378; Q9967

== ENCOUNTER 2025-07-03 12:23 | Emergency (ER) | payer MEDICARE, SELFPAY ==
--- NOTE | ~2025-07-03 | CT_ITS ---
EXAM: CT brain wo con - 07/03/2025 12:35 CDT History: 89 years old Female with weakness COMPARISON: None available. PROCEDURE: CT of the head without contrast. Axial, sagittal and coronal reformatted planes were eliseo luated. Automatic exposure control was used for this study. FINDINGS: BRAIN PARENCHYMA: No acute hemorrhage. No mass effect or herniation. Hess-white matter differentiatio n is maintained. Mild chronic volume loss. Scattered hypodensities in subcortical and periventricular white matter, likely representing chronic microvascular ischemic changes in this age group. Atherosc lerotic calcification of the intracranial vessels is noted. VENTRICLES/ EXTRA-AXIAL SPACES: No hydrocephalus or extra-axial fluid collection. EXTRACRANIAL STRUCTURES: No calvarial fracture. IMPRESSION: No evidence for acute intracranial hemorrhage or calvarial fracture. Reviewed, dictated and finalized at location A.
--- NOTE | ~2025-07-03 | XR_ITS ---
Clinical history:Weakness EXAM:X-ray chest one view TECHNIQUE:AP sitting frontal image of the chest was obtained Comparisons:11/14/2024 FINDINGS: Cardiomediastinal silhouette is enlarged, unchanged. No pneumothorax. No pleural effusion. No free ai r under the diaphragm. Small opacities in the mid and lower lungs. IMPRESSION: Small opacities in the mid and lower lungs. Differential includes atelectasis/scarring or infiltrates . Reviewed, dictated and finalized at location A. IMPRESSION: Small opacities in the mid and lower lungs. Differential includes atelectasis/s carring or infiltrates.
[2025-07-03 12:25] VITALS: BP 186/94; PULSE 79; RESP 16; TEMP 36.5; O2SAT 98
[2025-07-03 13:20] LABS: Hematocrit 42.1 % (37.0-47.0); Hemoglobin 14.0 g/dL (12.0-15.0); Immature Granulocyte Percent A 0.2 % (0-0.5); Immature Platelet Fraction Pct 5.5 % (0.9-11.2); Lymphocytes Absolute Auto 1.15 K/mm3 (0.9-3.2); Mean Corpuscular HGB Conc 33.3 g/dl (32-36); Mean Corpuscular Hemoglobin 30.6 pg (26-34); Mean Corpuscular Volume 92.1 fl (80-100); Nucleated Red Blood Cells Absolute Auto 0.000 K/mm3 (0.0-0.012); Nucleated Red Blood Cells Perc 0.0 % (0.0-0.2); Platelet Count Result 123 k/mm3 (150-375); Red Blood Count 4.57 M/mm3 (4.2-5.4); White Blood Count 4.5 K/mm3 (4.5-10.0)
[2025-07-03 13:33] LABS: Alanine Aminotransferase 19 U/L (6-35); Albumin Level 4.1 g/dL (3.5-5.1); Alkaline Phosphatase 51 U/L (38-126); Anion Gap 10 mmol/L (4-12); Aspartate Amino Transferase 32 U/L (14-36); Bilirubin,Total 0.9 mg/dL (0.2-1.3); Blood Urea Nitrogen 21 mg/dL (7-17); Calcium 9.6 mg/dL (8.4-10.2); Carbon Dioxide 22 mmol/L (22-30); Chloride 101 mmol/L (98-107); Estimated CRCL calculation 23 ml/min; Estimated Glomerular Filt Rate 41; Glucose 99 mg/dL (65-110); INR 1.5; Potassium 3.7 mmol/L (3.4-5.0); Prothrombin Time 18.0 Seconds (11.1-14.7); Sodium 133 mmol/L (137-145); Total Protein 6.7 g/dL (6.3-8.2)
[2025-07-03 13:36] LABS: Partial Thromboplastin Time 29.8 Seconds (22.3-36.8)
[2025-07-03 13:40] LABS: Troponin I < 0.012 ng/mL (0.000-0.034)
--- OUTSIDE RECORDS SUMMARY | 2025-07-03 14:35 | XMS_ITS | Continuity of Care Document ---
Author Organization [facility] Address [address] [place] [address] Phone Care Team Providers Care Circulator Name Role Phone Salgado OD, Gera Unavailable Unavailable Procedures Procedure Date Visual Field Examination-Professional No Visual Field Examination(s) Eye Exam & Treatment Refraction Office/outpatient Visit, Est Post-op Follow-up Visit Post-op Follow-up Visit Post-op Follow-up Visit Remove Cataract, Insert Lens PreOp Assessment Performed Presbyopia Correcting IOL Eye Exam & Treatment IOLMaster Cataract Kit SEC MV Tax - Medical Script Printed/Phoned Pt Requ Or Pharm N ot Availab Office/outpatient Visit, Est No Script Visual Field Examination-Professional No Visual Field Examination(s) Eye Exam & Treatment Refraction Office/outpatient Visit, Est Visual Field Examination-Professional Au Visual Field Examination(s) Eye Exam & Treatment Refraction Visual Functional Status Assessed Eye Exam Established Pt Advance Directives Directive Yes / No Effective Date File Name No Information Encounters Encounter Description Practice Location Reason(s) For Visit Diagnoses Date Provider Providers Copied on Encounter [facility], [id number] [place] [address] [address], [place], [place], [id number], [place] tel:[phone] [facility] No Information Nov-0 5-201 0 Salgado OD Gera. [address] [place] [address] Center , [address], [place], [place], [facility], . tel:[phone] Referring Provider: Gera Salgado OD A, [address] [place] [address] [address], [place], [facility]. tel:[phone] [facility], [address] [place] [address] [address], [place], [place], [id number], [place] tel:[phone] [facility] No Information Nov-0 1-201 0 Salgado OD Gera. [address] [place] [address] Center , [address], [place], [facility], [place]. tel:[phone] Referring Provider: Gera Salgado OD A, [address] [place] [address] [address], [place], [facility]. tel:[phone] [facility], [address] [place] [address] [address], [place], [place], [id number], [place] tel:[phone] [facility] No Information Sep-2 3-201 0 Salgdao OD Gera. [address] [place] [address] , [address], [place], [facility], [place]. tel:[phone] Office/outpat ient Visit, Est [facility], [address] [place] [address] [address], [place], [place], [address], [place] tel:[phone] [facility] No Information Feb-0 4-201 0 Krishnasamy Cooper. [address] [place] [address] [address], [place], [facility], [place]. tel:[phone] [facility], [address], [place], [place], [address], [place] tel:[phone] [facility] No Information Julian-0 1-200 9 Krishnasamy Cooper. [address] [facility] [address], [place], [address], [place]. tel:[phone] [facility], [address], [place], [place], [address], [place] tel:[phone] [facility] No Information May-2 9-200 9 Krishnasamy Cooper. [address] [facility] [address], [place], [address], [place]. tel:[phone] [facility], [address], [place], [place], [address], [place] tel:[phone] [facility] No Information March-2 2-200 9 Krishnasamy Cooper. [address] [facility] [address], [place], [address], [place]. tel:[phone] [facility], [address], [place], [place], [address], [place] tel:[phone] [facility] No Information March-2 1-200 9 Krishnasamy Cooper. [address] [facility] [address], [place], [address], [place]. tel:[phone] [facility], [address], [place], [place], [address], [place] tel:[phone] [facility] No Information May-0 7-200 9 Krishnasamy Cooper. [address] [facility] [address], [place], [address], [place]. tel:[phone] Referring Provider: Cooper ambriz, [address] [place] [address] [address], [place], [address]. tel:[phone] Office/outpat ient Visit, [facility], [address], [place], [place], [address], [place] tel:[phone] [facility] No Information May-0 1-200 9 Salgado OD Gera. [address] , [address], [place], [facility], [place]. tel:[phone] [facility], [address] [place] [address] [address], [place], [place], [address], [place] tel:[phone] [facility] No Information Nov-0 7-200 8 Salagdo OD Gera. [address] , [address], [place], [facility], [place]. tel:[phone] Referring Provider: Gera Salgado OD A, [facility] [address], [place], [facility]. tel:[phone] [facility], [address] [place] [address] [address], [place], [place], [address], [place] tel:[phone] [facility] No Information Oct-3 1-200 8 Salgado OD Gera. [address] , [address], [place], [facility], [place]. tel:[phone] Referring Provider: Gera Salgado OD A, [facility] [address], [place], [facility]. tel:[phone] [facility], [address] [place] [address] [address], [place], [place], [address], [place] tel:[phone] [facility] No Information Aug-2 8-200 8 Salgado OD Gera. [facility] [address] , [address], [place], [address], [place]. tel:[phone] Office/outpat ient Visit, Est [facility], [address] [place] [address] [address], [place], [place], [address], [place] tel:[phone] [facility] No Information May-0 1-200 8 Salgado OD Gera. [address] , [address], [place], [facility], [place]. tel:[phone] [facility], [address] [place] [address] [address], [place], [place], [address], tel:[phone] [facility] No Information Jun-2 1-200 7 Salgado OD Gera. [address] [facility] [address], [address], [place], [facility], . tel:[phone] Referring Provider: Gera Salgado OD A, [address], [place], [facility]. tel:[phone] [facility], [address] [place] [address] [address], [place], [place], [id number], tel:[phone] [facility] No Information Jun-2 0-200 7 [facility] OD [facility]era. [facility] [address], [place], [facility], . tel:[phone] Referring Provider: Gera [facility]gado OD A, [facility] [address], [place], [facility]. tel:[phone] [facility], [address] [place] [address] [address], [place], [place], [address], tel:[phone] [facility] No Information 1 6-200 7 Salgado OD Gera. [facility] [address], [place], [facility], [place]. tel:[phone] [facility], [address] [place] [address] [address], [place], [place], [address], [place] tel:[phone] [facility] No Information 5-200 7 Salgado OD Gera. [facility] [address] [address], [address], [place], [facility], [place]. tel:[phone] Family History Family Member Type Diagnosis Age At Onset No Information Payers Payer name Insurance type Covered libertarian ID Authormyraa amanda(s) Medicare RR MB [id number] Social History Type Description Quantity Date Captured Comments Sex Female Smoking Status No Information Chief Complaint And Reason For Visit No Information Reason For Referral Reason For Referral No Information History Of Present Illness Encounter Date Complaint History Of Prese nt Illness No Information Functional Status Date Functional Assessmen t No Information Instructions Date Instruction Additional Infor mation No Information Assessments Type Assessment Date No Information Patient Care Teams Name Effective Dates (start - stop) Status Members No Information
--- NOTE | 2025-07-03 15:04 | ECG_ITS ---
Test Date: 2025-07-03 12:28:19 Measurements Intervals [place] Rate: 78 P: 0 MA: 0 QRS: 38 QRSD: 98 T: -8 QT: 384 QTc: 439 Interpretive Statements ATRIAL FIBRILLATION NONSPECIFIC ST & T-WAVE ABNORMALITY- DIFFUSE LEADS BASELINE ARTIFACT- I, II, III, AVR, AVL, AVF, V1-V6 ABNORMAL ECG Compared to ECG 11/14/2024 17:18:15 NO SIGNIFICANT CHANGE Electronically Signed On 07-03-2025 15:11:24 CDT by Alden Mason D.O.
--- NOTE | 2025-07-03 15:04 | ED.WEAKNESS ---
HPI - Weakness General Chief complaint: Weakness Stated complaint: WEAKNESS Time Seen by Provider: 07/03/25 13:16 Source: patient, family, RN notes reviewed and old records reviewed Mode of arrival: EMS Limitations: no limitations History of Present Illness HPI Narrative: This is an 89 year old female with history of TIA who presents for evaluatin of weakness. Patient states that she was sitting in a chair and she could not move. She reports her left hand was numb and she had weakness to her left side. Her neighbor came over and called 911 for her. She states after she got into the ambulance her symptoms resolved. She denies any symptoms at this time. Her son states 2 weeks ago patient had another episode of left side weakness that resolved spontaneously. MD Complaint: focal weakness and numbness Duration: intermittent Location: LUE Related Data Home Medications ?Medication ?Instructions ?Recorded ?Confirmed ?Last Taken ?Type calcium carbonate 500 mg PO PRN PRN Heartburn 07/10/21 11/15/24 11/14/24 08:00 History citalopram 20 mg tablet 20 mg PO DAILY 07/10/21 11/15/24 11/14/24 08:00 History spironolactone 25 mg tablet 25 mg PO DAILY 07/10/21 11/15/24 11/14/24 08:00 History apixaban 2.5 mg tablet (Eliquis) 2.5 mg PO BID 05/17/24 11/15/24 11/14/24 08:00 History furosemide 40 mg tablet 20 mg PO DAILY 05/17/24 11/15/24 11/14/24 08:00 History famotidine 20 mg tablet (Acid 20 mg PO DAILY 11/15/24 11/15/24 11/14/24 08:00 History Controller) metoprolol tartrate 50 mg tablet 50 mg PO DAILY 11/15/24 11/15/24 11/14/24 08:00 History rosuvastatin 40 mg tablet 40 mg PO HS 11/15/24 11/15/24 11/13/24 20:00 History Allergies Allergy/AdvReac Type Severity Reaction Status Date / Time adhesive tape Allergy Unknown Unknown Verified 05/16/24 20:47 benazepril Allergy Unknown Unknown Verified 05/16/24 20:47 irbesartan Allergy Unknown Unknown Verified 05/16/24 20:47 [facility] Past Medical History Medical History Stenosis of left internal carotid artery Paroxysmal atrial fibrillation Gastroesophageal reflux disease Esophageal dilatation (1999) Dermatomyositis Malignant melanoma (2009) Excised from right arm Migraines Breast cancer Essential hypertension Depression Anxiety Hyperlipidemia Surgical History Surgical History History of cataract extraction with lens replacement History of cholecystectomy History of hip surgery Right hip surgery at 9 years old at which time she required a blood transfusion History of colonoscopy with polypectomy History of classical section 6 para 7 History of partial mastectomy of right breast (2010) Family History Family History Sibling Acute myocardial infarction, Onset Age: 70 Mother Old age, Onset Age: 95 Father Parkinsons disease, Onset Age: 80 Sibling Acute myocardial infarction, Onset Age: 49 Tobacco abuse disorder Daughter Breast cancer Other Family history of malignant neoplasm of breast in first degree relative Social History Social History Social History: Surrogate medical decision maker: Marcello Ramirez, bala. Code status: Do not resuscitate. Smoking status: Never smoker Second hand tobacco smoke exposure: No Alcohol intake: never Substance use: never Substance use type: does not use Do You Feel Safe in your Home?: Yes Lack of Transportation: No Lack of Food: Never True Current Housing: I Have Housing Concerned About Future Housing: No Difficulty Paying Gas/Electric Bills: No Difficulty Paying for Meds: No Currently Unemployed: No Education: Associate Degree Difficulty w/ Childcare or Family Care: No Additional living arrangements comments: Patient is . She lives in her own home and ambulates with a walker. She has 7 children Spiritual care concerns: Yes ([place]) Exam Const: General: no acute distress and alert Nutritional Appearance: thin Orientation/consciousness: patient oriented x3 HENMT: Head: normal to inspection Ears: external ears normal Eyes: Pupils: Equal, round and reactive pupils present EOM: EOMs intact bilaterally Chest: Chest palpation & inspection: normal inspection of the chest Resp: Effort & Inspection: normal respiratory effort Auscultation: clear to auscultation bilaterally Cardio: Rate: regular rate Rhythm: regular rhythm Heart sounds: Murmur heart sound present GI: GI Palp: Yes Soft to palpation, No Tenderness to palpation present (GI), No Guarding due to palpation present (GI) and No Rigid due to palpation Auscultation: normal bowel sounds Skin: General skin exam: normal color Rashes: no rashes Neuro: General: patient oriented x3, moves all extremities, no meningeal signs, no focal motor deficits and CN's II-XI intact bilaterally Cranial nerves: Yes Nystagmus not present Speech: normal speech Extrem: General: normal to inspection Psych: Mental Status: mental status grossly normal Affect: normal affect Attitude: cooperative Course Reevaluation(s) Reevaluation #1: I Reviewed with patient and son that neurologist feels patient can be discharged and assessed as outpatient. They feels comfortable with discharge home. Date: 07/03/25 Time: 16:11 Consultations Consultation #1: I Spoke with Dr. Duke who states patient can follow up with him as outpatient. Given patient is back to normal and she has had multiple evaluations for TIA she can follow up as outpatient. She is on maximum therapy with eliquis and statin. Date: 07/03/25 Time: 16:09 Vital Signs Vital signs: Vital Signs Temperature 97.7 F 07/03/25 12:25 Pulse Rate 79 07/03/25 12:25 Respiratory Rate 16 07/03/25 12:25 Blood Pressure 186/94 H 07/03/25 12:25 Pulse Oximetry 98 07/03/25 12:25 Oxygen Delivery Room Air 07/03/25 12:25 Temperature 97.7 F 07/03/25 12:25 Pulse Rate 75 07/03/25 15:09 Respiratory Rate 20 07/03/25 15:09 Blood Pressure 177/99 H 07/03/25 15:09 Pulse Oximetry 99 07/03/25 15:09 Oxygen Delivery Room Air 07/03/25 12:25 MDM - Weakness Differential Diagnosis Differential diagnosis: Likely anemia, hypoglycemia, dehydration and other (TIA, ) Medical Records Attestation: I reviewed the patient's medical records. Lab Data Attestation: I reviewed the patient's lab results. 07/03/25 13:01 07/03/25 13:01 Labs: Lab Results 07/03/25 07/03/25 Range/Units 12:55 13:01 WBC 4.5 (4.5-10.0) K/mm3 RBC 4.57 (4.2-5.4) M/mm3 Hgb 14.0 (12.0-15.0) g/dL Hct 42.1 (37.0-47.0) % MCV 92.1 (80-100) fl MCH 30.6 (26-34) pg MCHC 33.3 (32-36) g/dl RDW 13.2 (11.5-14.5) % Plt Count 123 L (150-375) k/mm3 MPV 10.8 H (7.4-10.4) fl Immature Gran % (Auto) 0.2 (0-0.5) % Neut % (Auto) 56.4 (45.5-73.1) % Lymph % (Auto) 25.6 (18.3-44.2) % [place] % (Auto) 14.7 H (2.6-8.5) % Eos % (Auto) 2.7 (0-4.4) % Baso % (Auto) 0.4 (0.2-1.2) % Lymph # (Auto) 1.15 (0.9-3.2) K/mm3 [place] # (Auto) 0.7 H (0.1-0.6) K/mm3 Eos # (Auto) 0.1 (0-0.3) K/mm3 Baso # (Auto) 0.0 (0.0-0.1) K/mm3 Abs Immat Gran (auto) 0.01 (0.00-0.031) K/mm3 Absolute Neuts (auto) 2.5 (1.3-6.7) K/mm3 Absolute Nucleated RBC 0.000 (0.0-0.012) K/mm3 Nucleated RBC % 0.0 (0.0-0.2) % % Immature Plt Fraction 5.5 (0.9-11.2) % PT 18.0 H (11.1-14.7) Seconds INR 1.5 APTT 29.8 (22.3-36.8) Seconds Sodium 133 L (137-145) mmol/L Potassium 3.7 (3.4-5.0) mmol/L Chloride 101 (98-107) mmol/L Carbon Dioxide 22 (22-30) mmol/L Anion Gap 10 (4-12) mmol/L BUN 21 H (7-17) mg/dL Creatinine 1.23 H (0.7-1.0) mg/dL Estim Creat Clear Calc 23 ml/min Estimated GFR 41 L (59 - ) Glucose 99 (65-110) mg/dL POC Capillary Glucose 104 (65-105) mg/dl Calcium 9.6 (8.4-10.2) mg/dL Total Bilirubin 0.9 (0.2-1.3) mg/dL AST 32 (14-36) U/L ALT 19 (6-35) U/L Alkaline Phosphatase 51 (38-126) U/L Troponin I < 0.012 (0.000-0.034) ng/mL Total Protein 6.7 (6.3-8.2) g/dL Albumin 4.1 (3.5-5.1) g/dL Imaging Data Radiologist's impression: ITS Impressions Head CT 07/03/25 12:46 IMPRESSION: No evidence for acute intracranial hemorrhage or calvarial fracture. Chest X-Ray 07/03/25 13:04 IMPRESSION: Small opacities in the mid and lower lungs. Differential includes atelectasis/scarring or infiltrates. ECG Data EKG #1: Attestation: I personally reviewed and interpreted this ECG as follows: ECG completion date: 07/03/25 ECG completion time: 12:28 EKG Interpretation: normal rate, atrial fibrillation (78), non-specific ST changes and NL axis Discharge Plan Discharge Clinical Impression: Numbness of left hand Patient Disposition: Home Condition: Stable Instructions: Antibiotic Form, Transient Ischemic Attack (ED) Additional Instructions: Call The neurologist office tomorrow to arrange for outpatient follow up regarding your TIA symptoms. REturn to ER if they worsen. Patient Language: Montenegrin Prescriptions: No Action acetaminophen [Tylenol Arthritis Pain] 650 mg tablet extended release 650 mg PO Q8H PRN (Reason: pain) Qty: 7 0RF Eliquis 2.5 mg tablet 2.5 mg PO BID furosemide 40 mg tablet 20 mg PO DAILY famotidine [Acid Controller] 20 mg tablet 20 mg PO DAILY rosuvastatin 40 mg tablet 40 mg PO HS metoprolol tartrate 50 mg Tablet 50 mg PO DAILY spironolactone 25 mg tablet 25 mg PO DAILY citalopram 20 mg tablet 20 mg PO DAILY calcium carbonate 195 mg calcium (500 mg) Tablet,Chewable 500 mg PO PRN PRN (Reason: Heartburn) aspirin [Children's Aspirin] 81 mg Tablet,Chewable 81 mg PO DAILY@0800 Qty: 30 0RF Follow-up/Referrals: Izaiah,Sven Lawler MD [Primary Care Provider] - Adelita Duke MD [Physician] - Quality Stroke Scale Stroke Scale 1: Stroke scale date:: 07/03/25 Stroke scale time:: 14:00 1a Level of consciousness: alert-0 1b Level of consciousness questions: answers both correctly-0 1c Level of consciousness commands: obeys both correctly-0 2 Best gaze: normal-0 3 Visual: no visual loss-0 4 Facial palsy: normal-0 5a Motor: left arm: no drift-0 5b Motor: right arm: no drift-0 6a Motor: left leg: no drift-0 6b Motor: right leg: no drift-0 7 Limb ataxia: absent-0 8 Sensory: normal-0 9 Best language: no aphasia-0 10 Dysarthria: normal-0 11 Extinction and inattention: no abnormality-0 Level:: 0
[2025-07-03] MEDS: SODIUM CHLORIDE 0.9% IV 500 ML 999 ML IV CONT (15:06)
[2025-07-03 15:09] VITALS: BP 177/99; PULSE 75; RESP 20; O2SAT 99
== END 2025-07-03 17:11 | disposition home or self-care (01) ==
PROVIDERS: Emergency Provider General Practice; PCP Internal Medicine
DX: R20.2 Paresthesia of skin (principal); I48.91 Unspecified atrial fibrillation; K21.9 Gastro-esophageal reflux disease without esophagitis; I10 Essential (primary) hypertension; F32.A Depression, unspecified; F41.9 Anxiety disorder, unspecified; E78.5 Hyperlipidemia, unspecified; Z85.3 Personal history of malignant neoplasm of breast; Z85.820 Personal history of malignant melanoma of skin
CPT/HCPCS: 36415; 70450; 71045; 80053; 82948; 84484; 85025; 85055; 85610; 85730; 93005; 96360; 99284; J7040

== ENCOUNTER 2025-07-16 03:27 | Emergency (ER) | payer MEDICARE, SELFPAY ==
--- NOTE | ~2025-07-16 | XR_ITS ---
XR chest 1V 07/16/2025 04:12 Indication: Altered mental status Procedure: AP view of the chest Comparison: 07/03/2025 Findings: Heart size normal. No focal air space disease, pulmonary edema, pleural effusion or suspected pneumothorax. There is atherosclerosis of the aorta. No acute osseous abnormality. There is a hiatal hernia. Impression: 1: No acute cardiopulmonary disease. Reviewed, dictated and finalized at location O. Impression: 1: No acute cardiopulmonary disease.
--- NOTE | ~2025-07-16 | CT_ITS ---
EXAMINATION: CT brain wo con DATE: 07/16/2025 04:10 INDICATION: Altered mental status TECHNIQUE: Computed tomography (CT) of the head was performed without intravenous contrast. Sagittal and coronal reconstructions were performed. The mA was adjusted according to patient size. Iterative reconstruction technique was employed. The dose-length product was 605.33 mGy-cm. COMPARISON: head CT dated 07/03/2025 FINDINGS: No acute intracranial hemorrhage, acute infarction or abnormal extra axial fluid collection. There is moderate scattered white matter hypoattenuation consistent with chronic small vessel ischemic disease. Symmetric prominence of the sulci consistent with mild to moderate age-appropriate diffuse cerebral volume loss. Ventricles are normal and symmetric. No mass/mass effect. Changes of bilateral intraocular lens replacement. The orbits, paranasal sinuses and mastoid air cells are normal. Atherosclerotic calcification at the bilateral carotid siphons. IMPRESSION: 1. No acute intracranial process. 2. Age-related changes including mild to moderate diffuse volume loss and moderate scattered white matter hypoattenuation consistent with chronic small vessel ischemic disease. Reviewed, dictated and finalized at location A. IMPRESSION: 1. No acute intracranial process. 2. Age-related changes including mild to moderate diffuse volume loss and moder ate scattered white matter hypoattenuation consistent with chronic small vessel ischemic disease.
[2025-07-16 03:33] VITALS: BP 166/98; PULSE 100; RESP 18; TEMP 36.7; O2SAT 100; O2SAT 98
--- NOTE | 2025-07-16 03:39 | ECG_ITS ---
Test Date: 2025-07-16 03:47:52 Measurements Intervals [place] Rate: 85 P: 0 IL: 0 QRS: 40 QRSD: 96 T: -21 QT: 342 QTc: 408 Interpretive Statements ATRIAL FIBRILLATION BORDERLINE ST-T WAVE ABNORMALITY- ANTEROLAT/INF LEADS BASELINE ARTIFACT- I, II, III, AVR, AVL, AVF, V1-V4 ABNORMAL ECG Compared to ECG 07/03/2025 12:28:19 NO SIGNIFICANT CHANGE Electronically Signed On 07-16-2025 07:22:52 CDT by Alden Mason D.O.
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
[2025-07-16 04:00] LABS: Hematocrit 43.8 % (37.0-47.0); Hemoglobin 14.6 g/dL (12.0-15.0); Immature Granulocyte Percent A 0.4 % (0-0.5); Immature Platelet Fraction Pct 5.7 % (0.9-11.2); Lymphocytes Absolute Auto 1.10 K/mm3 (0.9-3.2); Mean Corpuscular HGB Conc 33.3 g/dl (32-36); Mean Corpuscular Hemoglobin 30.4 pg (26-34); Mean Corpuscular Volume 91.3 fl (80-100); Nucleated Red Blood Cells Absolute Auto 0.000 K/mm3 (0.0-0.012); Nucleated Red Blood Cells Perc 0.0 % (0.0-0.2); Platelet Count Result 131 k/mm3 (150-375); Red Blood Count 4.80 M/mm3 (4.2-5.4); White Blood Count 5.3 K/mm3 (4.5-10.0)
[2025-07-16 04:02] LABS: Alveolar/Arterial O2 Gradient 31.6 mmHg; Fractional Inspired Oxygen 21 %; HCO3 ABG 21.8 mEq/l (22.0-26.0); Oxygen Content ABG 20.0 %vol (16.0-22.0); Oxygen Saturation ABG 96.0 % (95.0-100.0); PCO2 ABG 33.3 mmHg (35.0-45.0); PO2 ABG 78.3 mmHg (80.0-100.0); PO2 FiO2 Ratio Arterial Blood 3.73 %
[2025-07-16 04:05] LABS: Modified Allen's Test Pass; Site Drawn RIGHT RADIAL
[2025-07-16 04:08] LABS: Alanine Aminotransferase 20 U/L (6-35); Albumin Level 4.3 g/dL (3.5-5.1); Alkaline Phosphatase 59 U/L (38-126); Anion Gap 9 mmol/L (4-12); Aspartate Amino Transferase 32 U/L (14-36); Bilirubin,Total 1.2 mg/dL (0.2-1.3); Blood Urea Nitrogen 15 mg/dL (7-17); Calcium 9.7 mg/dL (8.4-10.2); Carbon Dioxide 25 mmol/L (22-30); Chloride 100 mmol/L (98-107); Estimated Glomerular Filt Rate 49; Glucose 105 mg/dL (65-110); Magnesium 1.8 mg/dL (1.6-2.3); Potassium 3.6 mmol/L (3.4-5.0); Sodium 134 mmol/L (137-145); Total Protein 6.8 g/dL (6.3-8.2)
[2025-07-16 04:11] LABS: INR 1.5; Prothrombin Time 17.8 Seconds (11.1-14.7)
[2025-07-16 04:12] LABS: Partial Thromboplastin Time 31.7 Seconds (22.3-36.8)
[2025-07-16] MEDS: SODIUM CHLORIDE 0.9% IV 1,000 ML 999 ML IV CONT (04:13)
[2025-07-16 04:19] LABS: Troponin I < 0.012 ng/mL (0.000-0.034)
[2025-07-16 04:32] LABS: Influenza A QL RT-PCR Negative (Negative); Influenza B QL RT-PCR Negative (Negative); RSV RNA, RT-PCR Negative (Negative); SARS-CoV-2 RNA PCR Negative (Negative)
[2025-07-16 04:37] LABS: Procalcitonin 0.1 ng/mL
[2025-07-16 05:04] VITALS: BP 159/67; PULSE 91; RESP 18; O2SAT 99
[2025-07-16 05:51] LABS: Add Urine Microscopic? NO; Appearance Urine Clear (Clear); Glucose Urine UA Negative (Negative); Leukocyte Esterase Ur Negative LEU/UL (Negative); Nitrate Urine Negative (Negative); Specific Grav Ur 1.004 (1.001-1.035)
[2025-07-16 06:18] LABS: Cannabinoid Screen Urine Negative (Negative)
[2025-07-16 07:02] VITALS: BP 155/76; PULSE 96; RESP 14; O2SAT 96
== END 2025-07-16 07:02 | disposition home or self-care (01) ==
PROVIDERS: Emergency Provider Emergency Medicine; PCP Internal Medicine
DX: F22 Delusional disorders (principal); I48.91 Unspecified atrial fibrillation; Z20.822 Contact with and (suspected) exposure to COVID-19; Z79.01 Long term (current) use of anticoagulants; Z79.82 Long term (current) use of aspirin; Z79.899 Other long term (current) drug therapy
CPT/HCPCS: 36415; 36600; 70450; 71045; 80053; 80307; 81003; 82077; 82805; 83605; 83735; 84145; 84484; 85018; 85025; 85055; 85610; 85730; 87637; 93005; 96360; 99284; J7030